=== PATIENT | male | born 1965 | race Caucasian/White ===

== ENCOUNTER 2017-04-04 11:42 | Day surgery (SDC) | payer OTHER ==
[2017-03-31 15:16] VITALS: BMI 25.6
[~2017-04-04 11:42] MED LIST: LACTATED RINGERS 1,000 ML IV SCH
[2017-04-04 11:59] VITALS: RESP 16; TEMP 97.4
[2017-04-04] MEDS ORDERED: LIDOCAINE 1% 20 ML VIAL (10MG/ML) FOR IV START INTRADERMA ONE (12:02)
[2017-04-04] MEDS ORDERED: PROPOFOL 10 MG/ML 20 ML VIAL IV ONE (13:50)
--- NOTE | 2017-04-04 14:17 | P.PCN ---
Date of Procedure: 04/04/17 Procedure(s) Performed: Procedure: Total colonoscopy. Preoperative diagnosis: History of diverticulitis and abnormal CT. Postoperative diagnosis: 1. Diverticulosis with no evidence of acute diverticulitis or strictures. 2. No polyps or cancer. Preparation: HalfLytely prep. Sedation: Was provided by anesthesia. Brief clinical history: The patient is a 51-year-old male who I have evaluated in the office because of recent episode of diverticulitis and abnormal CT. The patient was prescribed antibiotics and this evaluation was scheduled few weeks after that to assess for any precipitating causes, including neoplasia or inflammatory bowel disease, and to rule out strictures or other complications. Procedure: With the patient on his left lateral decubitus position and after informed consent and adequate sedation, the perianal area was inspected and it did not show any fissures or fistulas. There were no masses felt on digital rectal examination. The Olympus CFQ 160L video colonoscope was then inserted in the rectum in the usual fashion and advanced to the cecum. There were multiple diverticular orifices seen scattered in the sigmoid and left side with some areas of submucosal hemorrhage in the vicinity of diverticular orifices in the distal sigmoid consistent with prior bout(s) of diverticulitis. There were no strictures. On the right side there were a few small diverticular orifices scattered with no evidence of acute diverticulitis. No polyps or tumors were seen. The mucosa, otherwise, appeared healthy. I retroflexed the endoscope in the rectum before the endoscope was withdrawn. The patient tolerated the procedure well. Plan: The patient was reassured and I discussed with him and his mother. He will follow up with you as planned and I recommended repeat exam in 10 years.
[2017-04-04 14:36] VITALS: BP 124/81; PULSE 82
== END 2017-04-04 14:54 | disposition home or self-care (01) ==
LOC: ORWHC2ENDO 11:42
DX: K57.30 Diverticulosis of large intestine without perforation or abscess without bleeding (principal); F17.200 Nicotine dependence, unspecified, uncomplicated
CPT/HCPCS: 45378; J2704

== ENCOUNTER → 2017-10-19 | Outpatient (CLI) | payer OTHER ==
--- NOTE | 2017-10-19 11:55 | CT ---
EXAMINATION TYPE: CT abdomen pelvis wo con DATE OF EXAM: 10/19/2017 COMPARISON: NONE INDICATION: RLQ pain DLP: 877 mGycm, Automated exposure control for dose reduction was used. CONTRAST: 0 mL of . Study performed without Oral Contrast TECHNIQUE: Axial images were obtained from above the diaphragm to the pubic rami in the axial plane a t 5 mm thick sections. Reconstructed images are reviewed on the computer in the coronal plane. FINDINGS: Limited CT sections are obtained the lung bases. The lung bases are clear. CT ABDOMEN: Liver: Normal Spleen: Normal Pancreas: Normal Adrenal glands: The adrenal glands are normal. Gallbladder: Normal Kidneys: No masses are evident. No hydronephrosis is present. No cysts are present. No renal stone s are evident. Aorta: Vascular calcification is within the aorta. Inferior vena cava: Normal. CT PELVIS: Loops of bowel within the abdomen and pelvis are normal. Studies performed without oral contrast limiting the evaluation. Appendix: There are inflammatory changes adjacent to the cecum. Is difficult to separate the appendix from the terminal ileum. There is a curvilinear calcific density which may be an appendicolith or re sidual contrast within the appendix. This structure is prominent. Clinical management of suspected ap pendicitis is recommended. Urinary bladder: Normal. Genitourinary structures: Prostate appears unremarkable. Osseous structures: No suspicious lytic or sclerotic lesions. IMPRESSIONS: 1. Some inflammatory change in the expected region of the appendix. What appears to be the appendix is dilated although difficult to separate from the terminal ileum. Clinical management of suspected a ppendicitis is recommended.
== END | disposition home or self-care (01) ==
LOC: RADCTMAIN 10:41
PROVIDERS: ATTEND Family Medicine
DX: R93.5 Abnormal findings on diagnostic imaging of other abdominal regions, including retroperitoneum (principal); R10.31 Right lower quadrant pain
CPT/HCPCS: 74176

== ENCOUNTER → 2017-12-06 | Outpatient (CLI) | payer OTHER ==
--- NOTE | 2017-12-06 11:35 | CT ---
EXAMINATION TYPE: CT abdomen pelvis wo con DATE OF EXAM: 12/06/2017 COMPARISON: 10/19/2017 INDICATION: Attn: appendix; Abdominal Abscess DLP: 1038 mGycm, Automated exposure control for dose reduction was used. CONTRAST: 0 mL of Isovue 370. Study performed without Oral Contrast TECHNIQUE: Axial images were obtained from above the diaphragm to the pubic rami in the axial plane a t 5 mm thick sections. Reconstructed images are reviewed on the computer in the coronal plane. FINDINGS: Limited CT sections are obtained the lung bases. The lung bases are clear. CT ABDOMEN: Liver: Small calcifications along the diaphragm are within the superior right lobe liver. Spleen: Normal Pancreas: Normal Adrenal glands: The adrenal glands are normal. Gallbladder: Normal Kidneys: No masses are evident. No hydronephrosis is present. No cysts are present. No renal stone s are identified. Aorta: Vascular calcification is within the aorta. Inferior vena cava: Normal. CT PELVIS: Loops of bowel within the abdomen and pelvis are normal. Study is without oral contrast limiting bowel loop evaluation. Appendix: Not identified. No suspicious inflammatory changes are evident some mild thickening of the cecum may be present. What may be the appendix contains an appendicolith and is dilated at 1.8 cm. Th is is somewhat difficult to separate from the terminal ileum. Clinical management of any suspected ap pendicitis be required. Urinary bladder: Normal. Genitourinary structures: Prostate appears normal. Osseous structures: No suspicious lytic or sclerotic lesions. IMPRESSIONS: 1. Difficulty what appears to be the appendix from the terminal ileum. An appendicolith m ay be present. The appendix appears dilated although no inflammatory changes are adjacent. Clinical m anagement of any suspected appendicitis will be required. Findings appear less suspicious than the co mparison. 2. Intra-abdominal abscess is not identified.
== END | disposition home or self-care (01) ==
LOC: RADCTMAIN 09:03
PROVIDERS: ATTEND Family Medicine
DX: K65.1 Peritoneal abscess (principal)
CPT/HCPCS: 74176

== ENCOUNTER 2021-07-10 09:19 | Inpatient (IN) | payer OTHER ==
--- NOTE | 2021-07-10 10:03 | ED ---
General Adult HPI - General Chief complaint: Extremity Problem,Nontraumatic Stated complaint: bilat leg swelling Time Seen by Provider: 07/10/21 09:25 Source: patient, RN notes reviewed, old records reviewed Mode of arrival: ambulatory Limitations: no limitations - History of Present Illness Initial comments: This is a 56-year-old male who presents emergency Department with a past medical history significant for alcoholism. Patient states since Thanksgiving he has had swelling in his legs which is gone progressively worse states is going up his legs into his scrotum and now into his belly and upper extremities. Patient states she's also had a change in his skin color and his mother told him that his eyes appear to be yellow. Patient states that he continues drinking his last drink was last evening. Patient denies any chest pain or difficulty breathing. Patient denies any recent fever chills or cough. Patient denies any significant abdominal pain is somewhat uncomfortable because it is significantly more distended than normal. - Related Data Home Medications Medication Instructions Recorded Confirmed No Known Home Medications 03/31/17 04/04/17 Allergies Allergy/AdvReac Type Severity Reaction Status Date / Time No Known Allergies Allergy Verified 07/10/21 09:24 Review of Systems ROS Statement: Those systems with pertinent positive or pertinent negative responses have been documented in the HPI. ROS Other: All systems not noted in ROS Statement are negative. Past Medical History Additional Past Medical History / Comment(s): RECENT ABSCESS TO LOWER INTESTINES- WAS ON ANTIBIOTICS-RESOLVED AT THIS TIME History of Any Multi-Drug Resistant Organisms: None Reported Past Surgical History: No Surgical Hx Reported Past Anesthesia/Blood Transfusion Reactions: No Reported Reaction Past Psychological History: No Psychological Hx Reported Smoking Status: Never smoker Past Alcohol Use History: Daily Past Drug Use History: Marijuana - Past Family History Mother Family Medical History: No Reported History General Exam - General Exam Comments Initial Comments: GENERAL: Patient is well-developed and well-nourished. Patient is nontoxic and well-hydrated and is in mild distress. ENT: Neck is soft and supple. No significant lymphadenopathy is noted. Oropharynx is clear. Moist mucous membranes. Neck has full range of motion without eliciting any pain. EYES: Patient has sclera icterus. Extraocular movements were intact and pupils were equal round and reactive to light. Eyelids were unremarkable. PULMONARY: Unlabored respirations. Good breath sounds bilaterally. No audible rales rhonchi or wheezing was noted. CARDIOVASCULAR: There is a regular rate and rhythm without any murmurs gallops or rubs. ABDOMEN: Abdomen is diffusely distended consistent with ascites. SKIN: Patient appears jaundiced NEUROLOGIC: Patient is alert and oriented x3. Cranial nerves II through XII are grossly intact. Motor and sensory are also intact. Normal speech, volume and content. Symmetrical smile. MUSCULOSKELETAL: Normal extremities with adequate strength and full range of motion. Patient has 2+ edema bilateral into his scrotum and abdomen. LYMPHATICS: No significant lymphadenopathy is noted PSYCHIATRIC: Normal psychiatric evaluation. Limitations: no limitations Course Vital Signs 07/10/21 07/10/21 09:21 10:07 Temperature 98 F Pulse Rate 133 H 113 H Respiratory 22 18 Rate Blood Pressure 166/95 152/85 O2 Sat by Pulse 99 97 Oximetry Medical Decision Making - Medical Decision Making EKG shows sinus tachycardia at 117 bpm MA interval is 2006 QT interval 318 QTC is 443. Patient's EKG shows no ST segment depression or elevation Chest x-ray shows a partial infiltrate in the right base. I spoke with Dr. Shell he agreed to admit the patient admitted the patient wrote admitting orders. - Lab Data Result diagrams: 07/10/21 09:37 07/10/21 09:37 Lab Results 07/10/21 07/10/21 07/10/21 Range/Units 09:37 09:37 09:37 WBC 8.3 (3.8-10.6) k/uL RBC 3.51 L (4.30-5.90) m/uL Hgb 12.9 L (13.0-17.5) gm/dL Hct 39.2 (39.0-53.0) % MCV 111.8 H (80.0-100.0) fL MCH 36.6 H (25.0-35.0) pg MCHC 32.7 (31.0-37.0) g/dL RDW 14.8 (11.5-15.5) % Plt Count 63 L (150-450) k/uL MPV 10.9 Neutrophils % (Manual) 54 % Lymphocytes % (Manual) 19 % Monocytes % (Manual) 15 % Eosinophils % (Manual) 8 % Basophils % (Manual) 4 % Neutrophils # (Manual) 4.48 (1.3-7.7) k/uL Lymphocytes # (Manual) 1.58 (1.0-4.8) k/uL Monocytes # (Manual) 1.25 H (0-1.0) k/uL Eosinophils # (Manual) 0.66 (0-0.7) k/uL Basophils # (Manual) 0.33 H (0-0.2) k/uL Nucleated RBCs 0 (0-0) /100 WBC Manual Slide Review Performed Poikilocytosis (manual Present Macrocytosis Marked A Sodium 137 (137-145) mmol/L Potassium 4.1 (3.5-5.1) mmol/L Chloride 108 H (98-107) mmol/L Carbon Dioxide 22 (22-30) mmol/L Anion Gap 7 mmol/L BUN 9 (9-20) mg/dL Creatinine 0.76 (0.66-1.25) mg/dL Est GFR (CKD-EPI)AfAm >90 (>60 ml/min/1.73 sqM) Est GFR (CKD-EPI)NonAf >90 (>60 ml/min/1.73 sqM) Glucose 122 H (74-99) mg/dL Calcium 7.8 L (8.4-10.2) mg/dL Magnesium 1.6 (1.6-2.3) mg/dL Total Bilirubin 9.6 H (0.2-1.3) mg/dL AST 138 H (17-59) U/L ALT 70 H (4-49) U/L Alkaline Phosphatase 421 H (38-126) U/L NT-Pro-B Natriuret Pep pg/mL Total Protein 7.0 (6.3-8.2) g/dL Albumin 2.4 L (3.5-5.0) g/dL Amylase 46 (30-110) U/L Lipase 259 (23-300) U/L Serum Alcohol 182 mg/dL Coronavirus (PCR) (Not Detectd) 07/10/21 07/10/21 Range/Units 10:01 10:06 WBC (3.8-10.6) k/uL RBC (4.30-5.90) m/uL Hgb (13.0-17.5) gm/dL Hct (39.0-53.0) % MCV (80.0-100.0) fL MCH (25.0-35.0) pg MCHC (31.0-37.0) g/dL RDW (11.5-15.5) % Plt Count (150-450) k/uL MPV Neutrophils % (Manual) % Lymphocytes % (Manual) % Monocytes % (Manual) % Eosinophils % (Manual) % Basophils % (Manual) % Neutrophils # (Manual) (1.3-7.7) k/uL Lymphocytes # (Manual) (1.0-4.8) k/uL Monocytes # (Manual) (0-1.0) k/uL Eosinophils # (Manual) (0-0.7) k/uL Basophils # (Manual) (0-0.2) k/uL Nucleated RBCs (0-0) /100 WBC Manual Slide Review Poikilocytosis (manual Macrocytosis Sodium (137-145) mmol/L Potassium (3.5-5.1) mmol/L Chloride (98-107) mmol/L Carbon Dioxide (22-30) mmol/L Anion Gap mmol/L BUN (9-20) mg/dL Creatinine (0.66-1.25) mg/dL Est GFR (CKD-EPI)AfAm (>60 ml/min/1.73 sqM) Est GFR (CKD-EPI)NonAf (>60 ml/min/1.73 sqM) Glucose (74-99) mg/dL Calcium (8.4-10.2) mg/dL Magnesium (1.6-2.3) mg/dL Total Bilirubin (0.2-1.3) mg/dL AST (17-59) U/L ALT (4-49) U/L Alkaline Phosphatase (38-126) U/L NT-Pro-B Natriuret Pep 104 pg/mL Total Protein (6.3-8.2) g/dL Albumin (3.5-5.0) g/dL Amylase (30-110) U/L Lipase (23-300) U/L Serum Alcohol mg/dL Coronavirus (PCR) Not Detected (Not Detectd) Disposition Clinical Impression: Cirrhosis, Anasarca, Ascites, Alcohol intoxication Disposition: [facility] Referrals: Rey Shell MD [Primary Care Provider] - 1-2 days Time of Disposition: 10:53
[2021-07-10 10:04] LABS: HCT 39.2 % (39.0-53.0); HGB 12.9 gm/dL (13.0-17.5); MCH 36.6 pg (25.0-35.0); MCHC 32.7 g/dL (31.0-37.0); MCV 111.8 fL (80.0-100.0); Macrocytosis Marked; Mean Platelet Volume 10.9; Platelet Count 63 k/uL (150-450); RBC 3.51 m/uL (4.30-5.90); RDW 14.8 % (11.5-15.5); WBC 8.3 k/uL (3.8-10.6)
[2021-07-10 10:06] LABS: ALT 70 U/L (4-49); AST 138 U/L (17-59); African American GFR (CKD) >90 (>60 ml/min/1.73 sqM); Albumin 2.4 g/dL (3.5-5.0); Alkaline Phosphatase 421 U/L (38-126); Amylase 46 U/L (30-110); Anion Gap 7 mmol/L; Blood Urea Nitrogen 9 mg/dL (9-20); Calcium 7.8 mg/dL (8.4-10.2); Carbon Dioxide 22 mmol/L (22-30); Chloride 108 mmol/L (98-107); Glucose 122 mg/dL (74-99); Lipase 259 U/L (23-300); Non-African American GFR(CKD) >90 (>60 ml/min/1.73 sqM); Potassium 4.1 mmol/L (3.5-5.1); Sodium 137 mmol/L (137-145); Total Bilirubin 9.6 mg/dL (0.2-1.3)
[2021-07-10 10:12] LABS: Alcohol 182 mg/dL
--- NOTE | 2021-07-10 10:12 | XR ---
EXAMINATION TYPE: XR chest 2V DATE OF EXAM: 07/10/2021 COMPARISON: None HISTORY: Shortness of breath TECHNIQUE: Frontal and lateral views of the chest are obtained. FINDINGS: There is mild ill-defined opacity in one of the lung bases posteriorly best seen on the la teral view. Based on the frontal view, this most likely is in the right lung base. The findings are m ost consistent with an pneumonic infiltrate clinical correlation short-term follow-up to resolution i s recommended. There is no large pleural effusion and no pneumothorax. Heart size is normal and the pulmonary vascul ature is not congested. The osseous structures are intact IMPRESSION: Infiltrate in one of the lung bases posteriorly likely in the right lung base. Clinical correlation short-term follow-up to resolution is recommended.
[2021-07-10 10:50] LABS: Basophils # (M) 0.33 k/uL (0-0.2); Eosinophils # (M) 0.66 k/uL (0-0.7); Lymphocytes # (M) 1.58 k/uL (1.0-4.8); Monocytes # (M) 1.25 k/uL (0-1.0); Neutrophils # (M) 4.48 k/uL (1.3-7.7); Neutrophils % (M) 54 %; Nucleated Red Blood Cells 0 /100 WBC (0-0); Total Cells Counted 100
[2021-07-10 10:51] LABS: Poikilocytosis (M) Present
[2021-07-10] MEDS ORDERED: SODIUM CHLORIDE 0.9% 1,000 ML IV ONE (11:15)
[2021-07-10] MEDS ORDERED: LORazepam 2 MG/ML INJ IV PRN ×3 (11:19)
[2021-07-10] MEDS ORDERED: THIAMINE 100 MG/ML 2 ML VIAL IM STA (11:19)
[2021-07-10 13:20] LABS: Appearance,Urine Cloudy (Clear); Bacteria,Urine Rare /hpf; Bilirubin,Urine 3+ (Negative); Blood,Urine Negative (Negative); Color,Urine Dark Brown; Glucose,Urine (UA) Trace (Negative); Hyaline Casts,Urine 41 /lpf (0-2); Ketones,Urine Trace (Negative); Leukocyte Esterase,Urine Negative (Negative); Mucus,Urine Many /hpf; Nitrite,Urine Negative (Negative); Protein,Urine 1+ (Negative); RBC,Urine 3 /hpf (0-5); Specific Gravity,Urine 1.034 (1.001-1.035); Squamous Epithelial Cell,Urine 2 /hpf (0-4); WBC,Urine 6 /hpf (0-5)
[2021-07-10] MEDS: cloNIDine HCL 0.1 MG TAB PO SCH ×3 (13:44→22:46)
[2021-07-10] MEDS: THIAMINE 100 MG TAB PO SCH (17:11)
--- NOTE | 2021-07-10 18:07 | US ---
EXAMINATION TYPE: US abdomen complete DATE OF EXAM: 07/10/2021 COMPARISON: CT 2013 CLINICAL HISTORY: cirrhosis. EXAM MEASUREMENTS: Liver Length: 15.7 cm Gallbladder Wall: 0.6 cm CBD: 0.3 cm Spleen: 10.8 cm Right Kidney: 11.4 x 5.1 x 5.4 cm Left Kidney: 11.7 x 5.9 x 5.1 cm Pancreas: obscured by overlying midline bowel gas Liver: nodular contour . Mild atrophy. Gallbladder: multiple mobile echogenic foci, thickened wall at 0.6cm Evidence for sonographic Abernathy's sign: no CBD: visualized portions wnl Spleen: wnl Right Kidney: No shadowing calculi or renal collecting system dilatation. Left Kidney: No shadowing calculi or renal collecting system dilatation. Upper IVC: Noncollapsed. Abd Aorta: obscured by overlying midline bowel gas Ascites noted Right pleural effusion noted IMPRESSION: 1. Hepatic cirrhosis and ascites. 2. Cholelithiasis with gallbladder wall thickening and trace pericholecystic fluid which may be secon bhavin to acute cholecystitis or secondary to ascites. Clinical correlation for acute cholecystitis rec ommended, HIDA scan may be beneficial in this case.
[2021-07-10] MEDS ORDERED: IOPAMIDOL CONTRAST (ORAL USE) VIAL PO PRN (21:59)
--- NOTE | 2021-07-11 00:16 | CT ---
EXAMINATION TYPE: CT chest abdomen wo con DATE OF EXAM: 07/10/2021 COMPARISON: CT abdomen pelvis 12/06/2017 HISTORY: pleural effusion,elevated lfts CT DLP: 1068.8 mGycm Automated exposure control for dose reduction was used. Images obtained from the thoracic inlet to the mid pelvis with oral contrast only. There is moderate right pleural effusion. There is airspace infiltrate atelectasis right lower lobe. Heart size is fairly normal. There is no mediastinal adenopathy. There are no hilar masses. There is no pericardial effusion. Liver is small and irregular consistent with cirrhosis. There is large amount of abdominal ascites fl uid. Spleen measures 10.5 cm. The liver measures 16 cm. There is no evidence of pancreatic mass. The stomach is intact. The kidneys have normal size. There is no hydronephrosis. There is no adrenal mass. There is no retro peritoneal adenopathy. There is no sign of a bowel obstruction. There is normal oral contrast opacifi cation of the small bowel. No evidence of small bowel obstruction. There is some subcutaneous edema a round the abdomen. Thoracic and lumbar vertebrae have normal alignment. There is no compression fract ure. Sternum is intact. IMPRESSION: There is moderately large amount of abdominal ascites fluid. There is moderate right pleural effusion . Changes in the liver consistent with cirrhosis. These abnormalities appear new compared to old exam . No bowel obstruction. Subcutaneous edema around the abdomen appears new compared to old exam.
[2021-07-11] MEDS: THIAMINE 100 MG TAB PO SCH ×2 (07:54→16:29)
[2021-07-11] MEDS: cloNIDine HCL 0.1 MG TAB PO SCH ×3 (07:54→22:32)
--- NOTE | 2021-07-11 11:25 | HP ---
HISTORY AND PHYSICAL DATE OF SERVICE: 07/10/2021 This patient is a 56-year-old white male who was admitted to the hospital with ascites, severe swelling in his lower extremities and scrotal swelling. He has a history of alcoholism. He has severe elevated bilirubin over 8 and he had the acute liver failure of unclear etiology, possibly due to chronic alcoholism. He has not been seen by a doctor in many years. He takes no medications at home. ALLERGIES: NEGATIVE. REVIEW OF SYSTEMS: Fourteen-point review of systems negative. PAST MEDICAL HISTORY: Recent abscess to lower intestines, was on antibiotics and resolved. He does not smoke. He has been drinking alcohol, like 7 beers a day, for 20 to 30 years. Marijuana. FAMILY HISTORY: Mother with hypertension. PHYSICAL EXAMINATION: Well developed, well nourished. Psych: Fair mood and affect. Cardiovascular S1, S2. Lungs clear. Rales at the base. GI ascitic wave positive. Abdominal bloating due to ascites. Extremities show scrotal edema and 2 to 3+ pedal edema throughout his lower extremities consistent with ascites with third spacing into lower extremities. Psych normal mood and affect. His pulse rate is high, 100 to 120s, temperature 98. Blood pressure is high, 150s to 160s over 80s to 90s, O2 97 to 99. EKG shows no acute ischemia. Chest x-ray shows partial infiltrate in the right lung base. Hemoglobin is 12.9. Unclear etiology for anemia, possibly due to liver failure and ascites. Glucose 122. AST is 138, ALT 70, alkaline phosphatase 421, bilirubin 9.5. COVID negative. ASSESSMENT: 1. Cirrhosis and ascites. 2. Alcohol intoxication. 3. Right pleural effusion. CT of chest, abdomen and ultrasound of the abdomen and pelvis. Thoracentesis will be done. Surgical consult. Elevated liver enzymes. MMODL / IJN: [id number] /
--- NOTE | 2021-07-11 11:53 | P.GSCN ---
History of Present Illness Consult date: 07/11/21 Reason for Consult: Hyperbilirubinemia History of present illness: Is a 56-year-old male with extensive alcohol use history. Patient states that he noticed C-turn jaundiced after New Year's. He states he drinks 6-12 beers per day. He hasn't drank in 2 days. He denies any abdominal pain. Past Medical History Past Medical History: Skin Disorder Additional Past Medical History / Comment(s): RECENT ABSCESS TO LOWER INTESTINES- WAS ON ANTIBIOTICS-RESOLVED AT THIS TIME, psoriasis history. History of Any Multi-Drug Resistant Organisms: None Reported Past Surgical History: No Surgical Hx Reported Past Anesthesia/Blood Transfusion Reactions: No Reported Reaction Past Psychological History: No Psychological Hx Reported Smoking Status: Never smoker Past Alcohol Use History: Daily Past Drug Use History: Marijuana Additional Drug Use History / Comment(s): SMOKES 1-2 TIMES WEEKLY - Past Family History Mother Family Medical History: No Reported History Medications and Allergies Home Medications Medication Instructions Recorded Confirmed Type Ibuprofen [Motrin Ib] 800 mg PO Q8H PRN 07/10/21 07/10/21 History Multivitamins, Thera [Multivitamin 1 tab PO DAILY 07/10/21 07/10/21 History (formulary)] Allergies Allergy/AdvReac Type Severity Reaction Status Date / Time No Known Allergies Allergy Verified 07/10/21 13:33 Surgical - Exam Vital Signs Temp Pulse Resp BP Pulse Ox 98 F 133 H 22 166/95 99 07/10/21 09:21 07/10/21 09:21 07/10/21 09:21 07/10/21 09:21 07/10/21 09:21 - General well developed, well nourished, no distress - Eyes PERRL - ENT normal pinna - Neck no masses - Respiratory normal expansion - Cardiovascular Rhythm: regular - Abdomen Abdomen: soft, non tender Results - Labs 07/10/21 09:37 07/10/21 09:37 Abnormal Lab Results - Last 24 Hours (Table) 07/10/21 Range/Units 10:06 Urine Protein 1+ H (Negative) Urine Glucose (UA) Trace H (Negative) Urine Ketones Trace H (Negative) Urine Bilirubin 3+ H (Negative) Urine WBC 6 H (0-5) /hpf Urine Bacteria Rare H (None) /hpf Hyaline Casts 41 H (0-2) /lpf Urine Mucus Many H (None) /hpf Assessment and Plan Assessment: Alcohol cirrhosis. His elevated liver function tests are most likely due to focal abuse. No surgical intervention is planned.
[2021-07-11 12:35] LABS: Basophils # (A) 0.08 X 10*3/uL (0.00-0.10); Basophils % (A) 1.5 %; Eosinophils # (A) 0.19 X 10*3/uL (0.04-0.35); Eosinophils % (A) 3.5 %; HCT 33.3 % (39.6-50.0); Lymphocytes # (A) 1.09 X 10*3/uL (0.90-5.00); MCH 35.1 pg (27.0-32.0); MCV 106.4 fL (80.0-97.0); Mean Platelet Volume 12.5 fL (9.5-12.2); Monocytes # (A) 0.78 X 10*3/uL (0.20-1.00); Monocytes % (A) 14.3 %; Neutrophils # (A) 3.28 X 10*3/uL (1.80-7.70); Neutrophils % (A) 60.1 %; Platelet Count 58 X 10*3/uL (140-440); RBC 3.13 X 10*6/uL (4.40-5.60); RDW 15.8 % (11.5-14.5); WBC 5.45 X 10*3/uL (4.50-10.00)
[2021-07-11 12:36] LABS: Macrocytosis (M) 2+
--- NOTE | 2021-07-11 12:46 | PN ---
PROGRESS NOTE This 56-year-old white male was admitted with acute ascites and liver failure. CT scan of his abdomen and chest showed large amounts of ascites, for which Interventional Radiology was consulted. Will monitor his electrolytes. He is on Catapres for hypertension and tachycardia secondary to alcohol withdrawal. He is saturating 95 on room air with blood pressure 150/73. His pulse is 92-106, temperature 98.3. ASSESSMENT: 1. Acute ascites. 2. Acute liver failure secondary to alcohol intoxication. Rule out hepatitis. Wait for Interventional Radiology and Surgery to see him for possible thoracentesis and paracentesis prior to going home. Possibly some diuretics will be needed. Ammonia level is not elevated. It is at 25. Please see further orders. MMODL / IJN: [id number] /
[2021-07-11 13:32] LABS: African American GFR (CKD) 129.6 (60.0-200.0); Albumin 2.1 g/dL (3.8-4.9); Albumin/Globulin Ratio 0.61 (1.60-3.17); Anion Gap 9.2 mmol/L (10.00-18.00); BUN/Creat Ratio 12.32 Ratio (12.00-20.00); Blood Urea Nitrogen 7.8 mg/dL (9.0-27.0); Carbon Dioxide 21.7 mmol/L (20.0-27.5); Globulin 3.4 g/dL (1.6-3.3); Non-African American GFR(CKD) 111.8 (60.0-200.0); Potassium 4.2 mmol/L (3.5-5.5); Total Bilirubin 9.4 mg/dL (0.30-1.20); Total Protein 5.5 g/dL (6.2-8.2)
[2021-07-11 17:33] LABS: Hepatitis A Antibody IgM Nonreactive (Nonreactive); Hepatitis B Core IgM Nonreactive (Nonreactive); Hepatitis B Surface Antigen Nonreactive (Nonreactive); Hepatitis C IgG Antibody Nonreactive (Nonreactive)
[2021-07-12] MEDS: cloNIDine HCL 0.1 MG TAB PO SCH ×3 (08:46→20:59)
[2021-07-12] MEDS: THIAMINE 100 MG TAB PO SCH ×2 (08:46→17:38)
[2021-07-12 11:17] LABS: African American GFR (CKD) 142.4 (60.0-200.0); Albumin/Globulin Ratio 0.59 (1.60-3.17); Anion Gap 8.1 mmol/L (10.00-18.00); Carbon Dioxide 21.9 mmol/L (20.0-27.5); Globulin 3.4 g/dL (1.6-3.3); Non-African American GFR(CKD) 122.9 (60.0-200.0); Total Bilirubin 9.6 mg/dL (0.30-1.20); Total Protein 5.4 g/dL (6.2-8.2)
[2021-07-12 11:44] LABS: INR 2.1 (<1.2); Prothrombin Time 20.4 sec (9.0-12.0)
[2021-07-12 12:17] LABS: Platelet Count 53 k/uL (150-450)
[2021-07-12] MEDS: FUROSEMIDE 20 MG TAB PO SCH (13:51)
[2021-07-12 13:53] LABS: Basophils # (A) 0.06 X 10*3/uL (0.00-0.10); Eosinophils # (A) 0.22 X 10*3/uL (0.04-0.35); Eosinophils % (A) 3.6 %; HGB 10.9 g/dL (13.0-17.0); Lymphocytes # (A) 1.35 X 10*3/uL (0.90-5.00); Lymphocytes % (A) 22.2 %; MCH 35.4 pg (27.0-32.0); MCV 107.1 fL (80.0-97.0); Mean Platelet Volume 12.9 fL (9.5-12.2); Monocytes # (A) 1.02 X 10*3/uL (0.20-1.00); Monocytes % (A) 16.7 %; Neutrophils # (A) 3.42 X 10*3/uL (1.80-7.70); Neutrophils % (A) 56.2 %; Platelet Count 56 X 10*3/uL (140-440); RBC 3.08 X 10*6/uL (4.40-5.60); RDW 15.9 % (11.5-14.5); WBC 6.09 X 10*3/uL (4.50-10.00)
--- NOTE | 2021-07-12 14:28 | P.PN ---
Subjective Progress Note Date: 07/12/21 CHIEF COMPLAINT: Hyperbilirubinemia HISTORY OF PRESENT ILLNESS: Patient has history of extensive alcohol use. Patient is jaundiced. He denies any abdominal pain. He is scheduled for paracentesis today. He denies any nausea or vomiting. Afebrile. WBC 6.09 hemoglobin 10.9 platelets 53 INR 2.1 total bilirubin 9.60 AST 98 ALT 54 alk phos 250 hepatitis panel negative serum alcohol level CLXXXII PHYSICAL EXAM: VITAL SIGNS: Reviewed. GENERAL: Well-developed in no acute distress. HEENT: No sclera icterus. Extraocular movements grossly intact. Moist buccal mucosa. Head is atraumatic, normocephalic. ABDOMEN: Soft. Distended nontender NEUROLOGIC: Alert and oriented. Cranial nerves II through XII grossly intact. ASSESSMENT: 1. Alcohol liver cirrhosis 2. Elevated LFTs and bilirubin due to alcohol abuse PLAN: -No surgical intervention planned -Continue supportive care Physician [facility] note has been reviewed by physician. Signing provider agrees with the documented findings, assessment, and plan of care. Objective - Vital Signs Vital signs: Vital Signs Temp 98.3 F 07/12/21 08:00 Pulse 86 07/12/21 08:00 Resp 16 07/12/21 08:00 BP 133/72 07/12/21 08:00 Pulse Ox 96 07/12/21 08:00 Intake & Output 07/11/21 07/12/21 07/12/21 18:59 06:59 18:59 Intake Total 708 Balance 708 Intake: Oral 708 Other: # Voids 1 2 - Labs CBC & Chem 7: 07/12/21 10:37 07/12/21 05:39 Labs: Abnormal Lab Results - Last 24 Hours (Table) 07/12/21 07/12/21 07/12/21 Range/Units 05:39 05:39 10:37 RBC 3.08 L (4.40-5.60) X 10*6/uL Hgb 10.9 L (13.0-17.0) g/dL Hct 33.0 L (39.6-50.0) % MCV 107.1 H (80.0-97.0) fL MCH 35.4 H (27.0-32.0) pg RDW 15.9 H (11.5-14.5) % Plt Count 56 L 53 L (140-440) X 10*3/uL MPV 12.9 H (9.5-12.2) fL Monocytes # 1.02 H (0.20-1.00) X 10*3/uL Immature Plt Fraction 14.0 H (1.1-6.1) % PT (9.0-12.0) sec INR (<1.2) Sodium 133 L (135-145) mmol/L Anion Gap 8.10 L (10.00-18.00) mmol/L BUN 7.0 L (9.0-27.0) mg/dL Creatinine 0.5 L (0.6-1.5) mg/dL Calcium 8.0 L (8.7-10.3) mg/dL Total Bilirubin 9.60 H (0.30-1.20) mg/dL AST 98 H (14-35) U/L ALT 54 H (10-49) U/L Alkaline Phosphatase 215 H (41-126) U/L Total Protein 5.4 L (6.2-8.2) g/dL Albumin 2.0 L (3.8-4.9) g/dL Globulin 3.4 H (1.6-3.3) g/dL Albumin/Globulin Ratio 0.59 L (1.60-3.17) g/dL 07/12/21 Range/Units 10:37 RBC (4.40-5.60) X 10*6/uL Hgb (13.0-17.0) g/dL Hct (39.6-50.0) % MCV (80.0-97.0) fL MCH (27.0-32.0) pg RDW (11.5-14.5) % Plt Count (140-440) X 10*3/uL MPV (9.5-12.2) fL Monocytes # (0.20-1.00) X 10*3/uL Immature Plt Fraction (1.1-6.1) % PT 20.4 H (9.0-12.0) sec INR 2.1 H (<1.2) Sodium (135-145) mmol/L Anion Gap (10.00-18.00) mmol/L BUN (9.0-27.0) mg/dL Creatinine (0.6-1.5) mg/dL Calcium (8.7-10.3) mg/dL Total Bilirubin (0.30-1.20) mg/dL AST (14-35) U/L ALT (10-49) U/L Alkaline Phosphatase (41-126) U/L Total Protein (6.2-8.2) g/dL Albumin (3.8-4.9) g/dL Globulin (1.6-3.3) g/dL Albumin/Globulin Ratio (1.60-3.17) g/dL
--- NOTE | 2021-07-12 14:56 | PN ---
PROGRESS NOTE This 56-year-old white male remains 96% on room air. Blood pressure 133/72, temp 98.3, respiratory rate 16-18. He was admitted with anasarca-type changes and liver failure, acute on chronic anemia, thrombocytopenia. Sodium is 133. BUN is 7, creatinine is 0.5. Negative for hepatitis. Continue with diuresis and cirrhosis type treatment. Please see surgical recommendations. MMODL / IJN: [id number] /
[2021-07-12 23:19] LABS: INR 2.1 (<1.2); Prothrombin Time 20.8 sec (9.0-12.0)
[2021-07-13 07:55] VITALS: TEMP 98
[2021-07-13] MEDS ORDERED: PHYTONADIONE ORAL 5 MG/5 ML ORAL.SYRG PO STA (08:55)
[2021-07-13] MEDS: THIAMINE 100 MG TAB PO SCH ×2 (08:56→16:35)
[2021-07-13] MEDS: FUROSEMIDE 20 MG TAB PO SCH (08:56)
[2021-07-13] MEDS: cloNIDine HCL 0.1 MG TAB PO SCH ×2 (08:56→16:35)
[2021-07-13 09:17] LABS: Albumin/Globulin Ratio 0.67 (1.60-3.17); Anion Gap 8.3 mmol/L (10.00-18.00); Blood Urea Nitrogen 9.1 mg/dL (9.0-27.0); Calcium 8.1 mg/dL (8.7-10.3); Carbon Dioxide 24.7 mmol/L (20.0-27.5); Potassium 4.4 mmol/L (3.5-5.5); Total Bilirubin 9.3 mg/dL (0.30-1.20)
--- NOTE | 2021-07-13 10:19 | US ---
EXAMINATION TYPE: US abdomen limited DATE OF EXAM: 07/13/2021 COMPARISON: US & CT CLINICAL HISTORY: assess for fluid pocket please. All four quadrants demonstrate small amount of free fluid. IMPRESSION: There is only a small amount of free fluid within the abdomen
--- NOTE | 2021-07-13 10:53 | P.PN ---
Subjective Progress Note Date: 07/13/21 CHIEF COMPLAINT: Hyperbilirubinemia HISTORY OF PRESENT ILLNESS: Patient has history of extensive alcohol use. Patient is jaundiced. He denies any abdominal pain. He is scheduled for paracentesis today. He denies any nausea or vomiting. Afebrile. Total bilirubin 9.3 AST 78 ALT 48 alk phos 183 PHYSICAL EXAM: VITAL SIGNS: Reviewed. GENERAL: Well-developed in no acute distress. HEENT: Extraocular movements grossly intact. Moist buccal mucosa. Head is atraumatic, normocephalic. ABDOMEN: Soft. Distended nontender NEUROLOGIC: Alert and oriented. Cranial nerves II through XII grossly intact. Skin. Jaundiced ASSESSMENT: 1. Alcohol liver cirrhosis 2. Elevated LFTs and bilirubin due to alcohol abuse PLAN: -No surgical intervention planned -Continue supportive care Physician Count Room Clerk note has been reviewed by physician. Signing provider agrees with the documented findings, assessment, and plan of care. Objective - Vital Signs Vital signs: Vital Signs Temp 98.0 F 07/13/21 07:55 Pulse 88 07/13/21 07:55 Resp 16 07/13/21 08:00 BP 142/77 07/13/21 07:55 Pulse Ox 96 07/13/21 07:55 Intake & Output 07/12/21 07/13/21 07/13/21 18:59 06:59 18:59 Intake Total 300 Balance 300 Intake: Oral 300 Other: # Voids 2 3 - Labs CBC & Chem 7: 07/12/21 10:37 07/13/21 05:28 Labs: Abnormal Lab Results - Last 24 Hours (Table) 07/12/21 07/12/21 07/12/21 Range/Units 05:39 05:39 10:37 RBC 3.08 L (4.40-5.60) X 10*6/uL Hgb 10.9 L (13.0-17.0) g/dL Hct 33.0 L (39.6-50.0) % MCV 107.1 H (80.0-97.0) fL MCH 35.4 H (27.0-32.0) pg RDW 15.9 H (11.5-14.5) % Plt Count 56 L 53 L (140-440) X 10*3/uL MPV 12.9 H (9.5-12.2) fL Monocytes # 1.02 H (0.20-1.00) X 10*3/uL Immature Plt Fraction 14.0 H (1.1-6.1) % PT (9.0-12.0) sec INR (<1.2) Sodium 133 L (135-145) mmol/L Anion Gap 8.10 L (10.00-18.00) mmol/L BUN 7.0 L (9.0-27.0) mg/dL Creatinine 0.5 L (0.6-1.5) mg/dL Calcium 8.0 L (8.7-10.3) mg/dL Total Bilirubin 9.60 H (0.30-1.20) mg/dL AST 98 H (14-35) U/L ALT 54 H (10-49) U/L Alkaline Phosphatase 215 H (41-126) U/L Total Protein 5.4 L (6.2-8.2) g/dL Albumin 2.0 L (3.8-4.9) g/dL Globulin 3.4 H (1.6-3.3) g/dL Albumin/Globulin Ratio 0.59 L (1.60-3.17) g/dL 07/12/21 07/12/21 07/13/21 Range/Units 10:37 17:43 05:28 RBC (4.40-5.60) X 10*6/uL Hgb (13.0-17.0) g/dL Hct (39.6-50.0) % MCV (80.0-97.0) fL MCH (27.0-32.0) pg RDW (11.5-14.5) % Plt Count (140-440) X 10*3/uL MPV (9.5-12.2) fL Monocytes # (0.20-1.00) X 10*3/uL Immature Plt Fraction (1.1-6.1) % PT 20.4 H 20.8 H (9.0-12.0) sec INR 2.1 H 2.1 H (<1.2) Sodium (135-145) mmol/L Anion Gap 8.30 L (10.00-18.00) mmol/L BUN (9.0-27.0) mg/dL Creatinine (0.6-1.5) mg/dL Calcium 8.1 L (8.7-10.3) mg/dL Total Bilirubin 9.30 H (0.30-1.20) mg/dL AST 78 H (14-35) U/L ALT (10-49) U/L Alkaline Phosphatase 183 H (41-126) U/L Total Protein 5.0 L (6.2-8.2) g/dL Albumin 2.0 L (3.8-4.9) g/dL Globulin (1.6-3.3) g/dL Albumin/Globulin Ratio 0.67 L (1.60-3.17) g/dL
[2021-07-13 11:21] LABS: Basophils # (A) 0.07 X 10*3/uL (0.00-0.10); Basophils % (A) 1.2 %; Eosinophils # (A) 0.24 X 10*3/uL (0.04-0.35); Eosinophils % (A) 4.2 %; HCT 32.4 % (39.6-50.0); HGB 10.6 g/dL (13.0-17.0); Lymphocytes # (A) 1.03 X 10*3/uL (0.90-5.00); Lymphocytes % (A) 18.1 %; MCH 35.6 pg (27.0-32.0); MCHC 32.7 g/dL (32.0-37.0); MCV 108.7 fL (80.0-97.0); Mean Platelet Volume 12.7 fL (9.5-12.2); Monocytes # (A) 0.99 X 10*3/uL (0.20-1.00); Monocytes % (A) 17.4 %; Neutrophils # (A) 3.32 X 10*3/uL (1.80-7.70); Neutrophils % (A) 58.6 %; Platelet Count 59 X 10*3/uL (140-440); RBC 2.98 X 10*6/uL (4.40-5.60); RDW 15.9 % (11.5-14.5); WBC 5.68 X 10*3/uL (4.50-10.00)
[2021-07-13 14:45] VITALS: BP 135/69; PULSE 85; RESP 18
[2021-07-13 16:30] LABS: INR 2.1 (<1.2); Prothrombin Time 20.9 sec (9.0-12.0)
== END 2021-07-13 18:27 | disposition home or self-care (01) | DRG 433 ==
LOC: EC 09:19 → 4SSUR 11:18
PROVIDERS: ADMIT Family Medicine; ATTEND Family Medicine
DX: K70.31 Alcoholic cirrhosis of liver with ascites (principal); F10.239 Alcohol dependence with withdrawal, unspecified; J90 Pleural effusion, not elsewhere classified; F10.229 Alcohol dependence with intoxication, unspecified; D64.9 Anemia, unspecified; D69.6 Thrombocytopenia, unspecified; I10 Essential (primary) hypertension; K70.40 Alcoholic hepatic failure without coma; N50.89 Other specified disorders of the male genital organs; Z82.49 Family history of ischemic heart disease and other diseases of the circulatory system; L40.9 Psoriasis, unspecified; Z20.822 Contact with and (suspected) exposure to COVID-19
CPT/HCPCS: 36415; 71046; 71250; 74150; 76700; 76705; 80053; 80074; 80320; 81001; 82140; 82150; 83690; 83735; 83880; 84484; 85025; 85049; 85610; 87635; 93005; 99285

== ENCOUNTER 2021-07-27 10:28 | Inpatient (IN) | payer OTHER ==
--- NOTE | 2021-07-27 12:31 | ED ---
General Adult HPI - General Chief complaint: Extremity Problem,Nontraumatic Stated complaint: Edema Time Seen by Provider: 07/27/21 12:00 Source: patient, family, RN notes reviewed Mode of arrival: ambulatory Limitations: no limitations - History of Present Illness Initial comments: Patient is a pleasant 56-year-old male presenting to the emergency Department with increased generalized edema. Patient was in the hospital 2 weeks ago with similar problems. Symptoms have worsened since that. Patient has not been active. Patient has edema of his abdomen scrotum and legs. Patient has noticed a jaundice discoloration of the skin. A ram was recently diagnosed with alcoholic cirrhosis. Patient states he septic and alcohol 17 days ago. - Related Data Home Medications Medication Instructions Recorded Confirmed Multivitamins, Thera [Multivitamin 1 tab PO DAILY 07/10/21 07/10/21 (formulary)] Previous Rx's Medication Instructions Recorded Furosemide [Lasix] 20 mg PO DAILY 90 Days #90 tab 07/13/21 Thiamine [Vitamin B-1] 100 mg PO BID-W/MEALS 30 Days #60 07/13/21 tab cloNIDine HCL [Catapres] 0.1 mg PO TID 30 Days #90 tab 07/13/21 Allergies Allergy/AdvReac Type Severity Reaction Status Date / Time No Known Allergies Allergy Verified 07/27/21 10:47 Review of Systems ROS Statement: Those systems with pertinent positive or pertinent negative responses have been documented in the HPI. ROS Other: All systems not noted in ROS Statement are negative. Constitutional: Denies: fever Eyes: Denies: eye pain ENT: Denies: ear pain Respiratory: Denies: cough Cardiovascular: Denies: chest pain Endocrine: Denies: fatigue Gastrointestinal: Denies: abdominal pain Genitourinary: Reports: as per HPI. Denies: urgency Musculoskeletal: Denies: back pain Skin: Reports: as per HPI Neurological: Denies: weakness Past Medical History Past Medical History: Skin Disorder Additional Past Medical History / Comment(s): RECENT ABSCESS TO LOWER INTESTINES- WAS ON ANTIBIOTICS-RESOLVED AT THIS TIME, psoriasis history. History of Any Multi-Drug Resistant Organisms: None Reported Past Surgical History: No Surgical Hx Reported Past Anesthesia/Blood Transfusion Reactions: No Reported Reaction Past Psychological History: No Psychological Hx Reported Smoking Status: Never smoker Past Alcohol Use History: Daily Past Drug Use History: Marijuana - Past Family History Mother Family Medical History: No Reported History General Exam Limitations: no limitations General appearance: alert, in no apparent distress Head exam: Present: atraumatic Eye exam: Present: scleral icterus Neck exam: Present: normal inspection Respiratory exam: Present: normal lung sounds bilaterally Cardiovascular Exam: Present: regular rate, normal rhythm GI/Abdominal exam: Present: other (Ascites). Absent: tenderness, pulsatile mass Extremities exam: Present: pedal edema. Absent: calf tenderness Neurological exam: Present: alert Psychiatric exam: Present: normal affect, normal mood Skin exam: Present: other (Jaundice) Course Vital Signs 07/27/21 07/27/21 10:40 13:13 Temperature 97.4 F L Pulse Rate 84 74 Respiratory 18 18 Rate Blood Pressure 126/73 O2 Sat by Pulse 99 99 Oximetry Medical Decision Making - Lab Data Result diagrams: 07/27/21 12:33 07/27/21 12:33 Lab Results 07/27/21 07/27/21 07/27/21 Range/Units 12:33 12:33 12:33 WBC 8.5 (3.8-10.6) k/uL RBC 3.43 L (4.30-5.90) m/uL Hgb 12.4 L (13.0-17.5) gm/dL Hct 38.5 L (39.0-53.0) % MCV 112.3 H (80.0-100.0) fL MCH 36.1 H (25.0-35.0) pg MCHC 32.2 (31.0-37.0) g/dL RDW 14.8 (11.5-15.5) % MPV 11.3 Macrocytosis Marked A PT 19.5 H (9.0-12.0) sec INR 1.9 H (<1.2) APTT 31.8 H (22.0-30.0) sec Sodium (137-145) mmol/L Potassium (3.5-5.1) mmol/L Chloride (98-107) mmol/L Carbon Dioxide (22-30) mmol/L Anion Gap mmol/L BUN (9-20) mg/dL Creatinine (0.66-1.25) mg/dL Est GFR (CKD-EPI)AfAm (>60 ml/min/1.73 sqM) Est GFR (CKD-EPI)NonAf (>60 ml/min/1.73 sqM) Glucose (74-99) mg/dL Calcium (8.4-10.2) mg/dL Total Bilirubin (0.2-1.3) mg/dL AST (17-59) U/L ALT (4-49) U/L Alkaline Phosphatase (38-126) U/L Total Protein (6.3-8.2) g/dL Albumin (3.5-5.0) g/dL Amylase (30-110) U/L Lipase (23-300) U/L Urine Color Yellow Urine Appearance Clear (Clear) Urine pH 7.0 (5.0-8.0) Ur Specific Cutler 1.007 (1.001-1.035) Urine Protein Negative (Negative) Urine Glucose (UA) Negative (Negative) Urine Ketones Negative (Negative) Urine Blood Negative (Negative) Urine Nitrite Negative (Negative) Urine Bilirubin 1+ H (Negative) Urine Urobilinogen 3.0 (<2.0) mg/dL Ur Leukocyte Esterase Negative (Negative) 07/27/21 Range/Units 12:33 WBC (3.8-10.6) k/uL RBC (4.30-5.90) m/uL Hgb (13.0-17.5) gm/dL Hct (39.0-53.0) % MCV (80.0-100.0) fL MCH (25.0-35.0) pg MCHC (31.0-37.0) g/dL RDW (11.5-15.5) % MPV Macrocytosis PT (9.0-12.0) sec INR (<1.2) APTT (22.0-30.0) sec Sodium 131 L (137-145) mmol/L Potassium 4.5 (3.5-5.1) mmol/L Chloride 101 (98-107) mmol/L Carbon Dioxide 21 L (22-30) mmol/L Anion Gap 9 mmol/L BUN 14 (9-20) mg/dL Creatinine 0.66 (0.66-1.25) mg/dL Est GFR (CKD-EPI)AfAm >90 (>60 ml/min/1.73 sqM) Est GFR (CKD-EPI)NonAf >90 (>60 ml/min/1.73 sqM) Glucose 106 H (74-99) mg/dL Calcium 8.2 L (8.4-10.2) mg/dL Total Bilirubin 12.4 H (0.2-1.3) mg/dL AST 114 H (17-59) U/L ALT 74 H (4-49) U/L Alkaline Phosphatase 360 H (38-126) U/L Total Protein 6.9 (6.3-8.2) g/dL Albumin 2.4 L (3.5-5.0) g/dL Amylase 37 (30-110) U/L Lipase 111 (23-300) U/L Urine Color Urine Appearance (Clear) Urine pH (5.0-8.0) Ur Specific Cutler (1.001-1.035) Urine Protein (Negative) Urine Glucose (UA) (Negative) Urine Ketones (Negative) Urine Blood (Negative) Urine Nitrite (Negative) Urine Bilirubin (Negative) Urine Urobilinogen (<2.0) mg/dL Ur Leukocyte Esterase (Negative) Disposition Clinical Impression: Anasarca, Cirrhosis, Ascites Disposition: ADMITTED IP TO THIS HOSP Is patient prescribed a controlled substance at d/c from ED?: No Referrals: Rey Shell MD [Primary Care Provider] - 1-2 days Decision Time: 13:30
[2021-07-27 12:42] LABS: Appearance,Urine Clear (Clear); Bilirubin,Urine 1+ (Negative); Blood,Urine Negative (Negative); Color,Urine Yellow; Glucose,Urine (UA) Negative (Negative); Ketones,Urine Negative (Negative); Leukocyte Esterase,Urine Negative (Negative); Nitrite,Urine Negative (Negative); Protein,Urine Negative (Negative); Specific Gravity,Urine 1.007 (1.001-1.035)
[2021-07-27 12:43] LABS: HCT 38.5 % (39.0-53.0); HGB 12.4 gm/dL (13.0-17.5); MCH 36.1 pg (25.0-35.0); MCHC 32.2 g/dL (31.0-37.0); MCV 112.3 fL (80.0-100.0); Macrocytosis Marked; Mean Platelet Volume 11.3; RBC 3.43 m/uL (4.30-5.90); RDW 14.8 % (11.5-15.5); WBC 8.5 k/uL (3.8-10.6)
[2021-07-27 12:54] LABS: ALT 74 U/L (4-49); AST 114 U/L (17-59); African American GFR (CKD) >90 (>60 ml/min/1.73 sqM); Albumin 2.4 g/dL (3.5-5.0); Alkaline Phosphatase 360 U/L (38-126); Amylase 37 U/L (30-110); Anion Gap 9 mmol/L; Blood Urea Nitrogen 14 mg/dL (9-20); Calcium 8.2 mg/dL (8.4-10.2); Carbon Dioxide 21 mmol/L (22-30); Chloride 101 mmol/L (98-107); Glucose 106 mg/dL (74-99); Lipase 111 U/L (23-300); Non-African American GFR(CKD) >90 (>60 ml/min/1.73 sqM); Potassium 4.5 mmol/L (3.5-5.1); Sodium 131 mmol/L (137-145); Total Bilirubin 12.4 mg/dL (0.2-1.3); Total Protein 6.9 g/dL (6.3-8.2)
--- NOTE | 2021-07-27 13:03 | XR ---
EXAMINATION TYPE: XR KUB DATE OF EXAM: 07/27/2021 COMPARISON: NONE HISTORY: Pain TECHNIQUE: Single supine KUB image of the abdomen is obtained FINDINGS: Small bowel demonstrates no evidence for dilatation or air fluid levels. Gas and fecal material is seen in non-distended colon. No convincing evidence for pneumoperitoneum. No unusual calcifications. The lung bases are clear. The osseous structures are intact. IMPRESSION: 1. Overall nonobstructive bowel gas pattern.
[2021-07-27 13:14] LABS: INR 1.9 (<1.2); Partial Thromboplastin Time 31.8 sec (22.0-30.0); Prothrombin Time 19.5 sec (9.0-12.0)
[2021-07-27] MEDS ORDERED: NALOXONE 0.4 MG/ML 1 ML VIAL IV PRN (13:34)
[2021-07-27 13:48] LABS: Eosinophils # (M) 0.34 k/uL (0-0.7); Lymphocytes # (M) 0.34 k/uL (1.0-4.8); Monocytes # (M) 1.19 k/uL (0-1.0); Neutrophils # (M) 6.63 k/uL (1.3-7.7); Neutrophils % (M) 78 %; Nucleated Red Blood Cells 0 /100 WBC (0-0); Total Cells Counted 100
[2021-07-27 13:50] LABS: Platelet Count 65 k/uL (150-450)
--- NOTE | 2021-07-27 18:34 | HP ---
HISTORY AND PHYSICAL This 56-year-old white male came to the emergency room with generalized edema, similar problems 2 weeks ago. He was admitted and placed on IV diuretics elevated bilirubin and possible cirrhosis, noticed jaundice discoloration in the skin that worsened since he went home. Patient states he feels he is septic or possibly in liver failure with worsening. He says he took alcohol 17 days ago. Home medicines are multivitamins, Lasix 20 mg daily, multivitamin with thiamine 100 b.i.d., Catapres 0.1 t.i.d. Fourteen-point review of systems negative except for generalized edema, scleral icterus. ALLERGIES NEGATIVE. Past medical history: Daily alcohol. He does not smoke. Does do marijuana. Temperature 97.4, pulse 74 to 84 respiratory rate 16 to 18, blood pressure over 120s over 70s, O2 99%. GI ascites, 2 to 3+ edema. Abdomen is distended. Psych fair mood and affect. Cardiovascular S1-S2. Lungs clear. GI soft, as mentioned above. Pupils equal, round, reactive. ENT with scleral icterus. Sodium 131, potassium 4.5, BUN is 14, creatinine 0.66. INR is 1.9, hemoglobin is 12.4. Liver enzymes are elevated. GFR is over 90. AST 114, ALT 74, alkaline phosphatase 360, total bilirubin 12.4. ASSESSMENT: 1. Anasarca. 2. Cirrhosis. 3. Ascites. Admit. Get GI consult for elevated bilirubin. Continue with diuresis. Prognosis guarded. WA protocol if necessary. Hypertension control with Catapres. MMODL / IJN: [id number] /
[2021-07-27] MEDS: FUROSEMIDE 10 MG/ML 2 ML VIAL IV SCH (20:26)
[2021-07-27] MEDS: SODIUM CHLORIDE 0.9% 1,000 ML IV SCH (20:26)
[2021-07-27] MEDS: SPIRONOLACTONE 25 MG TAB PO SCH (21:31)
[2021-07-27] MEDS: cloNIDine HCL 0.2 MG TAB PO SCH (21:31)
[2021-07-28] MEDS: FUROSEMIDE 10 MG/ML 2 ML VIAL IV SCH (09:12)
[2021-07-28] MEDS: PANTOPRAZOLE 40 MG/10 ML VIAL IV SCH (09:13)
[2021-07-28] MEDS: THIAMINE 100 MG TAB PO SCH ×2 (09:14→16:29)
[2021-07-28] MEDS: SPIRONOLACTONE 25 MG TAB PO SCH (09:14)
[2021-07-28] MEDS: MULTIVITAMINS, THERA 1 EACH TAB PO SCH (09:14)
[2021-07-28] MEDS: cloNIDine HCL 0.2 MG TAB PO SCH ×3 (09:14→21:00)
--- NOTE | 2021-07-28 11:17 | US ---
EXAMINATION TYPE: US liver DATE OF EXAM: 07/28/2021 COMPARISON: US 07/13/21 CLINICAL HISTORY: 56-year-old male hyperbilirubinemia, cirrhosis, assess for ascites. Hx of cirrhosis and ascites. TECHNIQUE: Multiple sonographic right upper quadrant are obtained. FINDINGS: EXAM MEASUREMENTS: Liver Length: 15.4 cm CBD: 0.53 cm Right Kidney: 11.1 x 5.4 x 5.9 cm Pancreas: Obscured by bowel gas Liver: Nodular hepatic contour. Mild to moderate perihepatic ascites. No focal lesion identified. Gallbladder: Not seen due to anasarca and presence of ascites Evidence for sonographic Abernathy's sign: no CBD: portions visualized appear wnl Right Kidney: No hydronephrosis or evident masses seen Medical Research Assistant notes: Mild abdominal ascites noted within the other 3 quadrants. IMPRESSION: 1. Cirrhotic morphology of the liver. No focal lesion identified by ultrasound. 2. Gallbladder could not be visualized due to anasarca and perihepatic ascites. 3. No biliary ductal dilatation. 4. Mild to moderate perihepatic ascites. Mild overall abdominal ascites elsewhere in the abdomen.
--- NOTE | 2021-07-28 12:30 | P.CONS ---
History of Present Illness - Reason for Consult Consult date: 07/28/21 Cirrhosis of the liver Requesting physician: Rey Shell - Chief Complaint Generalized edema - History of Present Illness This 56-year-old male who presented to the emergency department yesterday with complaints of increased swelling in his lower extremities, scrotum and abdomen. Patient was here approximately 2 weeks ago with similar complaints. He was noted at that time to be jaundiced. Patient states he has a history of alcohol abuse and drinks up to 5-6 beers a day for at least the last 5-6 years. He denied any previous history of liver disease disease prior to his last admission. At that time he was started on Aldactone 50 mg 3 times a day and Lasix 20 mg daily. Patient states he had been taking this medication but still had swelling. He states he has not had any alcohol since his last admission. During his recent admission on 07/11/2021 he had a chest and abdomen CT he did however have a ultrasound of the abdomen that showed only a small amount of ascites therefore no paracentesis was not completed. Patient does state that his father of cirrhosis of the liver from alcoholism. Admitting labs WBC 8.5 hemoglobin 12.4 hematocrit 38.5 platelet count 65,000 INR 1.9 total bilirubin 12.4 AST of 114 ALT 74 alkaline phosphatase 360 amylase 37 lipase 111 Review of Systems REVIEW OF SYSTEMS: CARDIOPULMONARY: No chest pain or shortness of breath. Bilateral lower extremity swelling. Gastrointestinal: No abdominal pain. No nausea or vomiting. No hematemesis, coffee-ground emesis. No rectal bleeding, or melena. GENITOURINARY: No dysuria or hematuria. Scrotal swelling. MUSCULOSKELETAL: Reports normal range of motion. SKIN: No rashes. No jaundice. ENDOCRINE: No chills, fevers. No excessive weight gain or loss. No polydipsia or polyuria. PSYCHIATRIC: Unremarkable. NEUROLOGY: No change in mental status. Denies dizziness, headache. ENT: Vision unremarkable. CONSTITUTIONAL: No recent weight loss. No fever, chills, night sweats. Past Medical History Past Medical History: Liver Disease, Skin Disorder Additional Past Medical History / Comment(s): RECENT ABSCESS TO LOWER INTESTINES- WAS ON ANTIBIOTICS-RESOLVED AT THIS TIME, psoriasis history. cirrhosis, ascites History of Any Multi-Drug Resistant Organisms: None Reported Past Surgical History: No Surgical Hx Reported, Orthopedic Surgery Past Anesthesia/Blood Transfusion Reactions: No Reported Reaction Past Psychological History: No Psychological Hx Reported Smoking Status: Never smoker Past Alcohol Use History: Daily Past Drug Use History: Marijuana Additional Drug Use History / Comment(s): SMOKES 1-2 TIMES WEEKLY - Past Family History Mother Family Medical History: No Reported History Medications and Allergies Home Medications Medication Instructions Recorded Confirmed Type Multivitamins, Thera [Multivitamin 1 tab PO DAILY 07/10/21 07/27/21 History (formulary)] Furosemide [Lasix] 20 mg PO DAILY 90 Days #90 tab 07/13/21 07/27/21 Rx Thiamine [Vitamin B-1] 100 mg PO BID-W/MEALS 30 Days #60 07/13/21 07/27/21 Rx tab cloNIDine HCL [Catapres] 0.1 mg PO TID 30 Days #90 tab 07/13/21 07/27/21 Rx Spironolactone [Aldactone] 50 mg PO TID 07/27/21 07/27/21 History cloNIDine HCL [Catapres] 0.2 mg PO TID 07/27/21 07/27/21 History Allergies Allergy/AdvReac Type Severity Reaction Status Date / Time No Known Allergies Allergy Verified 07/27/21 13:34 Physical Exam Vitals: Vital Signs Temp Pulse Pulse Resp BP BP Pulse Ox 07/28/21 04:40 98.1 F 77 20 130/67 95 07/27/21 20:30 97.9 F 87 20 138/62 100 07/27/21 20:09 88 16 130/77 97 07/27/21 15:03 75 18 133/68 100 07/27/21 13:13 74 18 99 07/27/21 10:40 97.4 F L 84 18 126/73 99 Intake and Output 07/27/21 07/28/21 07/28/21 22:59 06:59 14:59 Intake Total 1000 Balance 1000 Intake: Intake, IV Titration 400 Amount Sodium Chloride 0.9% 1, 400 000 ml @ 50 mls/hr IV . Q20H FOREIGN Rx#:[id number] Oral 600 Other: Voiding Method Toilet Urinal # Voids 1 Weight 107.955 kg General appearance: The patient is alert, oriented, appears in no acute dist ress. HET: Head is normocephalic and atraumatic. Conjunctiva pink. Sclera icteric. Neck: Supple without lymphadenopathy. Trachea midline. Heart: S1 S2. Regular rate and rhythm. Lungs: Clear to auscultation. Abdomen: Soft, obese, nontender, generalized anasarca,, nondistended with bowel sounds. No guarding or rigidity. Skin: No rashes. Jaundice. Extremities: Normal skin color and turgor. Bilateral lower extremity +2 pitting edema Neurological: No focal deficits. Alert and oriented x3. Results CBC & Chem 7: 07/28/21 12:57 07/28/21 13:30 Labs: Abnormal Lab Results - Last 24 Hours (Table) 07/27/21 07/27/21 07/27/21 Range/Units 12:33 12:33 12:33 RBC 3.43 L (4.30-5.90) m/uL Hgb 12.4 L (13.0-17.5) gm/dL Hct 38.5 L (39.0-53.0) % MCV 112.3 H (80.0-100.0) fL MCH 36.1 H (25.0-35.0) pg Plt Count 65 L (150-450) k/uL Lymphocytes # (Manual) 0.34 L (1.0-4.8) k/uL Monocytes # (Manual) 1.19 H (0-1.0) k/uL Macrocytosis Marked A PT 19.5 H (9.0-12.0) sec INR 1.9 H (<1.2) APTT 31.8 H (22.0-30.0) sec Sodium (137-145) mmol/L Carbon Dioxide (22-30) mmol/L Glucose (74-99) mg/dL Calcium (8.4-10.2) mg/dL Total Bilirubin (0.2-1.3) mg/dL AST (17-59) U/L ALT (4-49) U/L Alkaline Phosphatase (38-126) U/L Albumin (3.5-5.0) g/dL Urine Bilirubin 1+ H (Negative) 07/27/21 Range/Units 12:33 RBC (4.30-5.90) m/uL Hgb (13.0-17.5) gm/dL Hct (39.0-53.0) % MCV (80.0-100.0) fL MCH (25.0-35.0) pg Plt Count (150-450) k/uL Lymphocytes # (Manual) (1.0-4.8) k/uL Monocytes # (Manual) (0-1.0) k/uL Macrocytosis PT (9.0-12.0) sec INR (<1.2) APTT (22.0-30.0) sec Sodium 131 L (137-145) mmol/L Carbon Dioxide 21 L (22-30) mmol/L Glucose 106 H (74-99) mg/dL Calcium 8.2 L (8.4-10.2) mg/dL Total Bilirubin 12.4 H (0.2-1.3) mg/dL AST 114 H (17-59) U/L ALT 74 H (4-49) U/L Alkaline Phosphatase 360 H (38-126) U/L Albumin 2.4 L (3.5-5.0) g/dL Urine Bilirubin (Negative) Abdominal x-ray: report reviewed (Overall nonobstructive bowel gas pattern) US - abdomen: report reviewed (Cirrhotic morphology of the liver. No focal lesion identified by ultrasound. Gallbladder could not be visualized due to anasarca and perihepatic ascites. No biliary ductal dilation. Mild to moderate perihepatic ascites. Mild overall abdominal situs elsewhere in the abdomen.) Assessment and Plan (1) Alcoholic cirrhosis of liver with ascites Narrative/Plan: A 6-year-old male who presented to the emergency department with complaints of continued lower extremity edema. Patient was admitted to the hospital approximately 2 weeks ago for same complaints. Has a long-standing history of alcohol abuse. Patient during his last hospitalization was diagnosed with alcoholic cirrhosis of the liver and was noted to have some ascites. At that time he had generalized anasarca as well and was started on Lasix and Aldactone. Patient continued to have swelling and presented back to the emergency department. He had a CT of the abdomen and pelvis during his last admission that showed moderate amount of ascites and cirrhotic appearing liver. However his ultrasound did not show significant amount of ascites and no paracentesis was completed. On this admission patient was noted to have significant elevation in his LFTs including a total bilirubin of 12.4 AST 114 ALT. During h is last hospitalization his max total bilirubin was 9.6. Patient states he has not had any alcohol since his last admission. Will order repeat liver ultrasound and evaluate for ascites. Consider paracentesis with fluid studies. Current Visit: Yes Status: Acute Code(s): K70.31 - ALCOHOLIC CIRRHOSIS OF LIVER WITH ASCITES SNOMED Code(s): 592488862 (2) Alcohol abuse Current Visit: Yes Status: Acute Code(s): F10.10 - ALCOHOL ABUSE, UNCOMPLICATED SNOMED Code(s): 27616656 Plan: 1. Continue symptomatic and supportive care 2. Low-sodium diet, this was discussed with patient to avoid foods high in sodium stay away from processed foods. 3. Ultrasound of the liver ordered 4. Recommend paracentesis with fluid studies 5. Continue alcohol abstinence 6. Increase Lasix to 40 mg twice a day, change Aldactone to 100 mg daily Thank you for this consultation, we will continue to follow. Dr. Hermes Tucker I agree with the dictator's note, documented as a scribe by Yasmin Amado.
[2021-07-28 13:35] LABS: HCT 34.1 % (39.0-53.0); MCH 36.9 pg (25.0-35.0); MCHC 32.3 g/dL (31.0-37.0); MCV 114.2 fL (80.0-100.0); Macrocytosis Marked; Mean Platelet Volume 11.5; RBC 2.99 m/uL (4.30-5.90); RDW 14.8 % (11.5-15.5); WBC 7.3 k/uL (3.8-10.6)
[2021-07-28 13:41] LABS: Platelet Count 70 k/uL (150-450)
[2021-07-28 14:00] LABS: ALT 67 U/L (4-49); AST 106 U/L (17-59); African American GFR (CKD) >90 (>60 ml/min/1.73 sqM); Albumin 2.1 g/dL (3.5-5.0); Albumin/Globulin Ratio 0.5; Alkaline Phosphatase 257 U/L (38-126); Anion Gap 3 mmol/L; Blood Urea Nitrogen 14 mg/dL (9-20); Calcium 8.2 mg/dL (8.4-10.2); Carbon Dioxide 26 mmol/L (22-30); Chloride 103 mmol/L (98-107); Glucose 102 mg/dL (74-99); Non-African American GFR(CKD) >90 (>60 ml/min/1.73 sqM); Potassium 4.6 mmol/L (3.5-5.1); Sodium 132 mmol/L (137-145); Total Bilirubin 12.7 mg/dL (0.2-1.3); Total Protein 6.1 g/dL (6.3-8.2)
[2021-07-28] MEDS: SODIUM CHLORIDE 0.9% 1,000 ML IV SCH (16:35)
[2021-07-28] MEDS ORDERED: PHYTONADIONE 5 MG in SODIUM CHLORIDE 0.9% 50 ML IVPB STA (16:49)
--- NOTE | 2021-07-28 17:03 | PN ---
PROGRESS NOTE This 56-year-old white male came in for severe swelling in his abdomen, scrotum and lower extremities with severe jaundice. He has a longstanding history of beers, 5 to 6 a day for the last 5 or 6 years. Started on Lasix, Aldactone. Swelling got worse. No alcohol since his last admission. They did no paracentesis on last admission. His father of cirrhosis of the liver from alcoholism. He had hepatitis C. All hepatitis is negative. PHYSICAL EXAM: Cardiovascular S1, S2. Lungs clear. Abdomen is distended. Positive ascitic wave. Left scrotal edema. Three plus edema in the lower extremities, entire legs. Psych fair mood and affect. LABS: Reviewed. Sodium 132, potassium 4.6, hemoglobin is 11, white count 7.3. Ultrasound of the abdomen ascites, anasarca, mild to moderate perihepatic ascites. ASSESSMENT: Alcoholic cirrhosis of the liver with ascites. Readmitted despite Lasix and Aldactone. His ALT is 114, AST is 12.4. Total bilirubin last admission was 9.9; now it is up to 12.3. Consider paracentesis. Alcohol abuse; has not drunk in 3 weeks. Low-sodium diet. Ultrasound of the liver. Paracentesis. Alcohol abstinence. Increase Lasix to 40 b.i.d., aldactone to 100 t.i.d. Prognosis is guarded. MMODL / IJN: [id number] /
[2021-07-28 17:38] LABS: Prothrombin Time 19.9 sec (9.0-12.0)
[2021-07-28] MEDS: FUROSEMIDE 10 MG/ML 4 ML VIAL IV SCH (20:35)
[2021-07-29 05:52] LABS: MCH 37.4 pg (25.0-35.0); MCHC 33.2 g/dL (31.0-37.0); MCV 112.7 fL (80.0-100.0); Macrocytosis Marked; Mean Platelet Volume 10.7; RBC 2.93 m/uL (4.30-5.90); RDW 14.2 % (11.5-15.5); WBC 6.1 k/uL (3.8-10.6)
[2021-07-29 05:56] LABS: Platelet Count 59 k/uL (150-450)
[2021-07-29 06:00] LABS: INR 2.1 (<1.2); Prothrombin Time 21.2 sec (9.0-12.0)
[2021-07-29 06:11] LABS: Band Neutrophils % 7 %; Lymphocytes # (M) 0.85 k/uL (1.0-4.8); Monocytes # (M) 0.43 k/uL (0-1.0); Nucleated Red Blood Cells 0 /100 WBC (0-0)
[2021-07-29 06:12] LABS: Eosinophils # (M) 0.73 k/uL (0-0.7); Neutrophils % (M) 60 %; Total Cells Counted 101
[2021-07-29 06:13] LABS: Anisocytosis (M) Present; Poikilocytosis (M) Present
[2021-07-29 06:27] LABS: ALT 69 U/L (4-49); AST 101 U/L (17-59); African American GFR (CKD) >90 (>60 ml/min/1.73 sqM); Albumin 1.9 g/dL (3.5-5.0); Albumin/Globulin Ratio 0.5; Alkaline Phosphatase 234 U/L (38-126); Anion Gap 0 mmol/L; Blood Urea Nitrogen 14 mg/dL (9-20); Calcium 8.1 mg/dL (8.4-10.2); Carbon Dioxide 29 mmol/L (22-30); Chloride 103 mmol/L (98-107); Globulin 3.9 g/dL; Glucose 96 mg/dL (74-99); Non-African American GFR(CKD) >90 (>60 ml/min/1.73 sqM); Potassium 4.3 mmol/L (3.5-5.1); Sodium 132 mmol/L (137-145); Total Bilirubin 10.5 mg/dL (0.2-1.3); Total Protein 5.8 g/dL (6.3-8.2)
[2021-07-29] MEDS: FUROSEMIDE 10 MG/ML 4 ML VIAL IV SCH ×2 (09:00→22:40)
[2021-07-29] MEDS: PANTOPRAZOLE 40 MG/10 ML VIAL IV SCH (09:00)
[2021-07-29] MEDS: SPIRONOLACTONE 25 MG TAB PO SCH (09:00)
[2021-07-29] MEDS: THIAMINE 100 MG TAB PO SCH ×2 (09:00→16:43)
[2021-07-29] MEDS: MULTIVITAMINS, THERA 1 EACH TAB PO SCH (09:00)
[2021-07-29] MEDS: cloNIDine HCL 0.2 MG TAB PO SCH (09:01)
[2021-07-29] MEDS: LORazepam 2 MG/ML INJ IV PRN ×2 (10:46→14:50)
[2021-07-29 11:26] LABS: Glucose,Whole Blood 99 mg/dL (75-99)
--- NOTE | 2021-07-29 15:17 | P.PN ---
Subjective Progress Note Date: 07/29/21 56-year-old male who came into the emergency department with complaints of generalized anasarca increased swelling in the lower extremities as well as the scrotum. He was recently hospitalized a couple weeks ago diagnosed with cirrhosis of the liver. Has a history of alcoholism and states that he quit d rinking approximately 15 days ago. He has been heavy drinker for many years without any known diagnosis of cirrhosis of the liver until last admission. During his last admission he was started on some low-dose diuretics. Today he is seen and examined with some improvement in his LFTs. He has also had some minimal improvement in his swelling in his lower extremities. He states scrotum is still quite swollen. He is having the shakes today but again denies having any alcohol in the last 15 days. Yesterday tried to consider having paracentesis done however there was limited fluid. Objective - Vital Signs Vital signs: Vital Signs Temp 98.0 F 07/29/21 05:06 Pulse 70 07/29/21 09:02 Resp 18 07/29/21 05:06 BP 126/69 07/29/21 09:02 Pulse Ox 99 07/29/21 09:02 Intake & Output 07/28/21 07/29/21 07/29/21 18:59 06:59 18:59 Intake Total 850 Balance 850 Intake: Intake, IV Titration 50 Amount Phytonadione 5 mg In 50 Sodium Chloride 0.9% 50 ml @ 100 mls/hr IVPB [facility] Rx#:[id number] Oral 800 Other: Voiding Method Toilet Toilet Toilet Urinal Urinal Urinal # Voids 4 6 - Exam General appearance: The patient is alert, oriented, appears in no acute distress. HET: Head is normocephalic and atraumatic. Conjunctiva pink. Sclera icteric. Neck: Supple without lymphadenopathy. Abdomen: Soft, generalized anasarca, nontender, nondistended with bowel sounds. No guarding or rigidity. Genitourinary: Scrotal swelling. Extremities: Normal skin color and turgor. Bilateral +2 pedal edema Skin: No rashes, jaundice. Neurological: No focal deficits. Alert and oriented 3. Patient shaky. - Labs CBC & Chem 7: 07/29/21 05:35 07/29/21 05:35 Labs: Abnormal Lab Results - Last 24 Hours (Table) 07/28/21 07/28/21 07/28/21 Range/Units 12:57 13:30 16:52 RBC 2.99 L (4.30-5.90) m/uL Hgb 11.0 L (13.0-17.5) gm/dL Hct 34.1 L (39.0-53.0) % MCV 114.2 H (80.0-100.0) fL MCH 36.9 H (25.0-35.0) pg Plt Count 70 L (150-450) k/uL Lymphocytes # (Manual) (1.0-4.8) k/uL Eosinophils # (Manual) (0-0.7) k/uL Macrocytosis Marked A PT 19.9 H (9.0-12.0) sec INR 2.0 H (<1.2) Sodium 132 L (137-145) mmol/L Glucose 102 H (74-99) mg/dL Calcium 8.2 L (8.4-10.2) mg/dL Total Bilirubin 12.7 H (0.2-1.3) mg/dL AST 106 H (17-59) U/L ALT 67 H (4-49) U/L Alkaline Phosphatase 257 H (38-126) U/L Total Protein 6.1 L (6.3-8.2) g/dL Albumin 2.1 L (3.5-5.0) g/dL 07/29/21 07/29/21 07/29/21 Range/Units 05:35 05:35 05:35 RBC 2.93 L (4.30-5.90) m/uL Hgb 11.0 L (13.0-17.5) gm/dL Hct 33.0 L (39.0-53.0) % MCV 112.7 H (80.0-100.0) fL MCH 37.4 H (25.0-35.0) pg Plt Count 59 L (150-450) k/uL Lymphocytes # (Manual) 0.85 L (1.0-4.8) k/uL Eosinophils # (Manual) 0.73 H (0-0.7) k/uL Macrocytosis Marked A PT 21.2 H (9.0-12.0) sec INR 2.1 H (<1.2) Sodium 132 L (137-145) mmol/L Glucose (74-99) mg/dL Calcium 8.1 L (8.4-10.2) mg/dL Total Bilirubin 10.5 H (0.2-1.3) mg/dL AST 101 H (17-59) U/L ALT 69 H (4-49) U/L Alkaline Phosphatase 234 H (38-126) U/L Total Protein 5.8 L (6.3-8.2) g/dL Albumin 1.9 L (3.5-5.0) g/dL Assessment and Plan (1) Alcoholic cirrhosis of liver with ascites Narrative/Plan: A 6-year-old male who presented to the emergency department with complaints of continued lower extremity edema. Patient was admitted to the hospital approximately 2 weeks ago for same complaints. Has a long-standing history of alcohol abuse. Patient during his last hospitalization was diagnosed with alco holic cirrhosis of the liver and was noted to have some ascites. At that time he had generalized anasarca as well and was started on Lasix and Aldactone. Patient continued to have swelling and presented back to the emergency department. He had a CT of the abdomen and pelvis during his last admission that showed moderate amount of ascites and cirrhotic appearing liver. However his ultrasound did not show significant amount of ascites and no paracentesis was completed. On this admission patient was noted to have significant elevation in his LFTs including a total bilirubin of 12.4 AST 114 ALT. During his last hospitalization his max total bilirubin was 9.6. Patient states he has not had any alcohol since his last admission. Will order repeat liver ultrasound and evaluate for ascites. Consider paracentesis with fluid studies. Current Visit: Yes Status: Acute Code(s): K70.31 - ALCOHOLIC CIRRHOSIS OF LIVER WITH ASCITES SNOMED Code(s): 986780364 (2) Alcohol abuse Current Visit: Yes Status: Acute Code(s): F10.10 - ALCOHOL ABUSE, UNCOMPLICATED SNOMED Code(s): 10864012 Plan: 1. Continue symptomatic and supportive care 2. Low-sodium diet, this was discussed with patient to avoid foods high in sodium stay away from processed foods. 3. Ultrasound of the liver ordered 4. Continue alcohol abstinence 5. Continue Lasix to 40 mg twice a day, change Aldactone to 100 mg daily 6. Daily CBC, CMP Thank you for this consultation, we will continue to follow. Dr. Hermes Tucker I agree with the dictator's note, documented as a scribe by Yasmin Amado.
[2021-07-29] MEDS ORDERED: PHYTONADIONE 10 MG in SODIUM CHLORIDE 0.9% 50 ML IVPB ONE (16:00)
--- NOTE | 2021-07-29 16:10 | PN ---
PROGRESS NOTE 56-year-old white male with a large amount of bright red blood from the rectum today. We are going to get GI back to see her. Doctor consulted for paracentesis. I gave vitamin K to reverse elevated INR 1.9. The scrotum is still greatly swollen. He has not had alcohol in the last 15 days. Temp 98, pulse 70, respiratory 18, blood pressure 120s over 60s, O2 99. He has generalized edema. Cardiovascular S1, S2. Lungs clear. GI soft. : Scrotal swelling. Hematology: Large peripheral anasarca changes. Sodium 132, potassium 4.3, hemoglobin is 11, white count 6.1. BUN and creatinine are normal. ASSESSMENT: 1. Alcohol cirrhosis of the liver with ascites. 2. Gastrointestinal bleed, acute, not sure why. 3. Possibly elevated INR due to alcohol cirrhosis of liver failure. I gave vitamin K yesterday. We have to give more vitamin K. Check INR today. Supportive care, low-sodium diet, oral Lasix, Aldactone. Prognosis guarded. MMODL / IJN: [id number] /
[2021-07-29] MEDS: cloNIDine HCL 0.1 MG TAB PO SCH ×2 (16:43→22:40)
[2021-07-29] MEDS: SODIUM CHLORIDE 0.9% 1,000 ML IV SCH (16:44)
[2021-07-29] MEDS ORDERED: SODIUM CHLORIDE 0.9% 500 ML 500 ML IV ONE (17:44)
[2021-07-29 18:01] LABS: HCT 34.1 % (39.0-53.0); HGB 10.9 gm/dL (13.0-17.5); MCHC 31.9 g/dL (31.0-37.0); MCV 112.8 fL (80.0-100.0); Macrocytosis Marked; Mean Platelet Volume 10.3; RBC 3.02 m/uL (4.30-5.90); RDW 15.1 % (11.5-15.5); WBC 9.3 k/uL (3.8-10.6)
[2021-07-29 18:37] LABS: Band Neutrophils % 16 %; Lymphocytes # (M) 0.19 k/uL (1.0-4.8); Monocytes # (M) 0.47 k/uL (0-1.0); Neutrophils % (M) 77 %; Nucleated Red Blood Cells 0 /100 WBC (0-0); Total Cells Counted 100
[2021-07-29 18:38] LABS: Platelet Count 67 k/uL (150-450)
[2021-07-29 23:30] LABS: Albumin, Fluid Source Paracentesis Fluid; Amylase, Fluid Source Paracentesis Fluid; Amylase,Body Fluid 9 U/L; LDH, Body Fluid Source Paracentesis Fluid; T. Protein, Body Fluid Source Paracentesis Fluid; Total Protein, Body Fluid 522 mg/dL
[2021-07-30 02:00] LABS: Appearance,BF Clear
[2021-07-30] MEDS: SODIUM CHLORIDE 0.9% 1,000 ML IV SCH (05:05)
--- NOTE | 2021-07-30 08:56 | US ---
EXAMINATION TYPE: US paracentesis abd w/image DATE OF EXAM: 07/29/2021 COMPARISON: NONE HISTORY: Ascites. PROCEDURE: Maximal barrier technique was utilized. The skin overlying a suitable pocket of fluid was localized with ultrasound and the overlying skin was prepped and draped. Ultrasound was utilized with sterile technique. Lidocaine was used for local anesthesia and a skin farooq made with a scalpel. Catheter was advanced under direct ultrasound guidance into a suitable pocket of fluid and approximately 1.1 liter s of yellow fluid were removed. Catheter was withdrawn and hemostasis achieved. There is no immedia te complication; the patient is discharged in stable condition. IMPRESSION: STATUS POST ULTRASOUND GUIDED PARACENTESIS FOR PALLIATION OF ASCITES. THIS PROCEDURE WA S PERFORMED BY THE UNDERSIGNED. Specimen sent for laboratory analysis.
[2021-07-30 09:44] LABS: African American GFR (CKD) 49.7 (60.0-200.0); Albumin 1.8 g/dL (3.8-4.9); Albumin/Globulin Ratio 0.67 (1.60-3.17); Anion Gap 16.1 mmol/L (10.00-18.00); BUN/Creat Ratio 12.44 Ratio (12.00-20.00); Blood Urea Nitrogen 21.9 mg/dL (9.0-27.0); Carbon Dioxide 15.3 mmol/L (20.0-27.5); Globulin 2.7 g/dL (1.6-3.3); Non-African American GFR(CKD) 42.9 (60.0-200.0); Potassium 5.8 mmol/L (3.5-5.5); Total Bilirubin 10.4 mg/dL (0.30-1.20); Total Protein 4.5 g/dL (6.2-8.2)
[2021-07-30] MEDS: THIAMINE 100 MG TAB PO SCH ×2 (09:58→16:26)
[2021-07-30] MEDS: PANTOPRAZOLE 40 MG TABLET PO SCH (09:58)
[2021-07-30] MEDS: FUROSEMIDE 10 MG/ML 4 ML VIAL IV SCH (09:58)
[2021-07-30] MEDS: MULTIVITAMINS, THERA 1 EACH TAB PO SCH (09:58)
[2021-07-30] MEDS: cloNIDine HCL 0.1 MG TAB PO SCH (10:14)
[2021-07-30 10:19] LABS: HCT 32.6 % (39.6-50.0); HGB 10.1 g/dL (13.0-17.0); MCH 36.3 pg (27.0-32.0); MCV 117.3 fL (80.0-97.0); Mean Platelet Volume 12.9 fL (9.5-12.2); NRBC Per 100 WBC 0.1 /100 WBCS (0.0-0.0); Platelet Count 57 X 10*3/uL (140-440); RBC 2.78 X 10*6/uL (4.40-5.60); RDW 16.1 % (11.5-14.5); WBC 17.24 X 10*3/uL (4.50-10.00)
[2021-07-30 10:20] LABS: Immature Platelet Fraction 11.3 % (1.1-6.1); Macrocytosis (M) 3+
[2021-07-30 10:46] LABS: INR 2.21 (0.90-1.11); Prothrombin Time 23.4 sec (9.9-11.9)
[2021-07-30] MEDS: LACTULOSE 20 GM/30 ML CUP PO SCH ×3 (12:06→22:17)
[2021-07-30] MEDS: SPIRONOLACTONE 25 MG TAB PO SCH (12:06)
--- NOTE | 2021-07-30 12:42 | P.PN ---
Subjective Progress Note Date: 07/30/21 Principal diagnosis: Cirrhosis 56-year-old male who came into the emergency department with complaints of generalized anasarca increased swelling in the lower extremities as well as the scrotum. He was recently hospitalized a couple weeks ago diagnosed with cirrhosis of the liver. Has a history of alcoholism and states that he quit drinking approximately 15 days ago. He has been heavy drinker for many years without any known diagnosis of cirrhosis of the liver until last admission. During his last admission he was started on some low-dose diuretics. Today he is seen as a follow-up. Nursing stated that he has been somewhat confused and very lethargic throughout the night. He is still very lethargic this morning and sleeping a lot. Yesterday he underwent a paracentesis with 1.1 L of fluid removed. He did have a low-grade temp of 99.9 yesterday and today's labs show increase in WBC to 17.2 hemoglobin is 10.1 platelet count 57,000 INR 2.2, ammonia 46 total bilirubin 10.4 AST 152 ALT 74 alkaline phosphatase 98. Fluid culture and cytology pending. Fluid WBCs 72 protein 522 albumin 0.27 fluid studies consistent with cirrhosis of liver. Patient still has significant edema to his scrotum as well as lower extremities. He was awake and alert and oriented 2. Not quite sure on the year. He did answer questions appropriately. Patient had no further bowel movements, nursing is denying any bleeding. Objective - Vital Signs Vital signs: Vital Signs Temp 98.2 F 07/30/21 03:47 Pulse 102 H 07/30/21 03:47 Resp 18 07/29/21 20:28 BP 100/53 07/30/21 05:06 Pulse Ox 94 L 07/30/21 03:47 Intake & Output 07/29/21 07/30/21 07/30/21 18:59 06:59 18:59 Intake Total 540 600 Output Total 10 Balance 530 600 Intake: Intake, IV Titration 600 Amount Sodium Chloride 0.9% 1, 600 000 ml @ 50 mls/hr IV . Q20H [facility] Rx#:[id number] Oral 540 Output: Stool 10 Other: Voiding Method Toilet Bedside Commode Urinal Diaper # Voids 7 2 # Bowel Movements 2 1 - Exam General appearance: The patient is alert, oriented, appears in no acute distress. HET: Head is normocephalic and atraumatic. Conjunctiva pink. Sclera icteric. Neck: Supple without lymphadenopathy. Abdomen: Soft, generalized anasarca, nontender, nondistended with bowel sounds. No guarding or rigidity. Genitourinary: Scrotal swelling. Extremities: Normal skin color and turgor. Bilateral +2 pedal edema Skin: No rashes, jaundice. Neurological: No focal deficits. Alert and oriented 3. Patient shaky. - Labs CBC & Chem 7: 07/30/21 06:29 07/30/21 06:29 Labs: Abnormal Lab Results - Last 24 Hours (Table) 07/29/21 Range/Units 17:48 RBC 3.02 L (4.30-5.90) m/uL Hgb 10.9 L (13.0-17.5) gm/dL Hct 34.1 L (39.0-53.0) % MCV 112.8 H (80.0-100.0) fL MCH 36.0 H (25.0-35.0) pg Plt Count 67 L (150-450) k/uL Neutrophils # (Manual) 8.60 H (1.3-7.7) k/uL Lymphocytes # (Manual) 0.19 L (1.0-4.8) k/uL Macrocytosis Marked A Microbiology - Last 24 Hours (Table) 07/29/21 16:09 Body Fluid Culture - Preliminary Paracentesis Fluid Assessment and Plan (1) Alcoholic cirrhosis of liver with ascites Narrative/Plan: 56-year-old male who presented to the emergency department with complaints of continued lower extremity edema. Patient was admitted to the hospital approximately 2 weeks ago for same complaints. Has a long-standing history of alcohol abuse. Patient during his last hospitalization was diagnosed with alcoholic cirrhosis of the liver and was noted to have some ascites. At that time he had generalized anasarca as well and was started on Lasix and Aldactone. Patient continued to have swelling and presented back to the emergency department. He had a CT of the abdomen and pelvis during his last admission that showed moderate amount of ascites and cirrhotic appearing liver. However his ultrasound did not show significant amount of ascites and no paracentesis was completed. On this admission patient was noted to have significant elevation in his LFTs including a total bilirubin of 12.4 AST 114 ALT. During his last hospitalization his max total bilirubin was 9.6. Patient states he has not had any alcohol since his last admission. Will order repeat liver ultra sound and evaluate for ascites. Patient underwent paracentesis with 1.1 L of fluid removed. Fluid studies consistent with alcoholic cirrhosis of the liver. Current Visit: Yes Status: Acute Code(s): K70.31 - ALCOHOLIC CIRRHOSIS OF LIVER WITH ASCITES SNOMED Code(s): 724446778 (2) Alcohol abuse Current Visit: Yes Status: Acute Code(s): F10.10 - ALCOHOL ABUSE, UNCOMPLICATED SNOMED Code(s): 50279798 (3) Hyperammonemia Narrative/Plan: Lactulose 30 g 3 times a day, titrate to have 3-4 bowel movements a day. Repeat ammonia level daily. Current Visit: Yes Status: Acute Code(s): E72.20 - DISORDER OF UREA CYCLE METABOLISM, UNSPECIFIED SNOMED Code(s): 3057230 (4) Leukocytosis Narrative/Plan: Patient with low-grade temp yesterday evening and now with elevated white count. Need to consider possible SBP. Will start Rocephin 1 g every 24 hours empirically. Current Visit: Yes Status: Acute Code(s): D72.829 - ELEVATED WHITE BLOOD CELL COUNT, UNSPECIFIED SNOMED Code(s): 008746507 Plan: 1. Continue symptomatic and supportive care 2. Low-sodium diet, this was discussed with patient to avoid foods high in sodium stay away from processed foods. 3. Patient is status post paracentesis with 1.1 L of fluid removal 4. Continue alcohol abstinence 5. Continue Lasix to 40 mg twice a day, Aldactone to 100 mg daily 6. Ammonia level ordered 7. Lactulose 30 g 3 times a day, titrate to have 3-4 bowel movements a day. 8. Rocephin 1 g every 24 hours for possible SBP Thank you for allowing us to participate in the care of the patient, the GI service will sign off, gastroenterology will not be available at the hospital this weekend and through next week. If further evaluation by gastroenterology is required the patient will need transfer as per the primary team's discretion. Dr. Hermes Tucker I agree with the dictator's note, documented as a scribe by Yasmin Amado.
[2021-07-30] MEDS: FUROSEMIDE 100 MG in SODIUM CHLORIDE 0.9% 90 ML IV SCH (12:50)
[2021-07-30] MEDS: PHYTONADIONE ORAL 5 MG/5 ML ORAL.SYRG PO SCH (12:51)
--- NOTE | 2021-07-30 18:31 | P.PN ---
Progress Note - Text Progress Note Date: 07/30/21 Presenting complaint: Distended abdomen Hospital course: 56-year-old male who came into the emergency department with complaints of generalized anasarca increased swelling in the lower extremities as well as the scrotum. He was recently hospitalized a couple weeks ago diagnosed with cirrhosis of the liver. Has a history of alcoholism and states that he quit drinking approximately 15 days ago. He has been heavy drinker for many years without any known diagnosis of cirrhosis of the liver until last admission. During his last admission he was started on some low-dose diuretics. I'm covering this patient for Dr. Rey enciso July 4: Laying in bed. Tired. Abdomen distended. Significant edema. Scrotal edema. Eating 50-65%. Significant fluid overload. We'll start the patient on IV Lasix drip. Fluid restriction 1500 mL. Strict I's and O's. Follow electrolytes. Patient had 1.1 L of ascites fluid removed Review of systems: Was done for constitutional, cardiovascular, GI, pulmonary. relevant finding as above Active Medications Ceftriaxone Sodium 1 gm/ (Sodium Chloride) 50 mls @ 100 mls/hr IVPB Q24HR [facility] Last Admin: 07/30/21 12:06 Dose: 100 mls/hr Documented by: Furosemide 100 mg/ Sodium (Chloride) 100 mls @ 10 mls/hr IV .Q10H [facility] Last Admin: 07/30/21 12:50 Dose: 10 mg/hr, 10 mls/hr Documented by: Lactulose (Lactulose 20 Gm/30 Ml Cup) 30 gm PO TID [facility] Last Admin: 07/30/21 15:38 Dose: 30 gm Documented by: Lorazepam (Lorazepam 2 Mg/Ml Inj) 1 mg IV Q4HR PRN PRN Reason: Anxiety Last Admin: 07/29/21 14:50 Dose: 1 mg Documented by: Metoprolol Tartrate (Metoprolol Tartrate 25 Mg Tab) 25 mg PO BID [facility] Multivitamins (Multivitamins, Thera 1 Each Tab) 1 each PO DAILY [facility] Last Admin: 07/30/21 09:58 Dose: 1 each Documented by: Naloxone HCl (Naloxone 0.4 Mg/Ml 1 Ml Vial) 0.2 mg IV Q2M PRN PRN Reason: Opioid Reversal Pantoprazole Sodium (Pantoprazole 40 Mg Tablet) 40 mg PO AC-BRKFST [facility] Last Admin: 07/30/21 09:58 Dose: 40 mg Documented by: Phytonadione (Phytonadione Oral 5 Mg/5 Ml Oral.Syrg) 10 mg PO DAILY [facility] Last Admin: 07/30/21 12:51 Dose: 10 mg Documented by: Spironolactone (Spironolactone 25 Mg Tab) 100 mg PO DAILY [facility] Last Admin: 07/30/21 12:06 Dose: 100 mg Documented by: Thiamine HCl (Thiamine 100 Mg Tab) 100 mg PO BID-W/MEALS [facility] Last Admin: 07/30/21 16:26 Dose: 100 mg Documented by: On examination: VITAL SIGNS: [98, 106, 18, 119/55, 95% on room air] GENERAL APPEARANCE: BMI 32.3, laying in bed, tired, but lethargic HEENT: Normal external appearance of nose and ear. Oral cavity normal EYES: Pupils equal. Conjunctiva icterus NECK: JVD not raised. Mass not palpable. RESPIRATORY: Respiratory effort increased. Lungs decreased breath sounds. CARDIOVASCULAR: First and second sounds normal. Severe edema ABDOMEN: Soft. Distended. Liver and spleen not palpable. No tenderness. No mass palpable. Dullness to percussion in the flanks PSYCHIATRY: lethargic but able to answer questions . INVESTIGATIONS, reviewed in the clinical context: White count 17.2 hemoglobin 10.1 platelets 57 ProTime 23.4 sodium 132 potassium 5.8 BUN 21.9 creatinine 1.8 total bilirubin 10.4 AST 152 ALT 74 albumin 1.8 ammonia 46 Ultrasound liver: Cirrhosis. Ascites. Assessment and plan: -Alcohol-induced cirrhosis with clinical evidence of portal hypertension Add Lopressor 25 mg twice a day -Hepatorenal syndrome, acute kidney injury Follow labs closely -Severe fluid overload from cirrhosis IV Lasix drip. Strict I's and O's. Fluid restriction 1500 mL. -Essential hypertension DC Catapres. Lopressor 25 mg twice a day -Hepatic encephalopathy Scheduled lactulose -Severe thrombocytopenia from cirrhosis Watch for bleeding -Coagulopathy significant secondary to cirrhosis Vitamin K by mouth 10 daily -Hyperkalemia secondary to Aldactone and kidney injury Cutback Aldactone. Lasix drip. -Macrocytic anemia secondary to cirrhosis and nutritional -Hyponatremia from fluid overload -Severe hyper bilirubinemia Poor prognosis for cirrhosis Patient be started on Lasix drip. Strict I's and O's. 10 mg an hour. Stop Aldactone because of hyperkalemia for now. Follow lites. Lactulose. Roman wraps. Prognosis poor.
[2021-07-30] MEDS ORDERED: METOPROLOL TARTRATE 25 MG TAB PO SCH (21:00)
[2021-07-31] MEDS ORDERED: LORazepam 2 MG/ML INJ IV STA ×2 (00:29→07:21)
[2021-07-31] MEDS: FUROSEMIDE 100 MG in SODIUM CHLORIDE 0.9% 90 ML IV SCH ×3 (03:28→20:04)
[2021-07-31 03:59] LABS: Appearance,Urine Cloudy (Clear); Bacteria,Urine Occasional /hpf; Bilirubin,Urine 2+ (Negative); Blood,Urine Trace (Negative); Cellular Casts,Urine 7 /lpf (0); Color,Urine Dark Orange; Glucose,Urine (UA) Negative (Negative); Granular Casts,Urine 1 /lpf (0); Hyaline Casts,Urine 28 /lpf (0-2); Ketones,Urine Negative (Negative); Leukocyte Esterase,Urine Negative (Negative); Mucus,Urine Rare /hpf; Nitrite,Urine Negative (Negative); Protein,Urine Negative (Negative); RBC,Urine 1 /hpf (0-5); Specific Gravity,Urine 1.015 (1.001-1.035); Squamous Epithelial Cell,Urine 1 /hpf (0-4); Urobilinogen,Urine <2.0 mg/dL (<2.0); WBC,Urine 3 /hpf (0-5)
[2021-07-31] MEDS ORDERED: DEXTROSE 50% SYRINGE 50 ML IVP ONE ×2 (07:10→09:12)
[2021-07-31 07:13] LABS: Glucose,Whole Blood <20 mg/dL (75-99)
[2021-07-31 07:13] LABS: Glucose,Whole Blood <20 mg/dL (75-99)
[2021-07-31] MEDS ORDERED: GLUCAGON 1 MG/ML VIAL ONE (07:13)
[2021-07-31 07:24] LABS: Glucose,Whole Blood 77 mg/dL (75-99)
[2021-07-31 07:26] LABS: ALT 109 U/L (4-49); African American GFR (CKD) 34 (>60 ml/min/1.73 sqM); Albumin/Globulin Ratio 0.6; Anion Gap 13 mmol/L; Blood Urea Nitrogen 35 mg/dL (9-20); Carbon Dioxide 15 mmol/L (22-30); Chloride 104 mmol/L (98-107); Globulin 3.5 g/dL; Non-African American GFR(CKD) 30 (>60 ml/min/1.73 sqM); Sodium 132 mmol/L (137-145); Total Bilirubin 13.3 mg/dL (0.2-1.3); Total Protein 5.5 g/dL (6.3-8.2)
[2021-07-31 07:32] LABS: AST 383 U/L (17-59); Alkaline Phosphatase 56 U/L (38-126); Potassium 6.3 mmol/L (3.5-5.1)
[2021-07-31 07:38] LABS: Glucose <20 mg/dL (74-99)
[2021-07-31 07:47] LABS: Glucose,Whole Blood 86 mg/dL (75-99)
[2021-07-31] MEDS ORDERED: LORazepam 2 MG/ML INJ IV PRN ×3 (07:48)
[2021-07-31] MEDS: PANTOPRAZOLE 40 MG TABLET PO SCH (08:29)
[2021-07-31] MEDS: THIAMINE 100 MG TAB PO SCH ×2 (08:29→20:04)
[2021-07-31 09:21] LABS: Glucose,Whole Blood 57 mg/dL (75-99)
[2021-07-31 09:33] LABS: Glucose,Whole Blood 92 mg/dL (75-99)
[2021-07-31] MEDS ORDERED: NOREPINEPHRIN 4 MG-0.9% NS PMX 4 MG/250 ML ML IV ONE (10:14)
--- NOTE | 2021-07-31 10:35 | P.CNPUL ---
History of Present Illness Consult date: 07/31/21 Chief complaint: hypotension History of present illness: 56-year-old alcoholic came into the emergency with generalized anasarca, increased swelling in lower extremities and his scrotum. He is known to have liver cirrhosis. He has history of alcoholism and quit drinking approximately 2 weeks ago. The patient during the course of his hospitalization, became progressively more lethargic and confused and encephalopathic. He underwent paracentesis yesterday without a total of 1.1 L of fluid was aspirated from his abdomen. This morning, he was in significant for condition and he was transferred to the ICU her the medical team. The patient was on a Lasix drip. The patient was not producing any urine output. He had developed an acute kidney injury. His creatinine was up to 2.38 with a BUN of 35. The patient has developed a mild component of anion gap metabolic acidosis with a serum bicarb of 15 and a potassium level was up to 5.3. He also developed a white cell count of 17.2 with a hemoglobin of 10.1. Upon arrival to the ICU, the patient was 100% nonrebreather facemask. He was a bit agitated, encephalopathic, blood pressure was quite low and immediately H a balloon catheter was inserted, arterial line was inserted and the patient was started on fluids and pressors. Currently norepinephrine is running at 0.3 mcg/kg per minute. He has a Galvez catheter. Urine output at this point in time is minimal. No significant abdominal distention. No fever. He is on empiric antibiotic coverage with IV Rocephin. Meanwhile, his blood work has shown hyperbilirubinemia with a bilirubin of 13.3, AST is 88, ALP is 19 and ultrasound of the liver showed liver cirrhosis. Review of Systems ROS unobtainable: due to mental status Past Medical History Past Medical History: Liver Disease, Skin Disorder Additional Past Medical History / Comment(s): RECENT ABSCESS TO LOWER INTESTINES- WAS ON ANTIBIOTICS-RESOLVED AT THIS TIME, psoriasis history. cirrhosis, ascites History of Any Multi-Drug Resistant Organisms: None Reported Past Surgical History: No Surgical Hx Reported, Orthopedic Surgery Past Anesthesia/Blood Transfusion Reactions: No Reported Reaction Past Psychological History: No Psychological Hx Reported Smoking Status: Never smoker Past Alcohol Use History: Daily Past Drug Use History: Marijuana Additional Drug Use History / Comment(s): SMOKES 1-2 TIMES WEEKLY - Past Family History Mother Family Medical History: No Reported History Medications and Allergies Home Medications Medication Instructions Recorded Confirmed Type Multivitamins, Thera [Multivitamin 1 tab PO DAILY 07/10/21 07/27/21 History (formulary)] Furosemide [Lasix] 20 mg PO DAILY 90 Days #90 tab 07/13/21 07/27/21 Rx Thiamine [Vitamin B-1] 100 mg PO BID-W/MEALS 30 Days #60 07/13/21 07/27/21 Rx tab cloNIDine HCL [Catapres] 0.1 mg PO TID 30 Days #90 tab 07/13/21 07/27/21 Rx Spironolactone [Aldactone] 50 mg PO TID 07/27/21 07/27/21 History cloNIDine HCL [Catapres] 0.2 mg PO TID 07/27/21 07/27/21 History Allergies Allergy/AdvReac Type Severity Reaction Status Date / Time No Known Allergies Allergy Verified 07/27/21 13:34 Physical Exam Vitals: Vital Signs Temp Pulse Resp BP Pulse Ox 07/31/21 08:52 79/45 07/31/21 08:47 75/46 07/31/21 08:11 96 07/31/21 07:47 93 L 07/31/21 07:08 70 75/44 96 07/31/21 05:20 97.0 F L 83 20 83/48 94 L 07/30/21 21:00 97.8 F 120 H 16 116/53 100 07/30/21 16:23 102 H 106/52 07/30/21 11:32 98 F 106 H 18 119/55 95 Intake and Output 07/30/21 07/31/21 07/31/21 22:59 06:59 14:59 Intake Total 100 Balance 100 Intake: Intake, IV Titration 100 Amount Furosemide 100 mg In 100 Sodium Chloride 0.9% 90 ml @ 10 MG/HR 10 mls/hr IV .Q10H [facility] Rx#: [id number] Other: Voiding Method Diaper Indwelling Catheter Incontinent Results - Laboratory Findings CBC and BMP: 07/30/21 06:29 07/31/21 06:45 PT/INR, D-dimer PT 23.4 sec (9.9-11.9) H 07/30/21 06:29 INR 2.21 (0.90-1.11) H 07/30/21 06:29 Abnormal lab findings: Abnormal Labs 07/27/21 07/27/21 07/27/21 12:33 12:33 12:33 WBC RBC 3.43 L Hgb 12.4 L Hct 38.5 L MCV 112.3 H MCH 36.1 H MCHC RDW Plt Count 65 L Plt Count Comment MPV Absolute Nucleated RBC Neutrophils # (Manual) Lymphocytes # (Manual) 0.34 L Monocytes # (Manual) 1.19 H Eosinophils # (Manual) NRBC/100 WBC Diff Immature Plt Fraction Macrocytosis Marked A PT 19.5 H INR 1.9 H APTT 31.8 H Sodium Potassium Carbon Dioxide BUN Creatinine Est GFR (CKD-EPI)AfAm Est GFR (CKD-EPI)NonAf Glucose POC Glucose (mg/dL) Calcium Total Bilirubin AST ALT Alkaline Phosphatase Ammonia Total Protein Albumin Albumin/Globulin Ratio Urine Blood Urine Bilirubin 1+ H Urine Bacteria Hyaline Casts Urine Mucus 07/27/21 07/28/21 07/28/21 12:33 12:57 13:30 WBC RBC 2.99 L Hgb 11.0 L Hct 34.1 L MCV 114.2 H MCH 36.9 H MCHC RDW Plt Count 70 L Plt Count Comment MPV Absolute Nucleated RBC Neutrophils # (Manual) Lymphocytes # (Manual) Monocytes # (Manual) Eosinophils # (Manual) NRBC/100 WBC Diff Immature Plt Fraction Macrocytosis Marked A PT INR APTT Sodium 131 L 132 L Potassium Carbon Dioxide 21 L BUN Creatinine Est GFR (CKD-EPI)AfAm Est GFR (CKD-EPI)NonAf Glucose 106 H 102 H POC Glucose (mg/dL) Calcium 8.2 L 8.2 L Total Bilirubin 12.4 H 12.7 H AST 114 H 106 H ALT 74 H 67 H Alkaline Phosphatase 360 H 257 H Ammonia Total Protein 6.1 L Albumin 2.4 L 2.1 L Albumin/Globulin Ratio Urine Blood Urine Bilirubin Urine Bacteria Hyaline Casts Urine Mucus 07/28/21 07/29/21 07/29/21 16:52 05:35 05:35 WBC RBC 2.93 L Hgb 11.0 L Hct 33.0 L MCV 112.7 H MCH 37.4 H MCHC RDW Plt Count 59 L Plt Count Comment MPV Absolute Nucleated RBC Neutrophils # (Manual) Lymphocytes # (Manual) 0.85 L Monocytes # (Manual) Eosinophils # (Manual) 0.73 H NRBC/100 WBC Diff Immature Plt Fraction Macrocytosis Marked A PT 19.9 H INR 2.0 H APTT Sodium 132 L Potassium Carbon Dioxide BUN Creatinine Est GFR (CKD-EPI)AfAm Est GFR (CKD-EPI)NonAf Glucose POC Glucose (mg/dL) Calcium 8.1 L Total Bilirubin 10.5 H AST 101 H ALT 69 H Alkaline Phosphatase 234 H Ammonia Total Protein 5.8 L Albumin 1.9 L Albumin/Globulin Ratio Urine Blood Urine Bilirubin Urine Bacteria Hyaline Casts Urine Mucus 07/29/21 07/29/21 07/30/21 05:35 17:48 06:29 WBC 17.24 H RBC 3.02 L 2.78 L Hgb 10.9 L 10.1 L Hct 34.1 L 32.6 L MCV 112.8 H 117.3 H MCH 36.0 H 36.3 H MCHC 31.0 L RDW 16.1 H Plt Count 67 L 57 L Plt Count Comment DECREASED A MPV 12.9 H Absolute Nucleated RBC 0.02 H Neutrophils # (Manual) 8.60 H Lymphocytes # (Manual) 0.19 L Monocytes # (Manual) Eosinophils # (Manual) NRBC/100 WBC Diff 0.1 H Immature Plt Fraction 11.3 H Macrocytosis Marked A PT 21.2 H INR 2.1 H APTT Sodium Potassium Carbon Dioxide BUN Creatinine Est GFR (CKD-EPI)AfAm Est GFR (CKD-EPI)NonAf Glucose POC Glucose (mg/dL) Calcium Total Bilirubin AST ALT Alkaline Phosphatase Ammonia Total Protein Albumin Albumin/Globulin Ratio Urine Blood Urine Bilirubin Urine Bacteria Hyaline Casts Urine Mucus 07/30/21 07/30/21 07/30/21 06:29 06:29 09:41 WBC RBC Hgb Hct MCV MCH MCHC RDW Plt Count Plt Count Comment MPV Absolute Nucleated RBC Neutrophils # (Manual) Lymphocytes # (Manual) Monocytes # (Manual) Eosinophils # (Manual) NRBC/100 WBC Diff Immature Plt Fraction Macrocytosis PT 23.4 H INR 2.21 H APTT Sodium 132 L Potassium 5.8 H Carbon Dioxide 15.3 L BUN Creatinine 1.8 H Est GFR (CKD-EPI)AfAm 49.7 L Est GFR (CKD-EPI)NonAf 42.9 L Glucose POC Glucose (mg/dL) Calcium 8.0 L Total Bilirubin 10.40 H AST 152 H ALT 74 H Alkaline Phosphatase Ammonia 46 H Total Protein 4.5 L Albumin 1.8 L Albumin/Globulin Ratio 0.67 L Urine Blood Urine Bilirubin Urine Bacteria Hyaline Casts Urine Mucus 07/31/21 07/31/21 07/31/21 03:00 06:45 07:09 WBC RBC Hgb Hct MCV MCH MCHC RDW Plt Count Plt Count Comment MPV Absolute Nucleated RBC Neutrophils # (Manual) Lymphocytes # (Manual) Monocytes # (Manual) Eosinophils # (Manual) NRBC/100 WBC Diff Immature Plt Fraction Macrocytosis PT INR APTT Sodium 132 L Potassium 6.3 H* Carbon Dioxide 15 L BUN 35 H Creatinine 2.38 H Est GFR (CKD-EPI)AfAm Est GFR (CKD-EPI)NonAf Glucose <20 L* POC Glucose (mg/dL) <20 L Calcium 8.0 L Total Bilirubin 13.3 H AST 383 H ALT 109 H Alkaline Phosphatase Ammonia Total Protein 5.5 L Albumin 2.0 L Albumin/Globulin Ratio Urine Blood Trace H Urine Bilirubin 2+ H Urine Bacteria Occasional H Hyaline Casts 28 H Urine Mucus Rare H 07/31/21 07/31/21 07:11 09:09 WBC RBC Hgb Hct MCV MCH MCHC RDW Plt Count Plt Count Comment MPV Absolute Nucleated RBC Neutrophils # (Manual) Lymphocytes # (Manual) Monocytes # (Manual) Eosinophils # (Manual) NRBC/100 WBC Diff Immature Plt Fraction Macrocytosis PT INR APTT Sodium Potassium Carbon Dioxide BUN Creatinine Est GFR (CKD-EPI)AfAm Est GFR (CKD-EPI)NonAf Glucose POC Glucose (mg/dL) <20 L 57 L Calcium Total Bilirubin AST ALT Alkaline Phosphatase Ammonia Total Protein Albumin Albumin/Globulin Ratio Urine Blood Urine Bilirubin Urine Bacteria Hyaline Casts Urine Mucus Assessment and Plan Plan: 1 acute decompensated liver failure in a patient with known history of alcoholism and liver cirrhosis. 2 hepatitic encephalopathy. Serum ammonia level has been elevated 46. 3 diffuse fluid overload/anasarca and swelling of the lower extremities and his scrotum secondary to liver cirrhosis 4 acute hypotension, could be septic in nature, currently on IV Rocephin. 5 ascites status post paracentesis with a removal of 1.3 L of ascitic fluid, cultures are still pending 6 acute kidney injury and a creatinine is up to 2.38 and the patient is oliguric at this point 7 acute hyperkalemia 8 a combination of anion and anion gap metabolic acidosis 9 acute hyperbilirubinemia 10 abnormalities in LFTs secondary to liver cirrhosis 11 acute leukocytosis 13 alcoholism 14 coagulopathy secondary to liver cirrhosis Plan Give the patient 100% nonrebreather facemask and obtain a blood gas. Hemodynamically resuscitation will be started the patient is currently hypotensive. Continued IV Rocephin for now. Check a pro-calcitonin level and s ent to sets of blood cultures and start the patient on a bicarb infusion with 150 mEq of sodium bicarbonate the rate of 1 50 mL an hour a combination with norepinephrine infusion and those will be titrated to keep a mean arterial pressure above 60. Keep the Galvez catheter monitor urine output Give the patient a total of 50 mEq of bicarbonate now IV push give the patient D50 insulin regarding his acute hyperkalemia Give the patient calcium gluconate 1 g Consult nephrology regarding his acute kidney injury and hyperkalemia Stop diuretics for now Inserted an NG tube and start the patient on lactulose 10 ML's 3 times a day Patient is agitated and there may be potentially a component the entrapment although the patient denies drinking alcohol for more than 2 weeks. Well- controlled agitation by the use of low-dose Precedex here in the intensive care unit. Triple-lumen catheter and arterial line catheter didn't establish Repeat CBC, complete metabolic profile, dilation profile, lactic acid level, in combination with pro-calcitonin and blood cultures IV Protonix 40 mg every 24 hours Stat chest x-ray post-line insertion. I prefer inserting an NG and obtaining only one chest x-ray. Compression devices to his lower extremity for DVT prophylaxis. The patient is coagulopathic at this point Condition is critical we'll continue to follow make further recommendations based on his progress. Time with Patient: Greater than 30
--- NOTE | 2021-07-31 10:37 | P.PCN ---
Date of Procedure: 07/31/21 Preoperative Diagnosis: Hepatic encephalopathy, acute liver injury Postoperative Diagnosis: Hepatic encephalopathy, acute liver injury Procedure(s) Performed: central line, arterial line Anesthesia: local Surgeon: Mackenzie Sierra Estimated Blood Loss (ml): 0 Pathology: none sent Condition: critical Disposition: ICU Operative Findings: Indication: Hemodynamic monitoring/Intravenous access. A time-out was completed verifying correct patient, procedure, site, positioning, and implant(s) or special equipment if applicable. The patient was placed in a dependent position appropriate for central line placement based on the vein to be cannulated. The patient s left neck was prepped and draped in sterile fashion. 1% Lidocaine was used to anesthetize the surrounding skin area. A triple lumen 9F Cordis catheter was introduced into the internal jugular vein using Seldinger technique. The catheter was threaded smoothly over the guide wire and appropriate blood return was obtained. Each lumen of the catheter was evacuated of air and flushed with sterile salin e. The catheter was then sutured in place to the skin and a sterile dressing applied. Perfusion to the extremity distal to the point of catheter insertion was checked and found to be adequate. The patient tolerated the procedure well and there were no complications. Indication: Hemodynamic monitoring. A time-out was completed verifying correct patient, procedure, site, positioning, and implant(s) or special equipment if applicable. Tommy s test was performed to ensure adequate perfusion. The patients right wrist was prepped and draped in sterile fashion. 1% Lidocaine was used to anesthetize the area. An 18G Arrow arterial line was introduced into the radial artery. The catheter was threaded over the guide wire and the needle was removed with appropriate pulsatile blood return. Blood loss was minimal. The catheter was then sutured in place to the skin and a sterile dressing applied. Perfusion to the extremity distal to the point of catheter insertion was checked and found to be adequate. The patient tolerated the procedure well and there were no complications.
[2021-07-31] MEDS ORDERED: SODIUM BICARB 8.4% 50 ML SYR (1 MEQ/ML) IV STA (10:47)
[2021-07-31] MEDS ORDERED: DEXTROSE 50% SYRINGE 50 ML IVP STA (10:48)
[2021-07-31] MEDS ORDERED: INSULIN REGULAR 100 UNIT/ML VIAL (IV) IV ONE (10:50)
[2021-07-31] MEDS ORDERED: CALCIUM GLUCONATE 1 GM in SODIUM CHLORIDE 0.9% 100 ML IVPB ONE (10:51)
[2021-07-31] MEDS: DEXMEDETOMIDINE/0.9% NACL(PMX) 400 MCG in EMPTY BAG 1 BAG IV SCH (11:00)
[2021-07-31] MEDS: NOREPINEPHRINE 4 MG in SODIUM CHLORIDE 0.9% 250 ML IV SCH ×2 (11:00→12:59)
--- NOTE | 2021-07-31 11:09 | XR ---
EXAMINATION TYPE: XR chest 1V portable DATE OF EXAM: 07/31/2021 CLINICAL HISTORY: NG tube and central line placement. TECHNIQUE: Single AP portable upright view of the chest is obtained. COMPARISON: Chest x-ray and CT chest from July 10, 2021 FINDINGS: New left-sided internal jugular central venous catheter terminates in presumed SVC, slight ly more right horizontal course distally than expected. New nasogastric tube projects below diaphragm . New bilateral faint increased opacities. More prominent cardiomegaly. No pneumothorax seen. IMPRESSION: More Prominent cardiomegaly. New multifocal opacities, correlate to exclude covid-19 infe ction. Other findings as noted above.
[2021-07-31 11:48] LABS: ABG Base Excess -9.8 mmol/L; ABG HCO3 18 mmol/L (21-25); ABG Oxygen Saturation 99.7 % (94-97); ABG PCO2 46 mmHg (35-45); ABG PO2 167 mmHg (83-108); ABG TCO2 20 mmol/L (19-24)
[2021-07-31 11:50] LABS: Allen Test Performed? no
[2021-07-31] MEDS: DEXTROSE 5% IN WATER 1,000 ML with SODIUM BICARB (1 MEQ/ML) 150 ML IV SCH ×2 (12:29→21:01)
[2021-07-31] MEDS: LACTULOSE 20 GM/30 ML CUP PO SCH ×3 (12:50→21:15)
[2021-07-31 13:14] LABS: Glucose,Whole Blood 84 mg/dL (75-99)
[2021-07-31 14:27] LABS: HCT 31.4 % (39.0-53.0); HGB 9.7 gm/dL (13.0-17.5); Hypochromasia Marked; MCH 36.9 pg (25.0-35.0); Macrocytosis Marked; Mean Platelet Volume 11.4; RBC 2.63 m/uL (4.30-5.90)
[2021-07-31 14:38] LABS: Calcium 7.6 mg/dL (8.4-10.2); Potassium 5.2 mmol/L (3.5-5.1)
[2021-07-31 14:48] LABS: MCV 119.2 fL (80.0-100.0)
[2021-07-31 14:49] LABS: Platelet Count 63 k/uL (150-450)
--- NOTE | 2021-07-31 16:14 | P.PN ---
Progress Note - Text Progress Note Date: 07/31/21 Presenting complaint: Distended abdomen Hospital course: 56-year-old male who came into the emergency department with complaints of generalized anasarca increased swelling in the lower extremities as well as the scrotum. He was recently hospitalized a couple weeks ago diagnosed with cirrhosis of the liver. Has a history of alcoholism and states that he quit drinking approximately 15 days ago. He has been heavy drinker for many years without any known diagnosis of cirrhosis of the liver until last admission. During his last admission he was started on some low-dose diuretics. I'm covering this patient for Dr. Rey kelley July 4: Laying in bed. Tired. Abdomen distended. Significant edema. Scrotal edema. Eating 50-65%. Significant fluid overload. We'll start the patient on IV Lasix drip. Fluid restriction 1500 mL. Strict I's and O's. Follow electrolytes. Patient had 1.1 L of ascites fluid removed August 10: Patient this morning rather lethargic. Hypotensive. Decreased urine output. Hypoxic. After talking to Dr. Sierra from critical care patient's transfer to the ICU. Drips include levo fed and Precedex. Has NG tube in place and a Ventimask. Lethargic. Concentrated and decreased urine output. I did speak to patient's mother over the phone and updated her. Prognosis guarded. Review of systems: Patient encephalopathic Active Medications Ceftriaxone Sodium 1 gm/ (Sodium Chloride) 50 mls @ 100 mls/hr IVPB Q24HR [facility] [place] Last Admin: 07/31/21 08:45 Dose: 100 mls/hr Documented by: Furosemide 100 mg/ Sodium (Chloride) 100 mls @ 10 mls/hr IV .Q10H [facility] [place] Last Admin: 07/31/21 08:29 Dose: Not Given Documented by: Sodium Bicarbonate 150 ml/ (Dextrose/Water) 1,150 mls @ 150 mls/hr IV .[id number] [facility] [place] Last Admin: 07/31/21 12:29 Dose: 150 mls/hr Documented by: Dexmedetomidine HCl 400 mcg/ (IV Solution) 100 mls @ 5.398 mls/hr IV .[id number] [facility] [place]; Protocol Last Admin: 07/31/21 11:00 Dose: 0.2 mcg/kg/hr, 5.398 mls/hr Documented by: Norepinephrine Bitartrate 32 (mg/ Sodium Chloride) 282 mls @ 2.854 mls/hr IV .Q24H [facility] [place]; Protocol Lactulose (Lactulose 20 Gm/30 Ml Cup) 10 gm PO TID [facility] [place] Last Admin: 07/31/21 12:50 Dose: 10 gm Documented by: Lorazepam (Lorazepam 2 Mg/Ml Inj) 1 mg IV Q2HR PRN PRN Reason: CIWA 8 or 9 Lorazepam (Lorazepam 2 Mg/Ml Inj) 1 mg IV Q1HR PRN PRN Reason: CIWA 10 to 15 Lorazepam (Lorazepam 2 Mg/Ml Inj) 2 mg IV Q10M PRN PRN Reason: CIWA 16 or higher Stop: 08/02/21 07:48 Metoprolol Tartrate (Metoprolol Tartrate 25 Mg Tab) 25 mg PO BID [facility] [place] Last Admin: 07/30/21 22:15 Dose: 25 mg Documented by: Multivitamins (Multivitamins, Thera 1 Each Tab) 1 each PO DAILY [facility] [place] Last Admin: 07/30/21 09:58 Dose: 1 each Documented by: Naloxone HCl (Naloxone 0.4 Mg/Ml 1 Ml Vial) 0.2 mg IV Q2M PRN PRN Reason: Opioid Reversal Pantoprazole Sodium (Pantoprazole 40 Mg Tablet) 40 mg PO [id number] [facility] [place] Last Admin: 07/31/21 08:29 Dose: Not Given Documented by: Pantoprazole Sodium (Pantoprazole 40 Mg/10 Ml Vial) 40 mg IVP DAILY [facility] [place] Phytonadione (Phytonadione Oral 5 Mg/5 Ml Oral.Syrg) 10 mg PO DAILY [facility] [place] Last Admin: 07/30/21 12:51 Dose: 10 mg Documented by: Thiamine HCl (Thiamine 100 Mg Tab) 100 mg PO BID-W/MEALS [facility] [place] Last Admin: 07/31/21 08:29 Dose: Not Given Documented by: On examination: VITAL SIGNS: Afebrile, 60, 20, 140/51, 98% on Ventimask GENERAL APPEARANCE: , laying in bed, tired, lethargic HEENT: Normal external appearance of nose and ear. Oral cavity normal. NG tube EYES: Pupils equal. Conjunctiva icterus NECK: JVD not raised. Mass not palpable. RESPIRATORY: Respiratory effort increased. Lungs decreased breath sounds. CARDIOVASCULAR: First and second sounds normal. Severe edema ABDOMEN: Soft. Distended. Liver and spleen not palpable. No tenderness. No mass palpable. Dullness to percussion in the flanks PSYCHIATRY: lethargic not able to answer questions . INVESTIGATIONS, reviewed in the clinical context: August 10: White count 20 hemoglobin 9.7 platelets 63 ABGs: PH 7.2 sodium 131 potassium 5.2 creatinine 2.6 White count 17.2 hemoglobin 10.1 platelets 57 ProTime 23.4 sodium 132 potassium 5.8 BUN 21.9 creatinine 1.8 total bilirubin 10.4 AST 152 ALT 74 albumin 1.8 ammonia 46 Ultrasound liver: Cirrhosis. Ascites. Assessment and plan: -Hypotensive shock levo fed -Alcohol-induced cirrhosis with evidence of portal hypertension Lopressor 25 mg twice a day -Hepatorenal syndrome, acute kidney injury/ATN: Worsening Follow labs closely. BHASKAR. Consult nephrology's -Severe fluid overload from cirrhosis IV Lasix drip. Strict I's and O's. Fluid restriction 1500 mL. -Essential hypertension Lopressor 25 mg twice a day-hold for now -Hepatic encephalopathy Scheduled lactulose -Severe thrombocytopenia from cirrhosis Watch for bleeding -Metabolic acidosis from renal failure Bicarbonate drip -Lactic acidosis combination of hypotension and cirrhosis -Coagulopathy significant secondary to cirrhosis Vitamin K by mouth 10 daily -Hyperkalemia secondary to Aldactone and kidney injury Cutback Aldactone. Lasix drip. -Macrocytic anemia secondary to cirrhosis and nutritional -Hyponatremia from fluid overload: Slow to respond -Severe hyper bilirubinemia Poor prognosis for cirrhosis Patient critical. Moved to the ICU. Drips include levo fed and Precedex. NG tube. Ventimask. Consultation with tobacco wrapping machine tender and nephrology. DC Lopressor. Bicarbonate drip. Spoke to mother on the phone and updated guarded prognosis.
[2021-07-31 16:33] LABS: Band Neutrophils % 9 %; Neutrophils % (M) 66 %; Nucleated Red Blood Cells 0 /100 WBC (0-0); Total Cells Counted 100
[2021-07-31 16:35] LABS: Poikilocytosis (M) Present
[2021-07-31] MEDS ORDERED: SODIUM CHLORIDE 0.9% 1,000 ML IV ONE (16:37)
[2021-07-31 17:18] LABS: Glucose,Whole Blood 132 mg/dL (75-99)
[2021-07-31] MEDS: NOREPINEPHRINE 32 MG in SODIUM CHLORIDE 0.9% 250 ML IV SCH (19:55)
[2021-07-31] MEDS: MULTIVITAMINS, THERA 1 EACH TAB PO SCH (20:02)
[2021-07-31] MEDS: PHYTONADIONE ORAL 5 MG/5 ML ORAL.SYRG PO SCH (20:02)
[2021-07-31 20:09] LABS: Glucose,Whole Blood 122 mg/dL (75-99)
[2021-07-31] MEDS ORDERED: SODIUM CHLORIDE 0.9% 2,000 ML IV ONE (20:24)
[2021-07-31] MEDS ORDERED: propofoL 100 ML IV ONE (20:27)
[2021-07-31] MEDS: SODIUM CHLORIDE 0.9% 150 ML with VASOPRESSIN 60 UNIT IV SCH ×2 (20:43)
[2021-07-31] MEDS: PANTOPRAZOLE 40 MG/10 ML VIAL IVP SCH (21:16)
[2021-07-31] MEDS: CHLORHEXIDINE GLUCONATE 15 ML CUP MUCOUS MEM SCH (21:16)
--- NOTE | 2021-07-31 21:22 | XR ---
EXAMINATION TYPE: XR chest 1V portable DATE OF EXAM: 07/31/2021 8:55 PM COMPARISON:Chest radiographs from 522 TECHNIQUE: Frontal view of the chest. CLINICAL INDICATION:Male, 56 years old with history of Tube placement; FINDINGS: Lungs/Pleura: Multifocal airspace opacities. No evidence of pneumothorax or pleural effusion. Pulmonary vascularity: Unremarkable. Heart/mediastinum: Cardiomediastinal silhouette is enlarged and stable. Musculoskeletal: No acute osseous pathology. Lines/Tubes: Endotracheal tube with distal tip 4 cm above the conor Nasogastric tube with its distal tip and side-port projecting under the diaphragm. Left internal jugular central venous catheter with distal tip at the superior vena cava brachiocephal ic vein junction. IMPRESSION: 1. Support line and tubes in appropriate position. 2. Scattered airspace disease unchanged.
[2021-07-31 21:25] LABS: ABG Base Excess -4.6 mmol/L; ABG HCO3 21 mmol/L (21-25); ABG Oxygen Saturation 99.9 % (94-97); ABG PCO2 35 mmHg (35-45); ABG PH 7.38 (7.35-7.45); ABG PO2 149 mmHg (83-108); ABG TCO2 22 mmol/L (19-24)
[2021-07-31 21:27] LABS: Allen Test Performed? No
[2021-07-31] MEDS: fentaNYL (PF). 1,000 MCG in SODIUM CHLORIDE 0.9% 80 ML IV SCH (22:48)
[2021-07-31 23:14] LABS: Glucose,Whole Blood 152 mg/dL (75-99)
[2021-07-31 23:50] LABS: Glucose,Whole Blood 132 mg/dL (75-99)
[2021-08-01] MEDS: NOREPINEPHRINE 32 MG in SODIUM CHLORIDE 0.9% 250 ML IV SCH ×4 (01:50→16:05)
[2021-08-01] MEDS: DEXTROSE 5% IN WATER 1,000 ML with SODIUM BICARB (1 MEQ/ML) 150 ML IV SCH (03:45)
[2021-08-01 04:24] LABS: Albumin 1.9 g/dL (3.5-5.0); Magnesium 1.7 mg/dL (1.6-2.3); Potassium 5.1 mmol/L (3.5-5.1); Total Protein 5.5 g/dL (6.3-8.2)
[2021-08-01 04:39] LABS: Total Bilirubin 16.3 mg/dL (0.2-1.3)
[2021-08-01 05:00] LABS: HCT 37.7 % (39.0-53.0); MCH 36.6 pg (25.0-35.0); MCHC 31.8 g/dL (31.0-37.0); MCV 115.2 fL (80.0-100.0); Macrocytosis Marked; RBC 3.27 m/uL (4.30-5.90); RDW 15.2 % (11.5-15.5); WBC 23.7 k/uL (3.8-10.6)
[2021-08-01 05:03] LABS: Platelet Count 67 k/uL (150-450)
[2021-08-01 05:15] LABS: ABG Base Excess -2.6 mmol/L; ABG HCO3 22 mmol/L (21-25); ABG Oxygen Saturation 92.9 % (94-97); ABG PCO2 31 mmHg (35-45); ABG PH 7.45 (7.35-7.45); ABG PO2 65 mmHg (83-108); ABG TCO2 23 mmol/L (19-24)
[2021-08-01 05:18] LABS: Glucose,Whole Blood 139 mg/dL (75-99)
[2021-08-01 05:40] LABS: Allen Test Performed? No
--- NOTE | 2021-08-01 06:15 | XR ---
EXAMINATION TYPE: XR chest 1V DATE OF EXAM: 08/01/2021 CLINICAL HISTORY: Difficulty breathing progress study. TECHNIQUE: Single AP portable upright view of the chest is obtained. COMPARISON: Chest x-ray from one day earlier and older studies. FINDINGS: Stage left-sided internal jugular central venous catheter. Stable nasogastric tube and end otracheal tube. Persistent bilateral multifocal increased opacities. Persistent cardiomegaly. Osseous structures are intact. IMPRESSION: Mild Cardiomegaly with bilateral multifocal increased opacities could reflect edema and/o r infiltrates with small right pleural effusion now suspected, still favor covid-19 infection over CH F exacerbation. Correlate clinically.
[2021-08-01 06:52] LABS: Band Neutrophils % 31 %; Lymphocytes # (M) 0.95 k/uL (1.0-4.8); Monocytes # (M) 2.13 k/uL (0-1.0); Neutrophils % (M) 57 %; Nucleated Red Blood Cells 0 /100 WBC (0-0); Total Cells Counted 200
[2021-08-01 07:01] LABS: Anisocytosis (M) Present
[2021-08-01 07:04] LABS: Polychromasia Present
[2021-08-01 07:05] LABS: Poikilocytosis (M) Present
[2021-08-01] MEDS ORDERED: FUROSEMIDE 10 MG/ML 10 ML VIAL IV STA (08:34)
[2021-08-01] MEDS ORDERED: CALCIUM GLUCONATE 2 GM in SODIUM CHLORIDE 0.9% 100 ML IVPB ONE (08:35)
--- NOTE | 2021-08-01 08:38 | P.NPCON ---
History of Present Illness - Reason for Consult acute renal failure - History of Present Illness Reason for consultation: Acute kidney injury History of present illness: Patient is a 56-year-old male seen in renal consultation for acute kidney injury. Patient presented to the hospital on 07/27/2021 with generalized edema. Patient does have history of liver cirrhosis. Patient has history of alcohol abuse. It appears that he was taking Aldactone as well as Lasix outpatient. However the swelling continued to get worse and he came to the hospital. He is currently intubated. He is also on Levophed as well as vasopressin. He is maintained on bicarb drip running at 50 mL an hour. Patient is oliguric. No proteinuria on UA. He has an NG tube in place. 250 mL were obtained from the NG tube overnight. He did undergo paracentesis on 07/30/2021 with 1.1 L drained. He is currently on 80% FiO2. Patient's baseline creatinine is near 1 and peaked at 2.6 this admission. It is 2.41 today. Vital signs are stable. On vasopressor support. General: Generalized jaundice. HEENT: Intubated. NG tube noted. LUNGS: Breath sounds decreased. HEART: Rate and Rhythm are regular. ABDOMEN: Distention noted. EXTREMITITES: 2+ edema. Past Medical History Past Medical History: Liver Disease, Skin Disorder Additional Past Medical History / Comment(s): RECENT ABSCESS TO LOWER INTESTINES- WAS ON ANTIBIOTICS-RESOLVED AT THIS TIME, psoriasis history. cirrhosis, ascites History of Any Multi-Drug Resistant Organisms: None Reported Past Surgical History: No Surgical Hx Reported, Orthopedic Surgery Past Anesthesia/Blood Transfusion Reactions: No Reported Reaction Past Psychological History: No Psychological Hx Reported Smoking Status: Never smoker Past Alcohol Use History: Daily Past Drug Use History: Marijuana Additional Drug Use History / Comment(s): SMOKES 1-2 TIMES WEEKLY - Past Family History Mother Family Medical History: No Reported History Medications and Allergies Home Medications Medication Instructions Recorded Confirmed Type Multivitamins, Thera [Multivitamin 1 tab PO DAILY 07/10/21 07/27/21 History (formulary)] Furosemide [Lasix] 20 mg PO DAILY 90 Days #90 tab 07/13/21 07/27/21 Rx Thiamine [Vitamin B-1] 100 mg PO BID-W/MEALS 30 Days #60 07/13/21 07/27/21 Rx tab cloNIDine HCL [Catapres] 0.1 mg PO TID 30 Days #90 tab 07/13/21 07/27/21 Rx Spironolactone [Aldactone] 50 mg PO TID 07/27/21 07/27/21 History cloNIDine HCL [Catapres] 0.2 mg PO TID 07/27/21 07/27/21 History Allergies Allergy/AdvReac Type Severity Reaction Status Date / Time No Known Allergies Allergy Verified 07/27/21 13:34 Physical Exam Vitals: Vital Signs Temp Pulse Pulse Resp BP BP Pulse Ox 08/01/21 08:00 64 28 H 117/34 96 08/01/21 07:00 64 28 H 123/41 96 08/01/21 06:00 64 28 H 121/34 95 08/01/21 05:00 97.9 F 64 28 H 117/35 94 L 08/01/21 04:00 96 F L 56 L 28 H 118/35 93 L 08/01/21 03:00 52 L 28 H 115/39 94 L 08/01/21 02:00 49 L 28 H 120/39 96 08/01/21 01:00 95.4 F L 46 L 28 H 115/39 96 08/01/21 00:00 45 L 28 H 104/43 94 L 07/31/21 23:00 43 L 28 H 96 07/31/21 22:00 44 L 28 H 96 07/31/21 21:00 93.2 F L 46 L 28 H 155/56 94 L 07/31/21 20:00 52 L 10 L 102/67 98 07/31/21 19:27 97 07/31/21 19:00 84 22 105/59 97 07/31/21 18:15 55 L 11 L 96 07/31/21 18:00 55 L 12 114/56 97 07/31/21 17:45 55 L 9 L 114/56 95 07/31/21 17:30 54 L 11 L 114/56 95 07/31/21 17:15 77 14 114/56 95 07/31/21 17:00 62 14 106/50 96 07/31/21 16:45 58 L 10 L 106/50 97 07/31/21 16:30 55 L 9 L 106/50 96 07/31/21 16:15 59 L 9 L 106/50 97 07/31/21 16:00 98 F 57 L 11 L 114/51 96 07/31/21 15:45 55 L 9 L 114/51 96 07/31/21 15:30 53 L 6 L 114/51 96 07/31/21 15:15 60 7 L 114/51 98 07/31/21 15:00 53 L 6 L 73/44 97 07/31/21 14:45 53 L 7 L 95 07/31/21 14:30 52 L 7 L 73/44 94 L 07/31/21 14:15 56 L 6 L 73/44 94 L 07/31/21 14:00 52 L 7 L 108/59 98 07/31/21 13:45 54 L 7 L 108/59 98 07/31/21 13:30 58 L 7 L 108/59 95 07/31/21 13:15 56 L 7 L 108/59 94 L 07/31/21 13:00 64 7 L 96/55 93 L 07/31/21 12:45 58 L 10 L 96/55 99 07/31/21 12:30 53 L 7 L 96/55 98 07/31/21 12:15 58 L 8 L 96/55 98 07/31/21 12:00 97.5 F L 61 12 117/39 96 07/31/21 11:58 58 L 8 L 98 07/31/21 11:45 52 L 72/33 98 07/31/21 11:30 67 29 H 110/51 97 07/31/21 11:15 71 118/52 95 07/31/21 11:00 54 L 81/35 98 07/31/21 10:45 67 83/48 96 07/31/21 10:30 70 15 98/87 96 07/31/21 10:00 60 16 103/82 07/31/21 09:45 57 L 16 89/41 97 07/31/21 08:52 79/45 07/31/21 08:47 75/46 Intake and Output 07/31/21 08/01/21 08/01/21 22:59 06:59 14:59 Intake Total 4350.748 1687.456 156 Output Total 125 0 0 Balance 4225.748 1687.456 156 Intake: IV 2468 1248 156 0.9 NaCl- Fluid bolus 2000 Pressure bag 18 48 6 Sodium Bicarbonate 450 1200 150 Intake, IV Titration 1882.748 439.456 Amount Dexmedetomidine/0.9% NaCl 52.001 (Pmx) 400 mcg In Empty Bag 1 bag @ 0.2 MCG/KG/HR 5.398 mls/hr IV .[id number] [facility] Rx#:[id number] Dextrose 5% in Water 1, 750 000 ml @ 150 mls/hr IV . Q7H40M [facility] with Sodium Bicarb (1 Meq/ml) 150 ml Rx#:[id number] Norepinephrine 32 mg In 58.508 189.796 Sodium Chloride 0.9% 250 ml @ 0.05 MCG/KG/MIN 2. 854 mls/hr IV .Q24H [facility] Rx#:[id number] Sodium Chloride 0.9% 1, 1000 000 ml @ 999 mls/hr IV . Q1H1M [facility] Rx#:[id number] propofoL 1,000 mg In 22.239 249.66 Empty Bag 1 bag @ Titrate IV .Q0M [facility] Rx#: [id number] Output: Urine 0 0 0 Other 125 Other: Voiding Method Indwelling Catheter Indwelling Catheter # Bowel Movements 1 1 Weight 125 kg ABP, PAP, CO, CI - Last 8 Hours Arterial Blood Pressure 103/45 Arterial Blood Pressure 104/43 Arterial Blood Pressure 100/42 Arterial Blood Pressure 112/43 Arterial Blood Pressure 112/43 Arterial Blood Pressure 111/44 Arterial Blood Pressure 110/43 Arterial Blood Pressure 120/46 Results - Lab Results Most recent lab results ABG pH 7.45 (7.35-7.45) 08/01/21 05:07 ABG pCO2 31 mmHg (35-45) L 08/01/21 05:07 ABG pO2 65 mmHg (83-108) L 08/01/21 05:07 ABG HCO3 22 mmol/L (21-25) 08/01/21 05:07 ABG O2 Saturation 92.9 % (94-97) L 08/01/21 05:07 Calcium 7.0 mg/dL (8.4-10.2) L 08/01/21 04:03 Magnesium 1.7 mg/dL (1.6-2.3) 08/01/21 04:03 08/01/21 04:03 08/01/21 04:03 Assessment and Plan Plan: Assessment: 1. Acute kidney injury secondary to ATN secondary to hypotension. Creatinine peaked at 2.6 this admission and is 2.41 today. Oliguric. 2. Decompensated liver cirrhosis. 3. Metabolic acidosis secondary to acute kidney injury. Improved. Now has respiratory alkalosis. 4. Hypervolemic hyponatremia. 5. Hypocalcemia secondary to acute kidney injury and hypoalbuminemia. Replaced. 6. Hypotension maintained on vasopressor support. ?Sepsis. On antibiotics. 7. Volume overload. Plan: Stop bicarb drip. Start normal saline at 50 mL an hour. Lasix 80 mg IV once today. Wean FiO2 and vasopressors. Due to volume overload and oliguria, initiate renal replacement therapy. Consult vascular surgery for dialysis catheter placement. Plan for first immediate of hemodialysis today and second treatment tomorrow. Replace calcium. Thank you for the consultation. I will continue to follow the patient with you during his hospital stay.
[2021-08-01] MEDS: PANTOPRAZOLE 40 MG/10 ML VIAL IVP SCH (09:00)
[2021-08-01] MEDS: LACTULOSE 20 GM/30 ML CUP PO SCH ×2 (09:00→17:55)
[2021-08-01] MEDS: CEFEPIME 2 GM in SODIUM CHLORIDE 0.9% 100 ML IVPB SCH (09:03)
[2021-08-01] MEDS: SODIUM CHLORIDE 0.9% 1,000 ML IV SCH (09:06)
[2021-08-01] MEDS: MULTIVITAMINS, THERA 1 EACH TAB PO SCH (09:33)
[2021-08-01] MEDS: PHYTONADIONE ORAL 5 MG/5 ML ORAL.SYRG PO SCH (09:34)
[2021-08-01] MEDS: THIAMINE 100 MG TAB PO SCH (09:34)
[2021-08-01] MEDS: CHLORHEXIDINE GLUCONATE 15 ML CUP MUCOUS MEM SCH (09:35)
--- NOTE | 2021-08-01 10:11 | P.PN ---
Subjective Progress Note Date: 08/01/21 On 08/01/2021., I'm seeing the patient for a follow-up. The mother has been called to the hospital and she is currently at the bedside as the patient's condition has decompensated significantly. Note that the patient got transferred to us with hepatitic encephalopathy, hypotension, acute kidney injury, acute liver failure and acute hypoxic respiratory failure. Initially, he was resuscitated with IV fluids, antibiotics, and subsequently, he had to be intubated and placed on a mechanical ventilator. At this point in time, the patient is sedated and he is on propofol running at a dose of 50 mcg/kg per minute and fentanyl is running at 0.5 mcg/kg/h. He is well sedated for now. Is on a mechanical ventilator on assist control mode at the rate of 28, tidal volume of 500, FiO2 of 80% with a PEEP of 5. Blood gases from this morning show a pH of 7.44 with a pCO2 of 31 and pO2 of 65. Chest x-ray from this morning shows adequate positioning of the orotracheal tube. NG tube is also in place. The patient is adequate expansion of both lungs. There is no evidence of any pneumothorax. There is diffuse bilateral pulmonary infiltrates along with cardiomegaly. Possibly some bilateral pleural effusion. Note that the patient continues to be multisystem organ failure. In terms of his acute kidney injury, the patient has not produced any urine output. His creatinine maxed at 2.6 and currently is down to 2.4. His potassium level is 5.1. He was given bicarb infusion rather day yesterday and earlier this morning, he was seen by nephrology and the bicarb infusion was discontinued. The patient's potassium is already improving is down to 5.1. He was also given a dose of Lasix 80 mg IV pu sh and we are awaiting for some urine output. His ultrasound of the kidneys are still pending for now. Meanwhile, the patient also has developed an acute liver failure. His bilirubin is up to 16. AST is up to 1944 and the ALT is up to 640. His serum ammonia level was 122. His pro calcitonin level was 5.8 and based on that, antibiotics were further modified and the patient was started on IV cefepime after obtaining. The blood cultures. The paracentesis fluid has yielded no positive outcome and the cell count and the paracentesis fluid is as low as 72. The patient's cultures are all negative thus far. His white cell count is up to 23. His influenza 12. Platelet counts are low at 67. He has extensive tooth spacing and edema in all 4 extremities at this point in time. He is hemodynamically stable and he remains on higher doses of pressors and norepinephrine is running at 0.8 mcg/kg per minute and the patient is also on physiologic dose of vasopressin at 0.03 units an hour. Objective - Vital Signs Vital signs: Vital Signs Temp 98.2 F 08/01/21 08:00 Pulse 61 08/01/21 09:00 Resp 28 H 08/01/21 09:00 BP 117/37 08/01/21 09:00 Pulse Ox 95 08/01/21 09:00 Intake & Output 07/31/21 08/01/21 08/01/21 18:59 06:59 18:59 Intake Total 2115.787 4438.204 638 Output Total 10 125 0 Balance 2105.787 4313.204 638 Weight 125 kg Intake: IV 3716 156 0.9 NaCl- Fluid bolus 2000 Pressure bag 66 6 Sodium Bicarbonate 1650 150 Intake, IV Titration 2115.787 722.204 482 Amount Calcium Gluconate 1 gm In 100 Sodium Chloride 0.9% 100 ml @ 100 mls/hr IVPB ONCE [facility] Rx#:[id number] Cefepime 2 gm In Sodium 100 Chloride 0.9% 100 ml @ 25 mls/hr IVPB Q12HR [facility] Rx #:[id number] Dexmedetomidine/0.9% NaCl 52.001 (Pmx) 400 mcg In Empty Bag 1 bag @ 0.2 MCG/KG/HR 5.398 mls/hr IV .[id number] [facility] Rx#:[id number] Dextrose 5% in Water 1, 975 150 000 ml @ 150 mls/hr IV . Q7H40M [facility] with Sodium Bicarb (1 Meq/ml) 150 ml Rx#:[id number] Norepinephrine 32 mg In 248.304 282 Sodium Chloride 0.9% 250 ml @ 0.05 MCG/KG/MIN 2. 854 mls/hr IV .Q24H [facility] Rx#:[id number] Norepinephrine 4 mg In 40.787 Sodium Chloride 0.9% 250 ml @ 0.05 MCG/KG/MIN 20. 565 mls/hr IV .[id number] [facility] Rx#:[id number] Sodium Chloride 0.9% 1, 1000 000 ml @ 999 mls/hr IV . Q1H1M [facility] Rx#:[id number] propofoL 1,000 mg In 271.899 100 Empty Bag 1 bag @ Titrate IV .Q0M [facility] Rx#: [id number] Output: Urine 10 0 0 Other 125 Other: Voiding Method Incontinent Indwelling Catheter Indwelling Catheter # Bowel Movements 1 ABP, PAP, CO, CI - Last Documented Arterial Blood Pressure 123/48 - Exam Gen. appearance, the patient is jaundiced, sedated, calm and comfortable, intubated on a mechanical ventilator. Orotracheal and NG tube are both in place. No agitation. Symptoms with the mechanical ventilator. Head exam was generally normal. There was no scleral icterus or corneal arcus. Mucous membranes were moist. Neck was supple and without jugular venous distension, thyromegaly, or carotid b ruits. Carotids were easily palpable bilaterally. There was no adenopathy. The patient has a left IJ triple-lumen catheter in place. Lungs sounds are diminished bilaterally along with some scattered crackles in lung bases. Cardiac exam revealed the PMI to be normally situated and sized. The rhythm was regular and no extrasystoles were noted during several minutes of auscultation. The first and second heart sounds were normal and physiologic splitting of the second heart sound was noted. There were no murmurs, rubs, clicks, or gallops. Abdomen is distended. This fluid wave. No direct tenderness. No rebound tenderness. No guarding. The patient has a bag at the puncture site for paracentesis and there is still some minimal amount of leak of ascitic fluid into the bag. The patient has scrotal edema bilaterally. Extremities remain quite swollen. The patient has +2 pitting edema lower extremity is bilaterally. Pulses are diminished. No cyanosis or clubbing. Neurologically, the patient is profoundly sedated and calm and comfortable at this point in time. - Labs CBC & Chem 7: 08/01/21 04:03 08/01/21 04:03 Labs: Abnormal Lab Results - Last 24 Hours (Table) 07/31/21 07/31/21 07/31/21 Range/Units 11:47 14:15 14:15 WBC 20.0 H (3.8-10.6) k/uL RBC 2.63 L (4.30-5.90) m/uL Hgb 9.7 L (13.0-17.5) gm/dL Hct 31.4 L (39.0-53.0) % MCV 119.2 H D (80.0-100.0) fL MCH 36.9 H (25.0-35.0) pg Plt Count 63 L (150-450) k/uL Neutrophils # (Manual) 15.00 H (1.3-7.7) k/uL Lymphocytes # (Manual) (1.0-4.8) k/uL Monocytes # (Manual) (0-1.0) k/uL Macrocytosis Marked A ABG pH 7.20 L (7.35-7.45) ABG pCO2 46 H (35-45) mmHg ABG pO2 167 H (83-108) mmHg ABG HCO3 18 L (21-25) mmol/L ABG O2 Saturation 99.7 H (94-97) % ABG Lactic Acid (0.5-1.6) mmol/L Sodium (137-145) mmol/L Potassium (3.5-5.1) mmol/L Carbon Dioxide (22-30) mmol/L BUN (9-20) mg/dL Creatinine (0.66-1.25) mg/dL Glucose (74-99) mg/dL POC Glucose (mg/dL) (75-99) mg/dL Plasma Lactic Acid Ravi (0.7-2.0) mmol/L Calcium (8.4-10.2) mg/dL Total Bilirubin (0.2-1.3) mg/dL AST (17-59) U/L ALT (4-49) U/L Total Protein (6.3-8.2) g/dL Albumin (3.5-5.0) g/dL Procalcitonin 5.82 H (0.02-0.09) ng/mL 07/31/21 07/31/21 07/31/21 Range/Units 14:15 14:15 17:17 WBC (3.8-10.6) k/uL RBC (4.30-5.90) m/uL Hgb (13.0-17.5) gm/dL Hct (39.0-53.0) % MCV (80.0-100.0) fL MCH (25.0-35.0) pg Plt Count (150-450) k/uL Neutrophils # (Manual) (1.3-7.7) k/uL Lymphocytes # (Manual) (1.0-4.8) k/uL Monocytes # (Manual) (0-1.0) k/uL Macrocytosis ABG pH (7.35-7.45) ABG pCO2 (35-45) mmHg ABG pO2 (83-108) mmHg ABG HCO3 (21-25) mmol/L ABG O2 Saturation (94-97) % ABG Lactic Acid 5.1 H* (0.5-1.6) mmol/L Sodium 131 L (137-145) mmol/L Potassium 5.2 H (3.5-5.1) mmol/L Carbon Dioxide 18 L (22-30) mmol/L BUN 36 H (9-20) mg/dL Creatinine 2.60 H (0.66-1.25) mg/dL Glucose (74-99) mg/dL POC Glucose (mg/dL) 132 H (75-99) mg/dL Plasma Lactic Acid Ravi (0.7-2.0) mmol/L Calcium 7.6 L (8.4-10.2) mg/dL Total Bilirubin (0.2-1.3) mg/dL AST (17-59) U/L ALT (4-49) U/L Total Protein (6.3-8.2) g/dL Albumin (3.5-5.0) g/dL Procalcitonin (0.02-0.09) ng/mL 07/31/21 07/31/21 07/31/21 Range/Units 18:26 20:08 21:18 WBC (3.8-10.6) k/uL RBC (4.30-5.90) m/uL Hgb (13.0-17.5) gm/dL Hct (39.0-53.0) % MCV (80.0-100.0) fL MCH (25.0-35.0) pg Plt Count (150-450) k/uL Neutrophils # (Manual) (1.3-7.7) k/uL Lymphocytes # (Manual) (1.0-4.8) k/uL Monocytes # (Manual) (0-1.0) k/uL Macrocytosis ABG pH (7.35-7.45) ABG pCO2 (35-45) mmHg ABG pO2 149 H (83-108) mmHg ABG HCO3 (21-25) mmol/L ABG O2 Saturation 99.9 H (94-97) % ABG Lactic Acid (0.5-1.6) mmol/L Sodium (137-145) mmol/L Potassium (3.5-5.1) mmol/L Carbon Dioxide (22-30) mmol/L BUN (9-20) mg/dL Creatinine (0.66-1.25) mg/dL Glucose (74-99) mg/dL POC Glucose (mg/dL) 122 H (75-99) mg/dL Plasma Lactic Acid Ravi 4.3 H* (0.7-2.0) mmol/L Calcium (8.4-10.2) mg/dL Total Bilirubin (0.2-1.3) mg/dL AST (17-59) U/L ALT (4-49) U/L Total Protein (6.3-8.2) g/dL Albumin (3.5-5.0) g/dL Procalcitonin (0.02-0.09) ng/mL 07/31/21 07/31/21 07/31/21 Range/Units 23:13 23:43 23:49 WBC (3.8-10.6) k/uL RBC (4.30-5.90) m/uL Hgb (13.0-17.5) gm/dL Hct (39.0-53.0) % MCV (80.0-100.0) fL MCH (25.0-35.0) pg Plt Count (150-450) k/uL Neutrophils # (Manual) (1.3-7.7) k/uL Lymphocytes # (Manual) (1.0-4.8) k/uL Monocytes # (Manual) (0-1.0) k/uL Macrocytosis ABG pH (7.35-7.45) ABG pCO2 (35-45) mmHg ABG pO2 (83-108) mmHg ABG HCO3 (21-25) mmol/L ABG O2 Saturation (94-97) % ABG Lactic Acid (0.5-1.6) mmol/L Sodium (137-145) mmol/L Potassium (3.5-5.1) mmol/L Carbon Dioxide (22-30) mmol/L BUN (9-20) mg/dL Creatinine (0.66-1.25) mg/dL Glucose (74-99) mg/dL POC Glucose (mg/dL) 152 H 132 H (75-99) mg/dL Plasma Lactic Acid Ravi 5.6 H* (0.7-2.0) mmol/L Calcium (8.4-10.2) mg/dL Total Bilirubin (0.2-1.3) mg/dL AST (17-59) U/L ALT (4-49) U/L Total Protein (6.3-8.2) g/dL Albumin (3.5-5.0) g/dL Procalcitonin (0.02-0.09) ng/mL 08/01/21 08/01/21 08/01/21 Range/Units 04:03 04:03 04:03 WBC 23.7 H (3.8-10.6) k/uL RBC 3.27 L (4.30-5.90) m/uL Hgb 12.0 L (13.0-17.5) gm/dL Hct 37.7 L (39.0-53.0) % MCV 115.2 H (80.0-100.0) fL MCH 36.6 H (25.0-35.0) pg Plt Count 67 L (150-450) k/uL Neutrophils # (Manual) 20.80 H (1.3-7.7) k/uL Lymphocytes # (Manual) 0.95 L (1.0-4.8) k/uL Monocytes # (Manual) 2.13 H (0-1.0) k/uL Macrocytosis Marked A ABG pH (7.35-7.45) ABG pCO2 (35-45) mmHg ABG pO2 (83-108) mmHg ABG HCO3 (21-25) mmol/L ABG O2 Saturation (94-97) % ABG Lactic Acid (0.5-1.6) mmol/L Sodium 130 L (137-145) mmol/L Potassium (3.5-5.1) mmol/L Carbon Dioxide 19 L (22-30) mmol/L BUN 39 H (9-20) mg/dL Creatinine 2.41 H (0.66-1.25) mg/dL Glucose 137 H (74-99) mg/dL POC Glucose (mg/dL) (75-99) mg/dL Plasma Lactic Acid Ravi 6.0 H* (0.7-2.0) mmol/L Calcium 7.0 L (8.4-10.2) mg/dL Total Bilirubin 16.3 H* (0.2-1.3) mg/dL AST 1944 H (17-59) U/L ALT 640 H (4-49) U/L Total Protein 5.5 L (6.3-8.2) g/dL Albumin 1.9 L (3.5-5.0) g/dL Procalcitonin (0.02-0.09) ng/mL 08/01/21 08/01/21 Range/Units 05:07 05:14 WBC (3.8-10.6) k/uL RBC (4.30-5.90) m/uL Hgb (13.0-17.5) gm/dL Hct (39.0-53.0) % MCV (80.0-100.0) fL MCH (25.0-35.0) pg Plt Count (150-450) k/uL Neutrophils # (Manual) (1.3-7.7) k/uL Lymphocytes # (Manual) (1.0-4.8) k/uL Monocytes # (Manual) (0-1.0) k/uL Macrocytosis ABG pH (7.35-7.45) ABG pCO2 31 L (35-45) mmHg ABG pO2 65 L (83-108) mmHg ABG HCO3 (21-25) mmol/L ABG O2 Saturation 92.9 L (94-97) % ABG Lactic Acid (0.5-1.6) mmol/L Sodium (137-145) mmol/L Potassium (3.5-5.1) mmol/L Carbon Dioxide (22-30) mmol/L BUN (9-20) mg/dL Creatinine (0.66-1.25) mg/dL Glucose (74-99) mg/dL POC Glucose (mg/dL) 139 H (75-99) mg/dL Plasma Lactic Acid Ravi (0.7-2.0) mmol/L Calcium (8.4-10.2) mg/dL Total Bilirubin (0.2-1.3) mg/dL AST (17-59) U/L ALT (4-49) U/L Total Protein (6.3-8.2) g/dL Albumin (3.5-5.0) g/dL Procalcitonin (0.02-0.09) ng/mL Microbiology - Last 24 Hours (Table) 07/29/21 16:09 Gram Stain - Preliminary Paracentesis Fluid Body Fluid Culture - Preliminary Assessment and Plan Plan: 1 acute decompensated liver failure in a patient with known history of alcoh olism and liver cirrhosis. Bilirubin is elevated. LFTs are elevated. Patient is coagulopathic. The patient has thrombocytopenia. All related to complications of acute liver failure on top of his chronic liver cirrhosis.. In addition, the patient has diffuse fluid overload/anasarca and swelling of the lower extremities and his scrotum secondary to liver cirrhosis 2 hepatitic encephalopathy. Serum ammonia level is significantly elevated 3 acute hypoxic respiratory failure with development of diffuse bilateral pulmonary infiltrates and bilateral pleural effusions, currently intubated on a mechanical ventilator. Consider underlying pneumonia 4 acute hypotension, could be septic in nature, the pro-calcitonin level is elevated highly suggestive underlying septic shock. The patient is profoundly hypotensive on high doses of pressors and he is oliguric/anuric at this point in time. 5 ascites status post paracentesis with a removal of 1.3 L of ascitic fluid, cultures are still pending 6 acute kidney injury and a creatinine is up to 2.6 and currently down to 2.4 nephrology is on the case 7 acute hyperkalemia, improved and a potassium level is down to 5.1 8 a combination of anion and anion gap metabolic acidosis, the patient continues to have lactic acidosis with a lactic acid level of 6.0 9 acute hyperbilirubinemia, bilirubin level is on the rise 10 abnormalities in LFTs secondary to liver cirrhosis, LFTs on the rise 11 acute leukocytosis 13 alcoholism 14 coagulopathy secondary to liver cirrhosis Plan Clearly the patient carries a very poor prognosis. He has signs of multisystem organ failure. He is significantly hemodynamically stable. Unsure if he can morales ndle any dialysis. Nephrology has been consulted. Their advice was to give Lasix and proceed with a insertion of dialysis catheter for possible dialysis. I met of soft tissue the patient is going to be able to handle dialysis. The mother who seems to be the next of kin may consider not doing dialysis. She understands the situation. Meanwhile, we'll continue our supportive care. Give the patient on propofol and discontinue the fentanyl Wean off pressors if possible Continue IV cefepime and give dose of vancomycin 1 Monitor electrolytes IV Lasix was given for nephrotic his recommendation He is a patient nothing by mouth Continue higher dose of pressors Continue IV proton Prognosis remains extremely poor baseline above-mentioned comorbidities and system/multisystem organ failure. Care evaluation, more than 30 minutes. Very poor prognosis. May end up going into comfort care measures. Time with Patient: Greater than 30
[2021-08-01 12:14] LABS: Glucose,Whole Blood 106 mg/dL (75-99)
[2021-08-01] MEDS ORDERED: propofoL 100 ML IV ONE ×2 (13:11→16:22)
[2021-08-01] MEDS: fentaNYL (PF). 1,000 MCG in SODIUM CHLORIDE 0.9% 80 ML IV SCH (14:37)
[2021-08-01 17:30] LABS: Glucose,Whole Blood 105 mg/dL (75-99)
--- NOTE | 2021-08-01 17:44 | P.PN ---
Progress Note - Text Progress Note Date: 08/01/21 Presenting complaint: Distended abdomen Hospital course: 56-year-old male who came into the emergency department with complaints of generalized anasarca increased swelling in the lower extremities as well as the scrotum. He was recently hospitalized a couple weeks ago diagnosed with cirrhosis of the liver. Has a history of alcoholism and states that he quit drinking approximately 15 days ago. He has been heavy drinker for many years without any known diagnosis of cirrhosis of the liver until last admission. During his last admission he was started on some low-dose diuretics. I'm covering this patient for Dr. Rey kelley July 30: Laying in bed. Tired. Abdomen distended. Significant edema. Scrotal edema. Eating 50-65%. Significant fluid overload. We'll start the patient on IV Lasix drip. Fluid restriction 1500 mL. Strict I's and O's. Follow electrolytes. Patient had 1.1 L of ascites fluid removed July 31: Patient this morning rather lethargic. Hypotensive. Decreased urine output. Hypoxic. After talking to Dr. Sierra from critical care patient's transfer to the ICU. Drips include levo fed and Precedex. Has NG tube in place and a Ventimask. Lethargic. Concentrated and decreased urine output. I did speak to patient's mother over the phone and updated her. Prognosis guarded. August 01: ICU. Critically ill. Drips include IV fentanyl, IV norepinephrine, IV propofol, IV vasopressin, IVdexmedetomidine. Intubated. NG tube. Ventilator: FiO2 80 with a PEEP of 5. Patient has gone into multisystem organ failure. Kidney function worsen. Dialysis was offered. Mother declined the same. Significant edema. Spoke to the mother at the bedside. . Agreeable to DO NOT RESUSCITATE. She understands prognosis very poor. Waiting for other son to come from [place]. Review of systems: Patient encephalopathic Active Medications Chlorhexidine Gluconate (Chlorhexidine Gluconate 15 Ml Cup) 15 ml MUCOUS MEM BID [facility] Last Admin: 08/01/21 09:35 Dose: 15 ml Documented by: Dexmedetomidine HCl 400 mcg/ (IV Solution) 100 mls @ 5.398 mls/hr IV .[id number] [facility]; Protocol Last Titration: 07/31/21 20:38 Dose: 0 mcg/kg/hr, 0 mls/hr Documented by: Propofol 1,000 mg/ IV Solution 100 mls @ 0 mls/hr IV .Q0M [facility]; Protocol Last Admin: 08/01/21 16:27 Dose: 50 mcg/kg/min, 32.387 mls/hr Documented by: Vasopressin 60 unit/ Sodium (Chloride) 153 mls @ 4.59 mls/hr IV .Q24H [facility] Last Admin: 07/31/21 20:43 Dose: 4.59 mls/hr Documented by: Fentanyl Citrate 1,000 mcg/ (Sodium Chloride) 100 mls @ 5.398 mls/hr IV .[id number] [facility]; Protocol Last Admin: 08/01/21 14:37 Dose: 0.5 mcg/kg/hr, 5.398 mls/hr Documented by: Cefepime HCl 2 gm/ Sodium (Chloride) 100 mls @ 25 mls/hr IVPB Q12HR [facility] Last Admin: 08/01/21 09:03 Dose: 25 mls/hr Documented by: Sodium Chloride (Saline 0.9%) 1,000 mls @ 50 mls/hr IV .Q20H [facility] Last Admin: 08/01/21 09:06 Dose: 50 mls/hr Documented by: Norepinephrine Bitartrate 32 (mg/ Sodium Chloride) 250 mls @ 2.53 mls/hr IV .Q24H [facility]; Protocol Lactulose (Lactulose 20 Gm/30 Ml Cup) 10 gm PO TID [facility] Last Admin: 08/01/21 09:00 Dose: 10 gm Documented by: Lorazepam (Lorazepam 2 Mg/Ml Inj) 1 mg IV Q2HR PRN PRN Reason: CIWA 8 or 9 Lorazepam (Lorazepam 2 Mg/Ml Inj) 1 mg IV Q1HR PRN PRN Reason: CIWA 10 to 15 Lorazepam (Lorazepam 2 Mg/Ml Inj) 2 mg IV Q10M PRN PRN Reason: CIWA 16 or higher Stop: 08/02/21 07:48 Multivitamins (Multivitamins, Thera 1 Each Tab) 1 each PO DAILY [facility] Last Admin: 08/01/21 09:33 Dose: 1 each Documented by: Naloxone HCl (Naloxone 0.4 Mg/Ml 1 Ml Vial) 0.2 mg IV Q2M PRN PRN Reason: Opioid Reversal Pantoprazole Sodium (Pantoprazole 40 Mg/10 Ml Vial) 40 mg IVP DAILY [facility] Last Admin: 08/01/21 09:00 Dose: 40 mg Documented by: Phytonadione (Phytonadione Oral 5 Mg/5 Ml Oral.Syrg) 10 mg PO DAILY [facility] Last Admin: 08/01/21 09:34 Dose: 10 mg Documented by: Thiamine HCl (Thiamine 100 Mg Tab) 100 mg PO BID-W/MEALS [facility] Last Admin: 08/01/21 09:34 Dose: 100 mg Documented by: On examination: VITAL SIGNS: 99.1, 57, 28, 134/49, 96% on the ventilator GENERAL APPEARANCE: , laying in bed, intubated HEENT: Or G-tube. NG tube EYES: Pupils equal. Conjunctiva icterus NECK: JVD unable to assess. Mass not palpable. RESPIRATORY: Respiratory effort increased. Lungs decreased breath sounds. CARDIOVASCULAR: First and second sounds distant. Severe edema ABDOMEN: Soft. Distended. Liver and spleen not palpable. No tenderness. No mass palpable. Dullness to percussion in the flanks PSYCHIATRY: Sedated. Unable to assess . INVESTIGATIONS, reviewed in the clinical context: August 01: White count 22.7 hemoglobin 12 platelets 67 sodium 1:30 potassium 5.1 BUN 39 creatinine 2.41 AST 56533 ALT 640 albumin 1.9. Check stat x-rays results noted July 31: White count 20 hemoglobin 9.7 platelets 63 ABGs: PH 7.2 sodium 131 potassium 5.2 creatinine 2.6 White count 17.2 hemoglobin 10.1 platelets 57 ProTime 23.4 sodium 132 potassium 5.8 BUN 21.9 creatinine 1.8 total bilirubin 10.4 AST 152 ALT 74 albumin 1.8 ammonia 46 Ultrasound liver: Cirrhosis. Ascites. Assessment and plan: -Hypotensive shock: Worsening levo fed, vasopressin -Alcohol-induced cirrhosis with evidence of portal hypertension Lopressor 25 mg twice a day-held -Hepatorenal syndrome, acute kidney injury/ATN: Worsening Follow labs closely. [place]. Patient's mother declined dialysis -Severe fluid overload from cirrhosis: Worsening IV Lasix drip-discontinued. Strict I's and O's. Fluid restriction 1500 mL. -Essential hypertension currently in shock Lopressor 25 mg twice a day-hold for now -Hepatic encephalopathy: Not improving Scheduled lactulose -Severe thrombocytopenia from cirrhosis Watch for bleeding -Metabolic acidosis from renal failure Bicarbonate drip -Lactic acidosis combination of hypotension and cirrhosis -Coagulopathy significant secondary to cirrhosis Vitamin K by mouth 10 daily -Hyperkalemia secondary to Aldactone and kidney injury Cutback Aldactone. Lasix drip. -Macrocytic anemia secondary to cirrhosis and nutritional -Hyponatremia from fluid overload: Slow to respond -Severe hyperbilirubinemia Poor prognosis for cirrhosis on multiple drips. Patient remains very critical. Prognosis very poor. Discussed with the mother the bedside. Unable to make the patient DO NOT RESUSCITATE. Early discussed with Dr. Sierra. Continue supportive care. Ventilated.
[2021-08-01 18:09] VITALS: BP 144/44
[2021-08-01 20:10] LABS: Glucose,Whole Blood 90 mg/dL (75-99)
[2021-08-01 23:45] LABS: Glucose,Whole Blood 99 mg/dL (75-99)
[2021-08-02] MEDS: NOREPINEPHRINE 32 MG in SODIUM CHLORIDE 0.9% 218 ML IV SCH ×4 (01:28→18:49)
[2021-08-02] MEDS: CEFEPIME 2 GM in SODIUM CHLORIDE 0.9% 100 ML IVPB SCH ×3 (04:17→20:47)
[2021-08-02] MEDS: THIAMINE 100 MG TAB PO SCH ×3 (04:20→17:05)
[2021-08-02] MEDS: LACTULOSE 20 GM/30 ML CUP PO SCH ×4 (04:21→21:18)
[2021-08-02] MEDS: CHLORHEXIDINE GLUCONATE 15 ML CUP MUCOUS MEM SCH ×3 (04:21→20:45)
[2021-08-02 04:49] LABS: ABG Base Excess 0.9 mmol/L; ABG HCO3 24 mmol/L (21-25); ABG PCO2 32 mmHg (35-45); ABG PH 7.49 (7.35-7.45); ABG PO2 64 mmHg (83-108); ABG TCO2 25 mmol/L (19-24)
[2021-08-02 04:51] LABS: Glucose,Whole Blood 103 mg/dL (75-99)
[2021-08-02 05:18] LABS: HCT 36.7 % (39.0-53.0); HGB 12.7 gm/dL (13.0-17.5); MCH 38.6 pg (25.0-35.0); MCHC 34.8 g/dL (31.0-37.0); MCV 110.9 fL (80.0-100.0); Macrocytosis Marked; Mean Platelet Volume 11.6; RBC 3.31 m/uL (4.30-5.90); RDW 15.3 % (11.5-15.5); WBC 20.7 k/uL (3.8-10.6)
[2021-08-02 05:25] LABS: Platelet Count 62 k/uL (150-450)
[2021-08-02 06:00] LABS: Allen Test Performed? no
[2021-08-02 06:03] LABS: Band Neutrophils % 14 %; Lymphocytes # (M) 0.83 k/uL (1.0-4.8); Monocytes # (M) 1.66 k/uL (0-1.0); Neutrophils % (M) 74 %; Nucleated Red Blood Cells 0 /100 WBC (0-0); Total Cells Counted 100
[2021-08-02 06:06] LABS: Toxic Granulation Present
--- NOTE | 2021-08-02 07:57 | XR ---
EXAMINATION TYPE: XR chest 1V portable DATE OF EXAM: 08/02/2021 COMPARISON: 08/01/2021 HISTORY: SOB, Follow Up FINDINGS: Indwelling tubes and catheters are unchanged. Scattered bilateral infiltrates persist. Stable appearance of the cardio-mediastinal structures at this time. Pleural effusion unchanged. IMPRESSION: 1. Stable portable chest. Clinical correlation and follow up until resolution is recommended.
[2021-08-02] MEDS: DEXMEDETOMIDINE/0.9% NACL(PMX) 400 MCG in EMPTY BAG 1 BAG IV SCH ×2 (09:55→09:57)
[2021-08-02] MEDS: SODIUM CHLORIDE 0.9% 150 ML with VASOPRESSIN 60 UNIT IV SCH ×2 (09:55)
[2021-08-02] MEDS: SODIUM CHLORIDE 0.9% 1,000 ML IV SCH (09:58)
[2021-08-02] MEDS: MULTIVITAMINS, THERA 1 EACH TAB PO SCH (10:15)
[2021-08-02] MEDS: PANTOPRAZOLE 40 MG/10 ML VIAL IVP SCH (10:15)
[2021-08-02] MEDS: PHYTONADIONE ORAL 5 MG/5 ML ORAL.SYRG PO SCH (10:47)
[2021-08-02] MEDS: fentaNYL (PF). 1,000 MCG in SODIUM CHLORIDE 0.9% 80 ML IV SCH (10:48)
[2021-08-02 10:58] VITALS: BMI 37.2
[2021-08-02 11:59] LABS: Glucose,Whole Blood 91 mg/dL (75-99)
--- NOTE | 2021-08-02 12:46 | P.PN ---
Subjective Progress Note Date: 08/02/21 Principal diagnosis: Patient is seen for follow-up for acute kidney injury currently oliguric with volume overload. Patient was supposed to be dialyzed yesterday however family did not want to initiate renal replacement therapy. It appears that there are plans for possible comfort care measures later on today. Patient remains on the vent. FiO2 at 70%. Creatinine 2.7 and potassium 5.0 today. Urine output noted at 40 mL last hour previously it had been 0 Objective - Vital Signs Vital signs: Vital Signs Temp 97.8 F 08/02/21 04:00 Pulse 76 08/02/21 08:00 Resp 18 08/02/21 08:00 BP 144/44 08/01/21 18:00 Pulse Ox 95 08/02/21 08:00 Intake & Output 08/01/21 08/02/21 08/02/21 18:59 06:59 18:59 Intake Total 4687.003 4347.503 356 Output Total 0 235 40 Balance 1699.122 865.503 316 Weight 124.5 kg 124.5 kg Intake: IV 156 616 56 0.9 NaCL- 250 50 Pressure bag 6 66 6 Sodium Bicarbonate 150 300 Intake, IV Titration 1543.122 484.503 300 Amount Calcium Gluconate 2 gm In 100 Sodium Chloride 0.9% 100 ml @ 100 mls/hr IVPB ONCE ONE Rx#:[id number] Cefepime 2 gm In Sodium 100 Chloride 0.9% 100 ml @ 25 mls/hr IVPB Q12HR [facility] Rx #:[id number] Norepinephrine 32 mg In 140.721 Sodium Chloride 0.9% 218 ml @ 0.05 MCG/KG/MIN 2.53 mls/hr IV .Q24H [facility] Rx#: [id number] Norepinephrine 32 mg In 607.744 Sodium Chloride 0.9% 250 ml @ 0.05 MCG/KG/MIN 2. 854 mls/hr IV .Q24H [facility] Rx#:[id number] Sodium Chloride 0.9% 1, 450 50 000 ml @ 50 mls/hr IV . Q20H [facility] Rx#:[id number] fentaNYL (PF). 1,000 mcg 85.378 100 In Sodium Chloride 0.9% 80 ml @ 0.5 MCG/KG/HR 5. 398 mls/hr IV .[id number] [facility] Rx#:[id number] propofoL 1,000 mg In 200 293.782 200 Empty Bag 1 bag @ Titrate IV .Q0M [facility] Rx#: [id number] Output: Urine 0 235 40 Other: Voiding Method Indwelling Catheter Indwelling Catheter ABP, PAP, CO, CI - Last Documented Arterial Blood Pressure 143/47 - Exam Patient is sedated on the vent. Bilateral breath sounds are heard Heart sounds are heard Abdomen is soft Edema noted 3+ bilaterally. Patient is deeply jaundiced. SAFETY SITTER exam cannot be performed - Labs CBC & Chem 7: 08/02/21 04:45 08/02/21 04:45 Labs: Abnormal Lab Results - Last 24 Hours (Table) 08/01/21 08/02/21 08/02/21 Range/Units 17:29 04:45 04:45 WBC 20.7 H (3.8-10.6) k/uL RBC 3.31 L (4.30-5.90) m/uL Hgb 12.7 L (13.0-17.5) gm/dL Hct 36.7 L (39.0-53.0) % MCV 110.9 H (80.0-100.0) fL MCH 38.6 H (25.0-35.0) pg Plt Count 62 L (150-450) k/uL Neutrophils # (Manual) 18.20 H (1.3-7.7) k/uL Lymphocytes # (Manual) 0.83 L (1.0-4.8) k/uL Monocytes # (Manual) 1.66 H (0-1.0) k/uL Macrocytosis Marked A ABG pH (7.35-7.45) ABG pCO2 (35-45) mmHg ABG pO2 (83-108) mmHg ABG Total CO2 (19-24) mmol/L ABG O2 Saturation (94-97) % Sodium 130 L (137-145) mmol/L Carbon Dioxide 21 L (22-30) mmol/L BUN 52 H (9-20) mg/dL Creatinine 2.73 H (0.66-1.25) mg/dL POC Glucose (mg/dL) 105 H (75-99) mg/dL Calcium 7.0 L (8.4-10.2) mg/dL 08/02/21 08/02/21 Range/Units 04:48 04:49 WBC (3.8-10.6) k/uL RBC (4.30-5.90) m/uL Hgb (13.0-17.5) gm/dL Hct (39.0-53.0) % MCV (80.0-100.0) fL MCH (25.0-35.0) pg Plt Count (150-450) k/uL Neutrophils # (Manual) (1.3-7.7) k/uL Lymphocytes # (Manual) (1.0-4.8) k/uL Monocytes # (Manual) (0-1.0) k/uL Macrocytosis ABG pH 7.49 H (7.35-7.45) ABG pCO2 32 L (35-45) mmHg ABG pO2 64 L (83-108) mmHg ABG Total CO2 25 H (19-24) mmol/L ABG O2 Saturation 92.0 L (94-97) % Sodium (137-145) mmol/L Carbon Dioxide (22-30) mmol/L BUN (9-20) mg/dL Creatinine (0.66-1.25) mg/dL POC Glucose (mg/dL) 103 H (75-99) mg/dL Calcium (8.4-10.2) mg/dL Microbiology - Last 24 Hours (Table) 07/29/21 16:09 Gram Stain - Preliminary Paracentesis Fluid Body Fluid Culture - Preliminary 07/31/21 14:15 Blood Culture - Preliminary Blood No Growth after 24 hours Assessment and Plan Assessment: 1. Acute kidney injury secondary to hemodynamic ATN with oliguria and volume overload. Renal replacement therapy was recommended however patient's family has decided to proceed with comfort care measures. Dialysis currently on hold. 2. Decompensated liver cirrhosis 3. Metabolic acidosis associated with acute kidney injury with respiratory alkalosis 4. Hypervolemic hyponatremia 5. Hypocalcemia associated with acute kidney injury and hypoalbuminemia 6. Hypotension maintained on pressors 7. Volume overload Plan: Continue pressors I will continue to hold off on dialysis as there are plans for possible comfort care measures later on today
--- NOTE | 2021-08-02 13:27 | P.PN ---
Subjective Progress Note Date: 08/02/21 Principal diagnosis: Acute hypoxic respiratory failure secondary to decompensated liver failure and hepatic encephalopathy On 08/01/2021., I'm seeing the patient for a follow-up. The mother has been called to the hospital and she is currently at the bedside as the patient's con dition has decompensated significantly. Note that the patient got transferred to us with hepatitic encephalopathy, hypotension, acute kidney injury, acute liver failure and acute hypoxic respiratory failure. Initially, he was resuscitated with IV fluids, antibiotics, and subsequently, he had to be intubated and placed on a mechanical ventilator. At this point in time, the patient is sedated and he is on propofol running at a dose of 50 mcg/kg per minute and fentanyl is running at 0.5 mcg/kg/h. He is well sedated for now. Is on a mechanical ventilator on assist control mode at the rate of 28, tidal volume of 500, FiO2 of 80% with a PEEP of 5. Blood gases from this morning show a pH of 7.44 with a pCO2 of 31 and pO2 of 65. Chest x-ray from this morning shows adequate positioning of the orotracheal tube. NG tube is also in place. The patient is adequate expansion of both lungs. There is no evidence of any pneumothorax. There is diffuse bilateral pulmonary infiltrates along with cardiomegaly. Possibly some bilateral pleural effusion. Note that the patient continues to be multisystem organ failure. In terms of his acute kidney injury, the patient has not produced any urine output. His creatinine maxed at 2.6 and currently is down to 2.4. His potassium level is 5.1. He was given bicarb infusion rather day yesterday and earlier this morning, he was seen by nephrology and the bicarb infusion was discontinued. The patient's potassium is already improving is down to 5.1. He was also given a dose of Lasix 80 mg IV push and we are awaiting for some urine output. His ultrasound of the kidneys are still pending for now. Meanwhile, the patient also has developed an acute liver failure. His bilirubin is up to 16. AST is up to 1944 and the ALT is up to 640. His serum ammonia level was 122. His pro calcitonin level was 5.8 and based on that, antibiotics were further modified and the patient was started on IV cefepime after obtaining. The blood cultures. The paracentesis fluid has yielded no positive outcome and the cell count and the paracentesis fluid is as low as 72. The patient's cultures are all negative thus far. His white cell count is up to 23. His influenza 12. Platelet counts are low at 67. He has extensive tooth spacing and edema in all 4 extremities at this point in time. He is hemodynamically stable and he remains on higher doses of pressors and norepinephrine is running at 0.8 mcg/kg per minute and the patient is also on physiologic dose of vasopressin at 0.03 units an hour. Reevaluated today 08/02/2021, patient remains in the ICU, intubated and mechanically ventilated, he is on assist control rate of 28, tidal volume is 500, FiO2 80% and PEEP of 5. ABG showed a pO2 of 64 pCO2 32 pH of 7.49. Hence his PEEP was increased to 10 and his FiO2 was cut down to 70%. Patient is on multiple drips including propofol at 50 vasopressin at 0.03 fentanyl at 0.5 mcg/kg/h IV fluid 0.9 normal saline at 50 mL per hour, and he is on no repinephrine at 0.6 mcg/kg/m. Patient is sedated, unresponsive to any stimuli, his CODE STATUS has been changed yesterday to DO NOT RESUSCITATE, and I believe the family would be coming in today to consider comfort care measures. Patient had paracentesis last , and about 1.3 L of fluid was drained from his abdomen. Patient has a left IJ triple-lumen catheter, right arterial line, ADL, also had a left abdominal ostomy pouch draining from the abdomen. Patient remains empirically on antibiotics, his WBC count is 20.7 hemoglobin is 12.7. Sodium is 130 potassium is 5 BUN is 52 creatinine 2.73. Objective - Vital Signs Vital signs: Vital Signs Temp 97.8 F 08/02/21 04:00 Pulse 76 08/02/21 08:00 Resp 18 08/02/21 08:00 BP 144/44 08/01/21 18:00 Pulse Ox 95 08/02/21 08:00 Intake & Output 08/01/21 08/02/21 08/02/21 18:59 06:59 18:59 Intake Total 9009.549 1310.503 356 Output Total 0 235 40 Balance 1699.122 865.503 316 Weight 124.5 kg 124.5 kg Intake: IV 156 616 56 0.9 NaCL- 250 50 Pressure bag 6 66 6 Sodium Bicarbonate 150 300 Intake, IV Titration 1543.122 484.503 300 Amount Calcium Gluconate 2 gm In 100 Sodium Chloride 0.9% 100 ml @ 100 mls/hr IVPB ONCE ONE Rx#:[id number] Cefepime 2 gm In Sodium 100 Chloride 0.9% 100 ml @ 25 mls/hr IVPB Q12HR [facility] Rx #:[id number] Norepinephrine 32 mg In 140.721 Sodium Chloride 0.9% 218 ml @ 0.05 MCG/KG/MIN 2.53 mls/hr IV .Q24H [facility] Rx#: [id number] Norepinephrine 32 mg In 607.744 Sodium Chloride 0.9% 250 ml @ 0.05 MCG/KG/MIN 2. 854 mls/hr IV .Q24H [facility] Rx#:[id number] Sodium Chloride 0.9% 1, 450 50 000 ml @ 50 mls/hr IV . Q20H [facility] Rx#:[id number] fentaNYL (PF). 1,000 mcg 85.378 100 In Sodium Chloride 0.9% 80 ml @ 0.5 MCG/KG/HR 5. 398 mls/hr IV .[id number] [facility] Rx#:[id number] propofoL 1,000 mg In 200 293.782 200 Empty Bag 1 bag @ Titrate IV .Q0M [facility] Rx#: [id number] Output: Urine 0 235 40 Other: Voiding Method Indwelling Catheter Indwelling Catheter ABP, PAP, CO, CI - Last Documented Arterial Blood Pressure 143/47 - Exam Physical Exam: Revealed a 56-year-old white male, looks jaundiced, icteric, intubated and mechanically ventilated. Comfortable. Head: Atraumatic, normocephalic. Endotracheal tube and orogastric tube are int act. HEENT:[Neck is supple.] [No neck masses.] [No thyromegaly.] [No JVD.] PERRLA, EOMI, positive icterus. Left IJ triple-lumen catheter is noted. Chest: [Symmetrical chest expansion, fine crackles at the bases, no rhonchi no wheezes. Cardiac Exam: Distant S1 and S2, no S3 gallop, no murmur. Abdomen: [Positive ascites, abdomen is distended, tense fluid wave shift, ostomy bag noted on the left upper quadrant area. Draining some serous material from the abdomen. Extremities: No clubbing, 3+ bipedal edema. No cyanosis. Neurological Exam: Cannot be assessed, patient is sedated, and called Psychiatric: Could not assess. - Labs CBC & Chem 7: 08/02/21 04:45 08/02/21 04:45 Labs: Abnormal Lab Results - Last 24 Hours (Table) 08/01/21 08/02/21 08/02/21 Range/Units 17:29 04:45 04:45 WBC 20.7 H (3.8-10.6) k/uL RBC 3.31 L (4.30-5.90) m/uL Hgb 12.7 L (13.0-17.5) gm/dL Hct 36.7 L (39.0-53.0) % MCV 110.9 H (80.0-100.0) fL MCH 38.6 H (25.0-35.0) pg Plt Count 62 L (150-450) k/uL Neutrophils # (Manual) 18.20 H (1.3-7.7) k/uL Lymphocytes # (Manual) 0.83 L (1.0-4.8) k/uL Monocytes # (Manual) 1.66 H (0-1.0) k/uL Macrocytosis Marked A ABG pH (7.35-7.45) ABG pCO2 (35-45) mmHg ABG pO2 (83-108) mmHg ABG Total CO2 (19-24) mmol/L ABG O2 Saturation (94-97) % Sodium 130 L (137-145) mmol/L Carbon Dioxide 21 L (22-30) mmol/L BUN 52 H (9-20) mg/dL Creatinine 2.73 H (0.66-1.25) mg/dL POC Glucose (mg/dL) 105 H (75-99) mg/dL Calcium 7.0 L (8.4-10.2) mg/dL 08/02/21 08/02/21 Range/Units 04:48 04:49 WBC (3.8-10.6) k/uL RBC (4.30-5.90) m/uL Hgb (13.0-17.5) gm/dL Hct (39.0-53.0) % MCV (80.0-100.0) fL MCH (25.0-35.0) pg Plt Count (150-450) k/uL Neutrophils # (Manual) (1.3-7.7) k/uL Lymphocytes # (Manual) (1.0-4.8) k/uL Monocytes # (Manual) (0-1.0) k/uL Macrocytosis ABG pH 7.49 H (7.35-7.45) ABG pCO2 32 L (35-45) mmHg ABG pO2 64 L (83-108) mmHg ABG Total CO2 25 H (19-24) mmol/L ABG O2 Saturation 92.0 L (94-97) % Sodium (137-145) mmol/L Carbon Dioxide (22-30) mmol/L BUN (9-20) mg/dL Creatinine (0.66-1.25) mg/dL POC Glucose (mg/dL) 103 H (75-99) mg/dL Calcium (8.4-10.2) mg/dL Microbiology - Last 24 Hours (Table) 07/29/21 16:09 Gram Stain - Preliminary Paracentesis Fluid Body Fluid Culture - Preliminary 07/31/21 14:15 Blood Culture - Preliminary Blood No Growth after 24 hours Assessment and Plan Assessment: Impression: Acute hypoxic respiratory failure secondary to hepatic encephalopathy and liver cirrhosis with hepatic failure. With bilateral pleural effusions, and possible underlying pneumonia, this is not entirely ruled out. And less likely. Hepatic encephalopathy, liver cirrhosis, history of alcoholism, elevated liver enzymes with thrombocytopenia. Acute hypotension possibly septic in nature with elevated pro calcitonin. P ossible abdominal sepsis. Ascites and status post paracentesis. Acute kidney injury. Acute hyperbilirubinemia. Alcoholism. Coagulopathy secondary to liver disease/cirrhosis. Recommendation: Continue ventilatory support. Continue empiric antibiotics. Patient is on cefepime. Continue GI and DVT prophylaxis. Enteral feeding. Continue to follow with different consultants. Prognosis is extremely poor and guarded. Apparently the family has been aware, and comfort care measures are being considered. Critical care time is over 30 minutes. Time with Patient: Greater than 30
--- NOTE | 2021-08-02 15:28 | P.PN ---
Progress Note - Text Progress Note Date: 08/02/21 Presenting complaint: Distended abdomen Hospital course: 56-year-old male who came into the emergency department with complaints of generalized anasarca increased swelling in the lower extremities as well as the scrotum. He was recently hospitalized a couple weeks ago diagnosed with cirrhosis of the liver. Has a history of alcoholism and states that he quit drinking approximately 15 days ago. He has been heavy drinker for many years without any known diagnosis of cirrhosis of the liver until last admission. During his last admission he was started on some low-dose diuretics. I'm covering this patient for Dr. Rey kelley July 30: Laying in bed. Tired. Abdomen distended. Significant edema. Scrotal edema. Eating 50-65%. Significant fluid overload. We'll start the patient on IV Lasix drip. Fluid restriction 1500 mL. Strict I's and O's. Follow electrolytes. Patient had 1.1 L of ascites fluid removed July 31: Patient this morning rather lethargic. Hypotensive. Decreased urine output. Hypoxic. After talking to Dr. Sierra from critical care patient's transfer to the ICU. Drips include levo fed and Precedex. Has NG tube in place and a Ventimask. Lethargic. Concentrated and decreased urine output. I did speak to patient's mother over the phone and updated her. Prognosis guarded. August 01: ICU. Critically ill. Drips include IV fentanyl, IV norepinephrine, IV propofol, IV vasopressin, IVdexmedetomidine. Intubated. NG tube. Ventilator: FiO2 80 with a PEEP of 5. Patient has gone into multisystem organ failure. Kidney function worsen. Dialysis was offered. Mother declined the same. Significant edema. Spoke to the mother at the bedside. . Agreeable to DO NOT RESUSCITATE. She understands prognosis very poor. Waiting for other son to come from [place]. August 02: ICU. Ventilator 70/10. Drips include IV norepinephrine, fentanyl, propofol, vasopressin. NG tube in place. Telemetry: Sinus rhythm. Poor urine output. Patient's brother from [place] and mother were in earlier. At this point did not ready for comfort measures. Active Medications Chlorhexidine Gluconate (Chlorhexidine Gluconate 15 Ml Cup) 15 ml MUCOUS MEM BID FOREIGN Last Admin: 08/02/21 10:14 Dose: 15 ml Documented by: Dexmedetomidine HCl 400 mcg/ (IV Solution) 100 mls @ 5.398 mls/hr IV .[id number] FOREIGN; Protocol Last Admin: 08/02/21 09:57 Dose: Not Given Documented by: Propofol 1,000 mg/ IV Solution 100 mls @ 0 mls/hr IV .Q0M FOREIGN; Protocol Last Admin: 08/02/21 13:45 Dose: 50 mcg/kg/min, 32.387 mls/hr Documented by: Vasopressin 60 unit/ Sodium (Chloride) 153 mls @ 4.59 mls/hr IV .Q24H FOREIGN Last Admin: 08/02/21 09:55 Dose: Not Given Documented by: Fentanyl Citrate 1,000 mcg/ (Sodium Chloride) 100 mls @ 5.398 mls/hr IV .[id number] FOREIGN; Protocol Last Admin: 08/02/21 10:48 Dose: 0.5 mcg/kg/hr, 5.398 mls/hr Documented by: Cefepime HCl 2 gm/ Sodium (Chloride) 100 mls @ 25 mls/hr IVPB Q12HR FOREIGN Last Admin: 08/02/21 10:25 Dose: 25 mls/hr Documented by: Sodium Chloride (Saline 0.9%) 1,000 mls @ 50 mls/hr IV .Q20H FOREIGN Last Admin: 08/02/21 09:58 Dose: Not Given Documented by: Norepinephrine Bitartrate 32 (mg/ Sodium Chloride) 250 mls @ 2.53 mls/hr IV .Q24H FOREIGN; Protocol Last Admin: 08/02/21 09:10 Dose: 0.6 mcg/kg/min, 30.362 mls/hr Documented by: Lactulose (Lactulose 20 Gm/30 Ml Cup) 10 gm PO TID FOREIGN Last Admin: 08/02/21 10:15 Dose: 10 gm Documented by: Lorazepam (Lorazepam 2 Mg/Ml Inj) 1 mg IV Q2HR PRN PRN Reason: CIWA 8 or 9 Lorazepam (Lorazepam 2 Mg/Ml Inj) 1 mg IV Q1HR PRN PRN Reason: CIWA 10 to 15 Multivitamins (Multivitamins, Thera 1 Each Tab) 1 each PO DAILY [facility] Last Admin: 08/02/21 10:15 Dose: 1 each Documented by: Naloxone HCl (Naloxone 0.4 Mg/Ml 1 Ml Vial) 0.2 mg IV Q2M PRN PRN Reason: Opioid Reversal Pantoprazole Sodium (Pantoprazole 40 Mg/10 Ml Vial) 40 mg IVP DAILY [facility] Last Admin: 08/02/21 10:15 Dose: 40 mg Documented by: Phytonadione (Phytonadione Oral 5 Mg/5 Ml Oral.Syrg) 10 mg PO DAILY [facility] Last Admin: 08/02/21 10:47 Dose: 10 mg Documented by: Thiamine HCl (Thiamine 100 Mg Tab) 100 mg PO BID-W/MEALS [facility] Last Admin: 08/02/21 10:15 Dose: 100 mg Documented by: On examination: VITAL SIGNS: 96.6, 70, 28, 128/42, 96% on ventilator GENERAL APPEARANCE: , laying in bed, intubated HEENT: Intubated. NG tube EYES: Pupils equal. Conjunctiva icterus NECK: JVD unable to assess. Mass not palpable. RESPIRATORY: Respiratory effort increased. Lungs decreased breath sounds. CARDIOVASCULAR: First and second sounds distant. Severe edema ABDOMEN: Soft. Distended. Liver and spleen not palpable. No tenderness. No mass palpable. PSYCHIATRY: Sedated. Unable to assess . INVESTIGATIONS, reviewed in the clinical context: August 02: White count 20.7 hemoglobin 12.7 weight is 62 ABG: PH 7.49 sodium 1:30 potassium 5 BUN 52 creatinine 2.73 August 01: White count 22.7 hemoglobin 12 platelets 67 sodium 1:30 potassium 5.1 BUN 39 creatinine 2.41 AST 66577 ALT 640 albumin 1.9. Check stat x-rays results noted July 31: White count 20 hemoglobin 9.7 platelets 63 ABGs: PH 7.2 sodium 131 potassium 5.2 creatinine 2.6 White count 17.2 hemoglobin 10.1 platelets 57 ProTime 23.4 sodium 132 potassium 5.8 BUN 21.9 creatinine 1.8 total bilirubin 10.4 AST 152 ALT 74 albumin 1.8 ammonia 46 Ultrasound liver: Cirrhosis. Ascites. 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 [place]. Patient's mother declined dialysis -Severe fluid overload from cirrhosis: Worsening IV Lasix drip-discontinued. Strict I's and O's. Fluid restriction 1500 mL. -Essential hypertension currently in shock Lopressor 25 mg twice a day-hold for now -Hepatic encephalopathy: Not improving Scheduled lactulose -Severe thrombocytopenia from cirrhosis Watch for bleeding -Metabolic acidosis from renal failure Bicarbonate drip -Lactic acidosis combination of hypotension and cirrhosis -Coagulopathy significant secondary to cirrhosis Vitamin K by mouth 10 daily -Hyperkalemia secondary to Aldactone and kidney injury Aldactone-discontinued. Lasix drip-discontinued. -Macrocytic anemia secondary to cirrhosis and nutritional -Hyponatremia from fluid overload: Slow to respond -Severe hyperbilirubinemia Poor prognosis for cirrhosis -DO NOT RESUSCITATE Patient remains critically ill. On the ventilator. Poor urine output. Drips include norepinephrine, fentanyl, propofol, vasopressin. Family has not finalized about comfort measures. Wishing to be appropriate. Continue supportive care.
[2021-08-02 17:59] LABS: Glucose,Whole Blood 86 mg/dL (75-99)
[2021-08-02 23:36] LABS: Glucose,Whole Blood 86 mg/dL (75-99)
[2021-08-03] MEDS: NOREPINEPHRINE 32 MG in SODIUM CHLORIDE 0.9% 218 ML IV SCH (01:21)
[2021-08-03] MEDS: SODIUM CHLORIDE 0.9% 1,000 ML IV SCH (02:00)
[2021-08-03] MEDS: SODIUM CHLORIDE 0.9% 150 ML with VASOPRESSIN 60 UNIT IV SCH ×2 (03:09)
[2021-08-03 03:59] LABS: Albumin 1.8 g/dL (3.5-5.0); Calcium 6.8 mg/dL (8.4-10.2); Potassium 4.9 mmol/L (3.5-5.1); Total Bilirubin 13.6 mg/dL (0.2-1.3); Total Protein 5.1 g/dL (6.3-8.2)
[2021-08-03 05:17] LABS: HCT 37.2 % (39.0-53.0); HGB 12.9 gm/dL (13.0-17.5); MCH 38.6 pg (25.0-35.0); MCHC 34.6 g/dL (31.0-37.0); MCV 111.6 fL (80.0-100.0); Macrocytosis Marked; Mean Platelet Volume 11.6; RBC 3.34 m/uL (4.30-5.90); RDW 15.5 % (11.5-15.5)
[2021-08-03 05:29] LABS: Platelet Count 51 k/uL (150-450)
[2021-08-03] MEDS ORDERED: DEXTROSE 50% SYRINGE 50 ML IVP STA (05:39)
[2021-08-03 06:12] LABS: Glucose,Whole Blood 113 mg/dL (75-99)
[2021-08-03] MEDS: THIAMINE 100 MG TAB PO SCH (06:17)
--- NOTE | 2021-08-03 07:54 | XR ---
EXAMINATION TYPE: XR chest 1V DATE OF EXAM: 08/03/2021 CLINICAL HISTORY: Difficulty breathing progress study. TECHNIQUE: Single AP portable supine view of the chest is obtained. COMPARISON: Chest x-ray from one day earlier and older studies FINDINGS: Stage left-sided internal jugular central venous catheter. Stable nasogastric tube and end otracheal tube. Persistent bilateral increased opacities greatest in the lower lungs. Stable mild cardiomegaly. [place] us structures are intact. IMPRESSION: Mild Cardiomegaly with bilateral increased opacities could reflect edema and/or infiltrat es with small bilateral pleural effusions suspected, suspect CHF exacerbation or fluid overload state over infectious process. Correlate clinically. No significant change from one day earlier.
[2021-08-03 09:20] VITALS: TEMP 94.1
[2021-08-03] MEDS: fentaNYL (PF). 1,000 MCG in SODIUM CHLORIDE 0.9% 80 ML IV SCH (09:24)
[2021-08-03 10:31] LABS: Basophils # (M) 0.21 k/uL (0-0.2); Eosinophils # (M) 0.21 k/uL (0-0.7); Neutrophils % (M) 82 %; Nucleated Red Blood Cells 4 /100 WBC (0-0); Total Cells Counted 200
[2021-08-03 10:32] LABS: Lymphocytes # (M) 1.23 k/uL (1.0-4.8); Monocytes # (M) 2.26 k/uL (0-1.0); Neutrophils # (M) 16.81 k/uL (1.3-7.7); WBC 20.5 k/uL (3.8-10.6)
[2021-08-03] MEDS: LACTULOSE 20 GM/30 ML CUP PO SCH (10:34)
[2021-08-03] MEDS: CHLORHEXIDINE GLUCONATE 15 ML CUP MUCOUS MEM SCH (10:34)
[2021-08-03] MEDS: CEFEPIME 2 GM in SODIUM CHLORIDE 0.9% 100 ML IVPB SCH (10:34)
[2021-08-03] MEDS: PHYTONADIONE ORAL 5 MG/5 ML ORAL.SYRG PO SCH (10:35)
[2021-08-03] MEDS: PANTOPRAZOLE 40 MG/10 ML VIAL IVP SCH (10:35)
[2021-08-03 10:38] VITALS: PULSE 87; RESP 28
[2021-08-03 10:39] LABS: Toxic Granulation Present
--- NOTE | 2021-08-03 11:14 | P.PN ---
Subjective Principal diagnosis: Patient is seen for follow-up for acute kidney injury currently oliguric with volume overload. Patient was supposed to be dialyzed, however family did not want to initiate renal replacement therapy. It appears that there are plans for possible comfort care measures later on today. Patient remains on the vent. FiO2 at 70%. Creatinine 3.3 and potassium 4.9 today. No significant urine output Objective - Vital Signs Vital signs: Vital Signs Temp 94.1 F L 08/03/21 08:15 Pulse 87 08/03/21 10:30 Resp 28 H 08/03/21 10:30 BP 144/44 08/01/21 18:00 Pulse Ox 95 08/03/21 10:30 Intake & Output 08/02/21 08/03/21 08/03/21 18:59 06:59 18:59 Intake Total 1116.879 7618.907 622.719 Output Total 70 148 0 Balance 9785.566 3151.907 622.719 Weight 124.5 kg 126 kg Intake: IV 672 672 224 0.9 NaCL- 600 600 200 Pressure bag 72 72 24 Intake, IV Titration 913.117 636.907 398.719 Amount Norepinephrine 32 mg In 359.279 198.323 248.464 Sodium Chloride 0.9% 218 ml @ 0.05 MCG/KG/MIN 2.53 mls/hr IV .Q24H FOREIGN Rx#: [id number] fentaNYL (PF). 1,000 mcg 100 100 In Sodium Chloride 0.9% 80 ml @ 0.5 MCG/KG/HR 5. 398 mls/hr IV .[id number] FOREIGN Rx#:[id number] propofoL 1,000 mg In 453.838 338.584 150.255 Empty Bag 1 bag @ Titrate IV .Q0M FOREIGN Rx#: [id number] Output: Urine 70 38 0 Other 110 Other: Voiding Method Indwelling Catheter Indwelling Catheter Indwelling Catheter ABP, PAP, CO, CI - Last Documented Arterial Blood Pressure 100/42 - Exam Patient is sedated on the vent. Bilateral breath sounds are heard Heart sounds are heard Abdomen is soft Edema noted 3+ bilaterally. Patient is deeply jaundiced. TERMITE INSPECTOR exam cannot be performed - Labs CBC & Chem 7: 08/03/21 03:15 08/03/21 03:15 Labs: Abnormal Lab Results - Last 24 Hours (Table) 08/03/21 08/03/21 08/03/21 Range/Units 03:15 03:15 06:10 WBC 20.5 H (3.8-10.6) k/uL RBC 3.34 L (4.30-5.90) m/uL Hgb 12.9 L (13.0-17.5) gm/dL Hct 37.2 L (39.0-53.0) % MCV 111.6 H (80.0-100.0) fL MCH 38.6 H (25.0-35.0) pg Plt Count 51 L (150-450) k/uL Neutrophils # (Manual) 16.81 H (1.3-7.7) k/uL Monocytes # (Manual) 2.26 H (0-1.0) k/uL Basophils # (Manual) 0.21 H (0-0.2) k/uL Nucleated RBCs 4 H (0-0) /100 WBC Macrocytosis Marked A Sodium 130 L (137-145) mmol/L Carbon Dioxide 19 L (22-30) mmol/L BUN 62 H (9-20) mg/dL Creatinine 3.34 H (0.66-1.25) mg/dL Glucose 63 L (74-99) mg/dL POC Glucose (mg/dL) 113 H (75-99) mg/dL Calcium 6.8 L (8.4-10.2) mg/dL Total Bilirubin 13.6 H (0.2-1.3) mg/dL AST 750 H (17-59) U/L ALT 438 H (4-49) U/L Total Protein 5.1 L (6.3-8.2) g/dL Albumin 1.8 L (3.5-5.0) g/dL Microbiology - Last 24 Hours (Table) 07/29/21 16:09 Gram Stain - Final Paracentesis Fluid Body Fluid Culture - Final 07/31/21 14:15 Blood Culture - Preliminary Blood No Growth after 48 hours Assessment and Plan Assessment: 1. Acute kidney injury secondary to hemodynamic ATN with oliguria and volume overload. Renal replacement therapy was recommended however patient's family has decided to proceed with comfort care measures. Dialysis currently on hold. 2. Decompensated liver cirrhosis 3. Metabolic acidosis associated with acute kidney injury with respiratory alkalosis 4. Hypervolemic hyponatremia 5. Hypocalcemia associated with acute kidney injury and hypoalbuminemia 6. Hypotension maintained on pressors 7. Volume overload Plan: Continue pressors I will continue to hold off on dialysis as there are plans for possible comfort care measures later on today DC normal saline
[2021-08-03] MEDS ORDERED: LORazepam 2 MG/ML INJ IV PRN (11:15)
[2021-08-03] MEDS ORDERED: ATROPINE OPHTH SOLN 1% 5ML BTL SUBLINGUAL PRN (11:15)
[2021-08-03] MEDS ORDERED: MORPHINE SULFATE (100 MG/2 ML) 100 MG in SODIUM CHLORIDE 0.9% 100 ML IV SCH (11:15)
[2021-08-03] MEDS ORDERED: MORPHINE SULFATE 4 MG/ML SYRINGE IV PRN (11:15)
[2021-08-03] MEDS ORDERED: MORPHINE SULFATE 2 MG/ML SYRINGE IV PRN (11:15)
[2021-08-03] MEDS ORDERED: SCOPOLAMINE 1.5MG/72HR PATCH TRANSDERM SCH (11:15)
--- NOTE | 2021-08-03 11:41 | P.PN ---
Subjective Progress Note Date: 08/03/21 Principal diagnosis: Acute hypoxic respiratory failure secondary to decompensated liver failure and hepatic encephalopathy On 08/01/2021., I'm seeing the patient for a follow-up. The mother has been called to the hospital and she is currently at the bedside as the patient's con dition has decompensated significantly. Note that the patient got transferred to us with hepatitic encephalopathy, hypotension, acute kidney injury, acute liver failure and acute hypoxic respiratory failure. Initially, he was resuscitated with IV fluids, antibiotics, and subsequently, he had to be intubated and placed on a mechanical ventilator. At this point in time, the patient is sedated and he is on propofol running at a dose of 50 mcg/kg per minute and fentanyl is running at 0.5 mcg/kg/h. He is well sedated for now. Is on a mechanical ventilator on assist control mode at the rate of 28, tidal volume of 500, FiO2 of 80% with a PEEP of 5. Blood gases from this morning show a pH of 7.44 with a pCO2 of 31 and pO2 of 65. Chest x-ray from this morning shows adequate positioning of the orotracheal tube. NG tube is also in place. The patient is adequate expansion of both lungs. There is no evidence of any pneumothorax. There is diffuse bilateral pulmonary infiltrates along with cardiomegaly. Possibly some bilateral pleural effusion. Note that the patient continues to be multisystem organ failure. In terms of his acute kidney injury, the patient has not produced any urine output. His creatinine maxed at 2.6 and currently is down to 2.4. His potassium level is 5.1. He was given bicarb infusion rather day yesterday and earlier this morning, he was seen by nephrology and the bicarb infusion was discontinued. The patient's potassium is already improving is down to 5.1. He was also given a dose of Lasix 80 mg IV push and we are awaiting for some urine output. His ultrasound of the kidneys are still pending for now. Meanwhile, the patient also has developed an acute liver failure. His bilirubin is up to 16. AST is up to 1944 and the ALT is up to 640. His serum ammonia level was 122. His pro calcitonin level was 5.8 and based on that, antibiotics were further modified and the patient was started on IV cefepime after obtaining. The blood cultures. The paracentesis fluid has yielded no positive outcome and the cell count and the paracentesis fluid is as low as 72. The patient's cultures are all negative thus far. His white cell count is up to 23. His influenza 12. Platelet counts are low at 67. He has extensive tooth spacing and edema in all 4 extremities at this point in time. He is hemodynamically stable and he remains on higher doses of pressors and norepinephrine is running at 0.8 mcg/kg per minute and the patient is also on physiologic dose of vasopressin at 0.03 units an hour. Reevaluated today 08/02/2021, patient remains in the ICU, intubated and mechanically ventilated, he is on assist control rate of 28, tidal volume is 500, FiO2 80% and PEEP of 5. ABG showed a pO2 of 64 pCO2 32 pH of 7.49. Hence his PEEP was increased to 10 and his FiO2 was cut down to 70%. Patient is on multiple drips including propofol at 50 vasopressin at 0.03 fentanyl at 0.5 mcg/kg/h IV fluid 0.9 normal saline at 50 mL per hour, and he is on no repinephrine at 0.6 mcg/kg/m. Patient is sedated, unresponsive to any stimuli, his CODE STATUS has been changed yesterday to DO NOT RESUSCITATE, and I believe the family would be coming in today to consider comfort care measures. Patient had paracentesis last , and about 1.3 L of fluid was drained from his abdomen. Patient has a left IJ triple-lumen catheter, right arterial line, ADL, also had a left abdominal ostomy pouch draining from the abdomen. Patient remains empirically on antibiotics, his WBC count is 20.7 hemoglobin is 12.7. Sodium is 130 potassium is 5 BUN is 52 creatinine 2.73. Reevaluated today on 08/03/2021, patient remains in the ICU, intubated and mechanically ventilated. He is on assist control rate of 28 tidal volume 500 FiO2 70% and PEEP of 10 his on propofol at 50 fentanyl at 0.5, norepinephrine at 0.57 mcg/kg/m. IV fluids at 50 mL per hour. No blood gases were done today, and I believe the family is going to proceed with comfort care measures sometime later today. Objective - Vital Signs Vital signs: Vital Signs Temp 94.1 F L 08/03/21 08:15 Pulse 87 08/03/21 10:30 Resp 28 H 08/03/21 10:30 BP 144/44 08/01/21 18:00 Pulse Ox 95 08/03/21 10:30 Intake & Output 08/02/21 08/03/21 08/03/21 18:59 06:59 18:59 Intake Total 3419.148 5265.907 622.719 Output Total 70 148 0 Balance 5239.430 1432.907 622.719 Weight 124.5 kg 126 kg Intake: IV 672 672 224 0.9 NaCL- 600 600 200 Pressure bag 72 72 24 Intake, IV Titration 913.117 636.907 398.719 Amount Norepinephrine 32 mg In 359.279 198.323 248.464 Sodium Chloride 0.9% 218 ml @ 0.05 MCG/KG/MIN 2.53 mls/hr IV .Q24H FOREIGN Rx#: [id number] fentaNYL (PF). 1,000 mcg 100 100 In Sodium Chloride 0.9% 80 ml @ 0.5 MCG/KG/HR 5. 398 mls/hr IV .[id number] FOREIGN Rx#:[id number] propofoL 1,000 mg In 453.838 338.584 150.255 Empty Bag 1 bag @ Titrate IV .Q0M FOREIGN Rx#: [id number] Output: Urine 70 38 0 Other 110 Other: Voiding Method Indwelling Catheter Indwelling Catheter Indwelling Catheter ABP, PAP, CO, CI - Last Documented Arterial Blood Pressure 100/42 - Exam Physical Exam: Revealed a 56-year-old white male, looks jaundiced, icteric, int ubated and mechanically ventilated. Comfortable. Head: Atraumatic, normocephalic. Endotracheal tube and orogastric tube are intact. HEENT:[Neck is supple.] [No neck masses.] [No thyromegaly.] [No JVD.] PERRLA, EOMI, positive icterus. Left IJ triple-lumen catheter is noted. Chest: [Symmetrical chest expansion, fine crackles at the bases, no rhonchi no wheezes. Cardiac Exam: Distant S1 and S2, no S3 gallop, no murmur. Abdomen: [Positive ascites, abdomen is distended, tense fluid wave shift, ostomy bag noted on the left upper quadrant area. Draining some serous material from the abdomen. Extremities: No clubbing, 3+ bipedal edema. No cyanosis. Neurological Exam: Cannot be assessed, patient is sedated Psychiatric: Could not assess. - Labs CBC & Chem 7: 08/03/21 03:15 08/03/21 03:15 Labs: Abnormal Lab Results - Last 24 Hours (Table) 08/03/21 08/03/21 08/03/21 Range/Units 03:15 03:15 06:10 WBC 20.5 H (3.8-10.6) k/uL RBC 3.34 L (4.30-5.90) m/uL Hgb 12.9 L (13.0-17.5) gm/dL Hct 37.2 L (39.0-53.0) % MCV 111.6 H (80.0-100.0) fL MCH 38.6 H (25.0-35.0) pg Plt Count 51 L (150-450) k/uL Neutrophils # (Manual) 16.81 H (1.3-7.7) k/uL Monocytes # (Manual) 2.26 H (0-1.0) k/uL Basophils # (Manual) 0.21 H (0-0.2) k/uL Nucleated RBCs 4 H (0-0) /100 WBC Macrocytosis Marked A Sodium 130 L (137-145) mmol/L Carbon Dioxide 19 L (22-30) mmol/L BUN 62 H (9-20) mg/dL Creatinine 3.34 H (0.66-1.25) mg/dL Glucose 63 L (74-99) mg/dL POC Glucose (mg/dL) 113 H (75-99) mg/dL Calcium 6.8 L (8.4-10.2) mg/dL Total Bilirubin 13.6 H (0.2-1.3) mg/dL AST 750 H (17-59) U/L ALT 438 H (4-49) U/L Total Protein 5.1 L (6.3-8.2) g/dL Albumin 1.8 L (3.5-5.0) g/dL Microbiology - Last 24 Hours (Table) 07/29/21 16:09 Gram Stain - Final Paracentesis Fluid Body Fluid Culture - Final 07/31/21 14:15 Blood Culture - Preliminary Blood No Growth after 48 hours Assessment and Plan Assessment: Impression: Acute hypoxic respiratory failure secondary to hepatic encephalopathy and liver cirrhosis with hepatic failure. With bilateral pleural effusions, and possible underlying pneumonia, this is not entirely ruled out. And less likely. Hepatic encephalopathy, liver cirrhosis, history of alcoholism, elevated liver enzymes with thrombocytopenia. Acute hypotension possibly septic in nature with elevated pro calcitonin. Possible abdominal sepsis. Ascites and status post paracentesis. Acute kidney injury. Acute hyperbilirubinemia. Alcoholism. Coagulopathy secondary to liver disease/cirrhosis. Recommendation: Continue ventilatory support. Continue hemodynamic support Continue empiric antibiotics. Continue GI and DVT prophylaxis. Enteral feeding. Prognosis is extremely poor and guarded. Agree with comfort care measures today. Critical care time is over 30 minutes. Time with Patient: Greater than 30
--- NOTE | 2021-08-03 22:02 | P.DS ---
Providers Date of admission: 07/27/21 13:35 Expected date of discharge: 08/03/21 Attending physician: Rey Shell Consults: 07/27/21 13:34 Consult Physician Urgent Consulting Provider: Feli Tucker Consult Reason/Comments: cirrhosis Do you want consulting provider notified?: Yes 07/28/21 16:46 Consult Physician Routine Consulting Provider: Rey Bahena Consult Reason/Comments: paracentesis Do you want consulting provider notified?: Yes 07/31/21 16:09 Consult Physician Routine Consulting Provider: Gael Puga Consult Reason/Comments: AK I Do you want consulting provider notified?: Yes 07/31/21 20:20 Consult Physician Stat Consulting Provider: Mackenzie Sierra Consult Reason/Comments: ICU management Do you want consulting provider notified?: Already Contacted Consult Physician Stat Consulting Provider: Mackenzie Sierra Consult Reason/Comments: ICU management Do you want consulting provider notified?: Already Contacted Consult Physician Stat Consulting Provider: Mackenzie Sierra Consult Reason/Comments: ICU management Do you want consulting provider notified?: Already Contacted 08/01/21 08:00 Consult Physician Stat Consulting Provider: Dominick Bansal Consult Reason/Comments: Dialysis cath placement Do you want consulting provider notified?: Yes Primary care physician: Rey Shell [facility] Course: Presenting complaint: Distended abdomen Hospital course: 56-year-old male who came into the emergency department with complaints of generalized anasarca increased swelling in the lower extremities as well as the scrotum. He was recently hospitalized a couple weeks ago diagnosed with cirrhosis of the liver. Has a history of alcoholism and states that he quit drinking approximately 15 days ago. He has been heavy drinker for many years without any known diagnosis of cirrhosis of the liver until last admission. During his last admission he was started on some low-dose diuretics. I'm covering this patient for Dr. Rey kelley July 30: Laying in bed. Tired. Abdomen distended. Significant edema. Scrotal edema. Eating 50-65%. Significant fluid overload. We'll start the patient on IV Lasix drip. Fluid restriction 1500 mL. Strict I's and O's. Follow electrolytes. Patient had 1.1 L of ascites fluid removed July 31: Patient this morning rather lethargic. Hypotensive. Decreased urine output. Hypoxic. After talking to Dr. Sierra from critical care patient's transfer to the ICU. Drips include levo fed and Precedex. Has NG tube in place and a Ventimask. Lethargic. Concentrated and decreased urine output. I did speak to patient's mother over the phone and updated her. Prognosis guarded. August 01: ICU. Critically ill. Drips include IV fentanyl, IV norepinephrine, IV propofol, IV vasopressin, IVdexmedetomidine. Intubated. NG tube. Ventilator: FiO2 80 with a PEEP of 5. Patient has gone into multisystem organ failure. Kidney function worsen. Dialysis was offered. Mother declined the same. Significant edema. Spoke to the mother at the bedside. . Agreeable to DO NOT RESUSCITATE. She understands prognosis very poor. Waiting for other son to come from [place]. August 02: ICU. Ventilator 70/10. Drips include IV norepinephrine, fentanyl, propofol, vasopressin. NG tube in place. Telemetry: Sinus rhythm. Poor urine output. Patient's brother from [place] and mother were in earlier. At this point did not ready for comfort measures. August 03: Family proceeded with terminal extubation and comfort care. Patient subsequently . INVESTIGATIONS, reviewed in the clinical context: August 02: White count 20.7 hemoglobin 12.7 weight is 62 ABG: PH 7.49 sodium 1:30 potassium 5 BUN 52 creatinine 2.73 August 01: White count 22.7 hemoglobin 12 platelets 67 sodium 1:30 potassium 5.1 BUN 39 creatinine 2.41 AST 46618 ALT 640 albumin 1.9. Check stat x-rays results noted July 31: White count 20 hemoglobin 9.7 platelets 63 ABGs: PH 7.2 sodium 131 potassium 5.2 creatinine 2.6 White count 17.2 hemoglobin 10.1 platelets 57 ProTime 23.4 sodium 132 potassium 5.8 BUN 21.9 creatinine 1.8 total bilirubin 10.4 AST 152 ALT 74 albumin 1.8 ammonia 46 Ultrasound liver: Cirrhosis. Ascites. Cause of : Alcohol-induced cirrhosis Assessment and plan: -Hypotensive shock: Are improving levo fed, vasopressin -Alcohol-induced cirrhosis with evidence of portal hypertension Lopressor 25 mg twice a day-held -Hepatorenal syndrome, acute kidney injury/ATN: Worsening Follow labs closely. [place]. Patient's mother declined dialysis -Severe fluid overload from cirrhosis: Worsening IV Lasix drip-discontinued. Strict I's and O's. Fluid restriction 1500 mL. -Essential hypertension currently in shock Lopressor 25 mg twice a day-hold for now -Hepatic encephalopathy: Not improving Scheduled lactulose -Severe thrombocytopenia from cirrhosis Watch for bleeding -Metabolic acidosis from renal failure Bicarbonate drip -Lactic acidosis combination of hypotension and cirrhosis -Coagulopathy significant secondary to cirrhosis Vitamin K by mouth 10 daily -Hyperkalemia secondary to Aldactone and kidney injury Aldactone-discontinued. Lasix drip-discontinued. -Macrocytic anemia secondary to cirrhosis and nutritional -Hyponatremia from fluid overload: Slow to respond -Severe hyperbilirubinemia Poor prognosis for cirrhosis -DO NOT RESUSCITATE Disposition Patient Plan - Discharge Summary Discharge Rx Participant: No New Discharge Prescriptions: No Action Multivitamins, Thera [Multivitamin (formulary)] 1 tab PO DAILY cloNIDine HCL [Catapres] 0.1 mg PO TID 30 Days #90 tab Thiamine [Vitamin B-1] 100 mg PO BID-W/MEALS 30 Days #60 tab Spironolactone [Aldactone] 50 mg PO TID Furosemide [Lasix] 20 mg PO DAILY 90 Days #90 tab cloNIDine HCL [Catapres] 0.2 mg PO TID Discharge Medication List Multivitamins, Thera [Multivitamin (formulary)] 1 tab PO DAILY 07/10/21 [History] Furosemide [Lasix] 20 mg PO DAILY 90 Days #90 tab 07/13/21 [Rx] Thiamine [Vitamin B-1] 100 mg PO BID-W/MEALS 30 Days #60 tab 07/13/21 [Rx] cloNIDine HCL [Catapres] 0.1 mg PO TID 30 Days #90 tab 07/13/21 [Rx] Spironolactone [Aldactone] 50 mg PO TID 07/27/21 [History] cloNIDine HCL [Catapres] 0.2 mg PO TID 07/27/21 [History] Discharge Disposition: - Preliminary Cause of Preliminary Cause of : Alcohol-induced cirrhosis
== END 2021-08-03 14:10 | disposition expired | DRG 432 ==
LOC: EC 10:28 → 5NMEDONC 13:35 → 2SICU 07-31 09:34
PROVIDERS: ADMIT Family Medicine; ATTEND Family Medicine
PROC: 5A1945Z Respiratory Ventilation, 24-96 Consecutive Hours (ICD-10-PCS; principal; 2021-07-31)
PROC: 03HY32Z Insertion of Monitoring Device into Upper Artery, Percutaneous Approach (ICD-10-PCS; 2021-07-31)
PROC: 4A133B1 Monitoring of Arterial Pressure, Peripheral, Percutaneous Approach (ICD-10-PCS; 2021-07-31)
PROC: 4A133J1 Monitoring of Arterial Pulse, Peripheral, Percutaneous Approach (ICD-10-PCS; 2021-07-31)
PROC: 02HV33Z Insertion of Infusion Device into Superior Vena Cava, Percutaneous Approach (ICD-10-PCS; 2021-07-31)
PROC: 0BH17EZ Insertion of Endotracheal Airway into Trachea, Via Natural or Artificial Opening (ICD-10-PCS; 2021-07-31)
DX: K70.40 Alcoholic hepatic failure without coma (principal); J96.01 Acute respiratory failure with hypoxia; K76.7 Hepatorenal syndrome; N17.0 Acute kidney failure with tubular necrosis; D68.4 Acquired coagulation factor deficiency; E87.1 Hypo-osmolality and hyponatremia; E87.4 Mixed disorder of acid-base balance; J90 Pleural effusion, not elsewhere classified; K76.6 Portal hypertension; K92.2 Gastrointestinal hemorrhage, unspecified; K70.31 Alcoholic cirrhosis of liver with ascites; Z20.822 Contact with and (suspected) exposure to COVID-19; B19.20 Unspecified viral hepatitis C without hepatic coma; D53.9 Nutritional anemia, unspecified; Z51.5 Encounter for palliative care; Z66 Do not resuscitate; D63.8 Anemia in other chronic diseases classified elsewhere; D69.59 Other secondary thrombocytopenia; E83.51 Hypocalcemia; E87.5 Hyperkalemia; E88.09 Other disorders of plasma-protein metabolism, not elsewhere classified; F10.21 Alcohol dependence, in remission; I10 Essential (primary) hypertension; N50.89 Other specified disorders of the male genital organs; R57.8 Other shock; T50.0X5A Adverse effect of mineralocorticoids and their antagonists, initial encounter; Z79.899 Other long term (current) drug therapy
CPT/HCPCS: 36415; 36600; 49083; 71045; 74018; 76705; 80048; 80053; 81001; 81003; 82042; 82140; 82150; 82533; 82805; 83605; 83615; 83690; 83735; 84145; 84157; 85025; 85027; 85610; 85730; 87040; 87070; 87205; 87635; 88108; 88305; 89050; 94002; 94003; 99285